=== PATIENT | female | born 1950 | race Caucasian/White ===

== ENCOUNTER → 2017-07-11 12:28 | Outpatient (CLI) | payer MEDICARE, SELFPAY ==
--- NOTE | 2017-07-11 12:39 | HPBI_ITS ---
MAMMOGRAPHY - BILATERAL SCREENING REASON FOR EXAM: Female, 67 years old. Routine annual screening examination. PERTINENT HISTORY: Non-contributory. TECHNIQUE: Digital bilateral breast cara (3D mammographic acquisition) in the CC and MLO projections. 2-D mediolateral oblique (MLO) and craniocaudad (CC) views of both breasts were obtained. CAD: Full Field Digital Mammography with Computer Added Detection was performed. COMPARISON: Comparison is made with prior study dated June 29, 2016 and June 27, 2015. FINDINGS: Breast Composition: The breasts are heterogeneously dense, which may obscure small masses. There are no dominant masses or suspicious calcifications. No other significant abnormalities are identified. There has been no significant change since the prior study. HPBI/SCREENING MAMM (CAD), BILAT IMPRESSION: Stable bilateral screening mammogram. Yearly follow-up mammogram recommended. (A) ASSESSMENT CATEGORY: BIRADS Category 1: Negative. A letter regarding these results will be sent to the patient by the facility within 30 days. Approximately 10% of breast cancers are not detected by mammography. A normal mammogram should not delay biopsy of a clinically suspicious abnormality. [id number] Electronically Signed: Darryn Mora MD at 8:13 EST Tel [phone], Service support ,
== END ==
PROVIDERS: Family Provider Family Medicine; PCP Family Medicine; Visit Provider Family Medicine
DX: Z12.31 Encounter for screening mammogram for malignant neoplasm of breast (principal)
CPT/HCPCS: 77063; 77067

== ENCOUNTER → 2017-08-02 10:52 | Outpatient (CLI) | payer MEDICARE, SELFPAY ==
[2017-08-02 11:50] LABS: Hematocrit 41.7 % (37-47); Hemoglobin 14.8 g/dl (12.0-15.0); Mean Corp Hgb Conc 35.5 g/gl (32-36); Mean Corpuscular Hgb 30.6 pg (27.0-32.0); Mean Corpuscular Volume 86.2 fL (81-99); Platelet Count 184 K/mm3 (150-450); RBC Distribution Width CV 13.8 % (11.6-14.6); RBC Distribution Width SD 43.3 fl (35.1-43.9); Red Blood Count 4.84 M/mm3 (4.2-5.4)
[2017-08-02 11:56] LABS: Scan Indicated on CBC? Y/N NO
[2017-08-02 12:30] LABS: ALB/GLOB Ratio 0.9 RATIO (0.9-2.4); AST(SGOT) 17 U/L (15-37); Alanine Aminotransfer ALT/SGPT 22 U/L (13-56); Albumin, Serum 3.7 g/dL (3.2-5.0); Alkaline Phosphatase 113 U/L (45-117); Anion Gap 10 (5-15); BUN 12 mg/dL (7-18); BUN/Creat Ratio 14.1 RATIO (10-20); Chloride 105 mmol/L (98-107); Cholesterol 307 mg/dL (200); Creatinine, Serum 0.85 mg/dL (0.55-1.02); EST Glomerular Filtration Rate 71 mL/min (>60); Est Glom Filt Rate - Afr Amer 86 mL/min (>60); Globulin 3.9 g/dL (2.2-4.2); Glucose 97 mg/dL (74-106); High Density Lipoprotein 46 mg/dL; Potassium 3.7 mmol/L (3.5-5.1); Protein, Total 7.6 g/dL (6.4-8.2); Sodium Level 139 mmol/L (136-145); Thyroid Stim Hormone (TSH) 0.73 uIU/mL (0.358-3.74); Triglycerides 348 mg/dL; Very Low Density Lipoprotein 70 mg/dL (5-40)
[2017-08-03 08:51] LABS: Vitamin D,25 Hydroxy 26.3 ng/mL (29.95-100.01)
== END ==
PROVIDERS: Family Provider Family Medicine; PCP Family Medicine; Visit Provider Family Medicine
DX: E61.1 Iron deficiency (principal); I47.1 Supraventricular tachycardia; E78.00 Pure hypercholesterolemia, unspecified; E55.9 Vitamin D deficiency, unspecified
CPT/HCPCS: 36415; 80053; 80061; 82306; 84443; 85027

== ENCOUNTER 2017-09-19 10:30 | Outpatient (RCR) | payer MEDICARE, SELFPAY ==
--- NOTE | 2017-08-19 09:28 | HP.PTEVAL_ITS ---
Patient's Visit Information DESI ANDERSON is a 67 year old F referred to Physical Therapy by Tony HUIZAR with a diagnosis of R ankle pain.. Date of Evaluation: 08/19/17 Physical Therapist: Gelacio Baldwin DPT, OC - Visit Plan Frequency: 3x /Week Duration: 4-6 Weeks Plan: 3x/week for 2-6 weeks. 1. US nonthermal R post tibial tendon and STM to R foot and ankle. 2. strengthen painfree R ankle. 3. stretch gastroc-soleus and post tibial tendon. 4. monitor arch support needs. 5. Balance check when ankle feeling better. - Subjective Subjective: Has rolled R ankle out a couple times. Son has gravel driveway and wears allegras. Had therapy recently for R quad as it was atrophied. It is better as she can get her foot in the car now. Lifting hurts outside of leg though. Ankle hurt on the bone which is better but hell is stiff and inside of ankle hurts. Soleus muscle (pointing) hurts. They have been hurting for a while. Turned it out in March and then walked on it for a week and needed pain pills. Daily pain since. Wears compression device. Feels like it is unstable and can push her off balance. No dizzyness. No numbness. Sleeping is OK. Not employed. 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 Not overly active. No exercises. Has plantar fasciitis and does not walk alot. Ankles feel weak. - Pain R medial ankle pain Pain Intensity (Out of 10): 0 Pain Intensity Range: 0, 4 - Objective Walks gingerly but no antalgia today, slow and I. Transfers I. Ankle aROM B 0 DF tightness in soleus and gastrfoc. INv/ev/PF full and without pain. Tenderness R post tibial tendon very tender max. Slightly swollen R foot. Pt has plastic orthotics at home but has not worn in a long time, willing to dig them out and try to use them. Strength is 4/5 throughout ankles but R inversion is painful medial ankle. Balance appears good. Pes planus R>L. - Goals Goal 1:: No tenderness R post tibial tendon. Goal Time Frame: 4-6 Weeks Goal 2:: patient state pain 1/10 at worst and 90% imporved. Goal Time Frame: 4-6 Weeks Goal 3:: I with approp ankle strength and use of arch support Goal Time Frame: 4-6 Weeks - Rehabilitation Potential Physical Therapy Diagnosis: R post tibial tendonitis. Rehabilitation Potential: Fair - Anticipated Interventions Patient/Client Instruction: Educate patient on: Condition, Plan of Care For the Purpose of:: To decrease pain, To increase ROM, To improve nutrient delivery to tissue, To improve gait and locomotor functions Therapeutic Exercise to Include: Strength training, Flexibilty training, Passive ROM, Active ROM For the Purpose of:: To decrease pain, To increase ROM, To improve nutrient delivery to tissue, To improve muscle performance and motor function, To improve gait and locomotor functions Manual Therapy Techniques to Include: Soft tissue mobilization For the Purpose of:: To improve nutrient delivery to tissue Cryotherapy (ice pack, ice massage): Yes Ultrasound (thermal/non thermal): Yes - nonthermal For the Purpose of:: To decrease pain, To decrease swelling/inflammation Thank you for the opportunity to evaluate your patient. For Medicare and Medicare HMO plans, please review the plan of care and approve it. It will need to be FAXED BACK to us at [phone] for Medicare purposes. Please let me know if there are questions or concerns regarding this plan of care. Physician Signature: Date:
--- NOTE | 2017-09-19 10:57 | HP.PTDCSUM ---
HP - PT D/C Summary It has been my pleasure to treat DESI ANDERSON under orders from Tony Lynn, for the diagnosis of R ankle pain. for a total of 8 visit(s). Discharge Date: 09/19/17 Please see the following information for a summary of their discharge status. - Subjective Subjective: Ankle is good until walked at [facility]. Hurt medially 3/[address] with dog, took about an hour. Otherwise not avoiding anything. Saw doctor and ankle doing well. That walk was yesterday and it is much better . Hurt 5/10 yesterday. [place] better upson sitting. - Pain R medial ankle pain Pain Intensity (Out of 10): 0 - Overall Improvement % Improvement: 75 - Objective Objective/Function: walks well without deviations, steps reciprocal with one rail. SLS 20 sec eo 4 sec ec. OVERALLS TILL DOING WELL AND WILLC ONTINUE VIA HEP - Goals Goal 1:: No tenderness R post tibial tendon. Goal Progress: Goal Met Goal 2:: patient state pain 1/10 at worst and 90% imporved. Goal Progress: Progressing Goal 3:: I with approp ankle strength and use of arch support Goal Progress: Goal Met - Plan Plan: D/C - D/C Information Discharge Comments: Doing well and will continue and let doctor know if pain returns. Emphasized proper arch support footwear and weaning abck to activities. If there are questions or concerns regarding this patient's physical therapy, please feel free to call me at [phone]. Thank you for the referral of this patient. Sincerely, Gelacio Baldwin, DPT, OC
== END 2017-09-19 19:00 | disposition home or self-care (01) ==
LOC: PT 10:30
PROVIDERS: Family Provider Family Medicine; PCP Family Medicine; Visit Provider Family Medicine
DX: M25.571 Pain in right ankle and joints of right foot (principal); R29.898 Other symptoms and signs involving the musculoskeletal system
CPT/HCPCS: 97035; 97110; 97161; 97530

== ENCOUNTER → 2017-12-22 10:46 | Outpatient (CLI) | payer MEDICARE, SELFPAY ==
--- NOTE | 2017-12-22 10:54 | RAD_ITS ---
STUDY: X-RAY - RIGHT SHOULDER REASON FOR EXAM: Female, 67 years old. Pain, decreased range of motion TECHNIQUE: 4 view(s) of the shoulder. COMPARISON: None. FINDINGS: Normal glenohumeral articulation. Normal acromioclavicular joint. Normal acromion. Normal humeral head and visualized proximal humerus. The soft tissue structures are unremarkable. Normal visualized pulmonary apex. RAD/Shoulder min 2 Views IMPRESSION: Normal x-ray examination of the shoulder. Electronically Signed: Vic Gaffney MD at 11:18 EDT , Service support ,
== END ==
PROVIDERS: Family Provider Family Medicine; PCP Family Medicine; Visit Provider Family Medicine
DX: M25.511 Pain in right shoulder (principal)
CPT/HCPCS: 73030

== ENCOUNTER → 2018-01-23 07:31 | Outpatient (CLI) | payer MEDICARE, SELFPAY ==
[2018-01-23 10:25] LABS: Hematocrit 39.2 % (37-47); Hemoglobin 13.6 g/dl (12.0-15.0); Mean Corp Hgb Conc 34.7 g/gl (32-36); Mean Corpuscular Hgb 30.2 pg (27.0-32.0); Mean Corpuscular Volume 87.1 fL (81-99); Mean Platelet Vol. 10.7 fl (6.2-12.0); Platelet Count 229 K/mm3 (150-450); RBC Distribution Width CV 13.5 % (11.6-14.6); RBC Distribution Width SD 41.7 fl (35.1-43.9); White Blood Count 7.5 K/mm3 (4.4-11.0)
[2018-01-23 10:30] LABS: Scan Indicated on CBC? Y/N NO
[2018-01-23 10:44] LABS: AST(SGOT) 18 U/L (15-37); Alanine Aminotransfer ALT/SGPT 24 U/L (13-56); Albumin, Serum 3.6 g/dL (3.2-5.0); Alkaline Phosphatase 121 U/L (45-117); Anion Gap 14 (5-15); BUN 13 mg/dL (7-18); BUN/Creat Ratio 14.7 RATIO (10-20); Chloride 105 mmol/L (98-107); Cholesterol 189 mg/dL (200); Creatinine, Serum 0.89 mg/dL (0.55-1.02); EST Glomerular Filtration Rate 67 mL/min (>60); Est Glom Filt Rate - Afr Amer 81 mL/min (>60); Globulin 3.7 g/dL (2.2-4.2); Glucose 111 mg/dL (74-106); High Density Lipoprotein 51 mg/dL; Iron 87 ug/dL (50-170); Potassium 3.7 mmol/L (3.5-5.1); Protein, Total 7.3 g/dL (6.4-8.2); Sodium Level 143 mmol/L (136-145); Triglycerides 320 mg/dL; Very Low Density Lipoprotein 64 mg/dL (5-40)
== END ==
PROVIDERS: Family Provider Family Medicine; PCP Family Medicine; Visit Provider Family Medicine
DX: E61.1 Iron deficiency (principal); E78.00 Pure hypercholesterolemia, unspecified; E55.9 Vitamin D deficiency, unspecified
CPT/HCPCS: 36415; 80053; 80061; 82306; 83540; 85027

== ENCOUNTER 2018-01-24 10:00 | Outpatient (RCR) | payer MEDICARE, SELFPAY ==
--- NOTE | 2018-01-09 11:30 | HP.PTEVAL ---
Patient's Visit Information DESI ANDERSON is a 67 year old F referred to Physical Therapy by Tony Lynn with a diagnosis of R shoulder pain. Date of Evaluation: 01/09/18 Physical Therapist: Raudel Wallace - Visit Plan Frequency: 1-2x /Week Duration: 4-6 Weeks Plan: Start with AROM over head and IR motions. US to reduce symptoms. Joint mobs to increase increase joint mechanics allowing for great motions. Progress postural strengthening and RTC stabilization as tolerated. - Subjective Subjective: Pt. is here today for her initial evaluation with diagnosis of R shoulder pain. Pt. reports having occassionals over the years on her R shoulder. Pt. reports no pain in R anteior shoulder. Increases pain: lifting arm over head, sleeping iwth arm over her head on her stomach, getting arm behind her back and lifting. Decreases pain: not doing the things that aggrevate it. Pt. has not trialed Ice/heat/meds. Pt. denies N/T and weakness in her R shoulder. It feels like my ar locked up on me. Pt. is hopeful to reduce symptoms symptoms and increase ROM allowing for increased toleracne with ADls and house work. - Pain R shoulder Pain Intensity (Out of 10): 3 Pain Intensity Range: 2, 6 - Objective POSTURE: Pt. had rounded shoulders, FH posture, bilateral scapular protraction. PALPATION: Pt. has increased tenderness at subacromial space, R shoulder only. No pain in UT or bicipital groove. NEUROLOGICAL: Normal, all intact. ROM: L shoulder- full no pain. R shoulder- flexion 167deg mild increase NW at end range, abd 175deg pain at end range, functional ER C4 mild increase NW, functional IR L5 increase NW. MMT: L shoulder- 5/5 throughout; R shoulder- flexion 4+/5 NE, abd 4/5 increase nW, ext 5/5 NE, ER 4+/5 increase NW, IR 4+/5 increase NW. - Special Tests R Shoulder External Rotation Lag Test - RC Tear: Negative R Shoulder Lift Off Test - Subscapular Tear: Negative R Shoulder Empty Can - SS: Positive R Shoulder Belly Press - SupScap: Negative R Shoulder Neer - Impingement: Positive R Shoulder Billingsley Chano - Impingement: Positive R Shoulder Biceps Load Test - Labrum: Positive R Shoulder Speeds Test - Labrum/Biceps: Negative - Goals Goal 1:: Pt. to be I with HEP. Goal Time Frame: 4-6 Weeks Goal 2:: Pt. to have increased R shoulder ROM to full without increase in symptoms. Goal Time Frame: 4-6 Weeks Goal 3:: Pt. to sleep throughout the night without increase in symptoms. Goal Time Frame: 4-6 Weeks Goal 4:: Pt. to have increased R shoulder strength by 1/2 grade of all effected musculature. Goal Time Frame: 4-6 Weeks - Rehabilitation Potential Physical Therapy Diagnosis: Pt. has signs and symptoms consistent with R shoulder pain. Pt. has what appears to be an impingment syndrome with subsequent hypombility with IR. Pt. has increased pain with reaching overhead and with UB dressing with reaching behind her back. Pt. would benefit from PT to increase ROM, decrease symptoms and progress R shoulder strength. Rehabilitation Potential: Excellent - Anticipated Interventions Patient/Client Instruction: Educate patient on: Condition, Plan of Care, Risk Factors, Benefits of Fitness Program For the Purpose of:: To improve safety, To improve health and function, To foster healthy habits, To improve decision making, To facilitate caregiver knowledge, To improve self management, To prevent re-injury, To improve ability to perform tasks related to life management, To improve tolerance to ADL's Therapeutic Exercise to Include: Strength training, Power training, Postural training, Flexibilty training, Passive ROM, Active ROM For the Purpose of:: To decrease pain, To decrease swelling/inflammation, To increase ROM, To improve nutrient delivery to tissue, To increase oxygenation perfusion, To improve ability of physical actions for home/community/work/leisure, To improve health of tissue, To decrease soft tissue restriction, To increase flexibility/ROM Manual Therapy Techniques to Include: Trigger point massage, Mobilization, Passive ROM, Functional dry needling, Soft tissue mobilization For the Purpose of:: To decrease pain, To increase ROM, To improve nutrient delivery to tissue, To increase oxygenation perfusion, To improve muscle performance and motor function, To improve ability to perform ADL's, To improve health of tissue, To decrease soft tissue restriction, To increase flexibility/ROM IF ES: Yes Cryotherapy (ice pack, ice massage): Yes Thermo therapy (hot pack): Yes Ultrasound (thermal/non thermal): Yes For the Purpose of:: To decrease pain, To decrease swelling/inflammation, To increase ROM, To improve nutrient delivery to tissue Thank you for the opportunity to evaluate your patient. For Medicare and Medicare HMO plans, please review the plan of care and approve it. It will need to be FAXED BACK to us at [phone] for Medicare purposes. Please let me know if there are questions or concerns regarding this plan of care. Physician Signature: Date:
--- NOTE | 2018-07-27 15:43 | HP.PT.NRP ---
HP - Discharge Summary (1) - Patient Information DESI ANDERSON was seen in my office for initial evaluation on 01/09/18. The following Plan of Care was established for this patient: Initial Frequency: 1-2x /Week Initial Duration: 4-6 Weeks - Anticipated Interventions Patient/Client Instruction: Educate patient on: Condition, Plan of Care, Risk Factors, Benefits of Fitness Program For the Purpose of:: To improve safety, To improve health and function, To foster healthy habits, To improve decision making, To facilitate caregiver knowledge, To improve self management, To prevent re-injury, To improve ability to perform tasks related to life management, To improve tolerance to ADL's Therapeutic Exercise to Include: Strength training, Power training, Postural training, Flexibilty training, Passive ROM, Active ROM For the Purpose of:: To decrease pain, To decrease swelling/inflammation, To increase ROM, To improve nutrient delivery to tissue, To increase oxygenation perfusion, To improve ability of physical actions for home/community/work/leisure, To improve health of tissue, To decrease soft tissue restriction, To increase flexibility/ROM Manual Therapy Techniques to Include: Trigger point massage, Mobilization, Passive ROM, Functional dry needling, Soft tissue mobilization For the Purpose of:: To decrease pain, To increase ROM, To improve nutrient delivery to tissue, To increase oxygenation perfusion, To improve muscle performance and motor function, To improve ability to perform ADL's, To improve health of tissue, To decrease soft tissue restriction, To increase flexibility/ROM IF ES: Yes Cryotherapy (ice pack, ice massage): Yes Thermo therapy (hot pack): Yes Ultrasound (thermal/non thermal): Yes For the Purpose of:: To decrease pain, To decrease swelling/inflammation, To increase ROM, To improve nutrient delivery to tissue This patient was last seen in our office 01/24/18. Pertinent comments regarding their Physical therapy will appear below: Pt. was seen for the initial evaluation then 1 follow up and has been seen in several months. Pt. will be Dc from PT at this point in time. At this point I will be discontinuing this patient from physical therapy. I would be happy to see this patient again in the future if found appropriate by the physician. Thank you! Raudel Wallace DPT
== END 2018-01-24 19:00 | disposition home or self-care (01) ==
LOC: PT 10:00
PROVIDERS: Family Provider Family Medicine; PCP Family Medicine; Visit Provider Family Medicine
DX: M25.511 Pain in right shoulder (principal)
CPT/HCPCS: 97035; 97110; 97161

== ENCOUNTER → 2018-04-13 16:00 | Outpatient (CLI) | payer MEDICARE, SELFPAY | PROVIDERS: Family Provider Family Medicine; PCP Family Medicine; Referring Provider Family Medicine; Visit Provider Family Medicine | DX: R10.9 Unspecified abdominal pain (principal) | CPT/HCPCS: 87086; 87088 ==

== ENCOUNTER → 2018-07-21 09:33 | Outpatient (CLI) | payer MEDICARE, SELFPAY ==
[2018-05-07 12:50] VITALS: BMI 33.5
[2018-07-21 12:14] LABS: Erythrocyte Sedimentation Rate 19 mm/hr (0-30)
[2018-07-21 12:17] LABS: Absolute Lymphocyte Count 1.55 X10^3/ul (0.83-4.51); Absolute Neutrophil Count 4.7 X10^3/uL (2.0-7.7); Basophil# 0.05 X10^3/uL; Basophil% 0.7 % (0-1); Eosinophil# 0.13 X10^3/uL; Eosinophils% 1.9 % (0-5); Hematocrit 40.5 % (37-47); Lymphocyte # 1.55 X10^3/ul (4.0); Lymphocyte % 22.2 % (19-41); Mean Corp Hgb Conc 34.6 g/gl (32-36); Mean Corpuscular Hgb 30.1 pg (27.0-32.0); Mean Corpuscular Volume 87.1 fL (81-99); Mean Platelet Vol. 10.4 fl (6.2-12.0); Monocyte# 0.53 X10^3/uL; Monocyte% 7.6 % (0-10); Neutrophil # 4.68 X10^3/uL (2.7-7.7); Neutrophil % 67.2 % (47-70); Platelet Count 222 K/mm3 (150-450); RBC Distribution Width CV 14.2 % (11.6-14.6); RBC Distribution Width SD 44.3 fl (35.1-43.9); Red Blood Count 4.65 M/mm3 (4.2-5.4)
[2018-07-21 12:18] LABS: POSITIVE COUNT NO; POSITIVE DIFFERENTIAL NO; POSITIVE MORPHOLOGY NO
[2018-07-21 12:33] LABS: ALB/GLOB Ratio 1.2 RATIO (0.9-2.4); AST(SGOT) 13 U/L (15-37); Alanine Aminotransfer ALT/SGPT 24 U/L (13-56); Albumin, Serum 3.8 g/dL (3.2-5.0); Alkaline Phosphatase 120 U/L (45-117); Amylase 48 U/L (25-115); Anion Gap 11 (5-15); BUN 12 mg/dL (7-18); BUN/Creat Ratio 13.8 RATIO (10-20); Calcium,Total 8.8 mg/dL (8.5-10.1); Chloride 106 mmol/L (98-107); Creatinine, Serum 0.87 mg/dL (0.55-1.02); EST Glomerular Filtration Rate 68 mL/min (>60); Est Glom Filt Rate - Afr Amer 83 mL/min (>60); Globulin 3.2 g/dL (2.2-4.2); Glucose 105 mg/dL (74-106); Lipase 133 U/L (73-393); Potassium 3.9 mmol/L (3.5-5.1); Sodium Level 141 mmol/L (136-145)
== END ==
PROVIDERS: Family Provider Family Medicine; PCP Family Medicine; Referring Provider Family Medicine; Visit Provider Family Medicine
DX: Q45.3 Other congenital malformations of pancreas and pancreatic duct (principal)
CPT/HCPCS: 36415; 80053; 82150; 83690; 85025; 85652

== ENCOUNTER → 2018-08-01 09:22 | Outpatient (CLI) | payer MEDICARE, SELFPAY ==
[2018-05-07 12:50] VITALS: BMI 33.5
--- NOTE | 2018-08-01 09:28 | MRI_ITS ---
STUDY: MRI ABDOMEN WITH AND WITHOUT CONTRAST REASON FOR EXAM: Female, 68 years old. Pancreatic axis, left lower quadrant pain. Compared to prior MRI of 2013. TECHNIQUE: Standardized fat and water weighted pulse sequences were obtained in all 3 orthogonal planes post contrast administration. 10 ml of Gadavist contrast material was administered intravenously for the contrast portion of the examination. COMPARISON: MRI abdomen 05/04/2013. FINDINGS: Osseous structures: No acute process. No significant degenerative features are apparent. There is mild thoracolumbar S-shaped scoliosis. Body wall soft tissues: No acute process. Inferior chest: Large sliding hiatal hernia containing much of the gastric fundus. Clear lung bases. Normal cardiac size without pericardial effusion. Nondilated aorta and central pulmonary arteries. Hepatobiliary: Normal gallbladder, biliary tree. Mild hepatomegaly, craniocaudal right liver 19.2 cm. There is mild generalized signal dropout in the liver parenchyma on opposed phase imaging consistent with hepatic steatosis. Pancreas: There is no ductal ectasia. There is no focal cystic lesion. As seen on prior imaging there is signal dropout in the pancreatic head and uncinate process on opposed phase imaging consistent with fatty infiltration of the pancreatic head. There are no suspicious lesions. Spleen: Normal spleen with small adjacent splenules. Adrenal glands: Normal. Urinary tract: Left kidney inferior pole 5.5 mm cyst nonenhancing. Simple cystic features but too small for definitive imaging characterization. Unchanged compared to prior imaging of 2013, favoring benignity. Right kidney inferior pole intracortical cyst without enhancement, 7.9 mm, stable, simple cystic features, but with size under 1 cm too small for definitive imaging characterization. Favoring benignity based on stability. Right renal inferior pole exophytic cyst measuring 3.5 cm, thin-walled, homogeneous T2 hyperintensity centrally, no enhancement, previously measuring 2.7 cm, benign Bosniak category 1 features. Moderate enlargement is not considered suspicious. There is no hydronephrosis. There is normal renal cortical thickness with symmetric nephrograms. Retroperitoneum: No mass or lymphadenopathy. Bowel: Evaluated portions of the large and small bowel exhibit no acute abnormality. MRI/MRI Abd WITH and W/O Contrast IMPRESSION: Subcentimeter cysts of the kidneys bilaterally are stable compared to prior imaging of 2012 and exhibit grossly simple cystic features. Size less than 1 cm may be too small for definitive characterization. Stability favors benignity. Dominant cyst of the right kidney has slightly increased in size compared to prior imaging but maintains simple cystic features, benign, Bosniak category 1. There is no pancreatic cyst. There was no pancreatic cyst on prior MRI abdomen. On prior imaging, there was evidence of fatty infiltration of the pancreatic head and uncinate process. This feature is stable and benign. No suspicious lesions of the pancreas. Mild hepatomegaly with evidence of mild hepatic steatosis. Prominent sliding hiatal hernia containing much of the gastric fundus, unchanged. Mild scoliosis. Electronically Signed: Sea Baron MD at 19:15 EST Tel , Service support ,
== END ==
PROVIDERS: Family Provider Family Medicine; PCP Family Medicine; Referring Provider Family Medicine; Visit Provider Family Medicine
DX: K86.9 Disease of pancreas, unspecified (principal)
CPT/HCPCS: 74183; A9585

== ENCOUNTER → 2018-08-31 10:16 | Outpatient (CLI) | payer MEDICARE, SELFPAY ==
[2018-05-07 12:50] VITALS: BMI 33.5
--- NOTE | 2018-08-31 10:19 | BI_ITS ---
MAMMOGRAPHY - BILATERAL SCREENING REASON FOR EXAM: Female, 68 years old. Routine annual screening examination. PERTINENT HISTORY: Non-contributory. Remote right stereotactic breast biopsy. TECHNIQUE: Digital bilateral breast cara (3D mammographic acquisition) in the CC and MLO projections. 2-D mediolateral oblique (MLO) and craniocaudad (CC) views of both breasts were obtained. CAD: Full Field Digital Mammography with Computer Added Detection was performed. COMPARISON: Comparison is made with prior study dated July 11, 2017 and June 29, 2016. FINDINGS: Breast Composition: The breasts are heterogeneously dense, which may obscure small masses. There are no dominant masses or suspicious calcifications. A tissue clip marker is seen in the mid medial aspect of the right breast. No other significant abnormalities are identified. There has been no significant change since the prior study. BI/SCREENING MAMM (CAD), BILAT IMPRESSION: Stable bilateral screening mammogram. Yearly follow-up mammogram recommended. (A) ASSESSMENT CATEGORY: BIRADS Category 1: Negative. A letter regarding these results will be sent to the patient by the facility within 30 days. Approximately 10% of breast cancers are not detected by mammography. A normal mammogram should not delay biopsy of a clinically suspicious abnormality. [id number] Electronically Signed: Darryn Mora, at 11:19 EDT , Service support ,
--- NOTE | 2018-08-31 10:36 | BD_ITS ---
STUDY: DUAL ENERGY X-RAY ABSORPTIOMETRY / DXA REASON FOR EXAM: Female, 68 years old. The patient is postmenopausal. Loss of height. TECHNIQUE: Bone Mineral Density (BMD) measurements of lumbar spine and bilateral hips were obtained. COMPARISON: Comparison is made with prior study dated June 29, 2016. FINDINGS: Lumbar Spine (L1-L4): g/cm2 (1.032) / T-score (-1.2) / Z-score (0.4) Findings are suggestive of osteopenia with a low fracture risk. Left Femur Total: g/cm2 (0.931) / T-score (-0.6) / Z-score (0.8) Left Femoral Neck: g/cm2 (0.768) / T-score (-1.9) / Z-score (-0.3) Right Femur Total: g/cm2 (0.904) / T-score (-0.8) / Z-score (0.6) Right Femoral Neck: g/cm2 (0.734) / T-score (-2.2) / Z-score (-0.5) The T-Scores on the most recent prior examination were: Lumbar Spine (L1-L4): There has been improvement of bone density since the previous examination. Left Femur Total: which represents a worsening of 1.5%. Right Femur Total: which represents an improvement of 2.7%. BD/Dexa Bone Density Study IMPRESSION: The patient is considered osteopenic as outlined below according to World Elias Organization (WHO) criteria with a moderate fracture risk. There has been improvement of bone density since the previous examination. Reference Information: The T-score is the number of standard deviations above or below the standard which is normal for young adults at their peak bone mineral density. The World Health Organization (WHO) interprets the T-scores as follows: Above -1 Normal bone density Between -1 and -2.5 Osteopenia Equal to / or below -2.5 Osteoporosis As a practical clinical guideline, osteopenia may be graded as follows: Mild -1 through -1.5 Moderate -1.6 through -2.0 Severe -2.1 through -2.4 The Z-score is the number of standard deviations above or below age-matched controls. A Z-score of less than -1.5 would be considered abnormal. References: 1. NIH Osteoporosis and Related Bone Diseases http://www.osteo.org 2. International Society for Clinical Densitometry http://www.iscd.org 3. National Osteoporosis Foundation http://www.nof.org Electronically Signed: Darryn Mora, at 11:29 EDT , Service support ,
== END ==
PROVIDERS: Family Provider Family Medicine; PCP Family Medicine; Referring Provider Obstetrics & Gynecology Gynecology; Visit Provider Family Medicine
DX: Z12.31 Encounter for screening mammogram for malignant neoplasm of breast (principal); Z78.0 Asymptomatic menopausal state; M85.80 Other specified disorders of bone density and structure, unspecified site
CPT/HCPCS: 77063; 77067; 77080

== ENCOUNTER → 2019-04-04 09:42 | Outpatient (CLI) | payer MEDICARE, SELFPAY ==
[2018-05-07 12:50] VITALS: BMI 33.5
[2019-04-04 12:49] LABS: AST(SGOT) 12 U/L (15-37); Alanine Aminotransfer ALT/SGPT 23 U/L (13-56); Albumin, Serum 3.5 g/dL (3.2-5.0); Alkaline Phosphatase 116 U/L (45-117); Anion Gap 6 (5-15); BUN 10 mg/dL (7-18); BUN/Creat Ratio 12.1 RATIO (10-20); Chloride 105 mmol/L (98-107); Cholesterol 282 mg/dL (200); Creatinine, Serum 0.82 mg/dL (0.55-1.02); EST Glomerular Filtration Rate 73 mL/min (>60); Est Glom Filt Rate - Afr Amer 88 mL/min (>60); Globulin 3.6 g/dL (2.2-4.2); Glucose 111 mg/dL (74-106); High Density Lipoprotein 44 mg/dL; Potassium 3.8 mmol/L (3.5-5.1); Protein, Total 7.1 g/dL (6.4-8.2); Sodium Level 138 mmol/L (136-145); Triglycerides 398 mg/dL; Very Low Density Lipoprotein 80 mg/dL (5-40)
== END ==
PROVIDERS: Family Provider Family Medicine; PCP Family Medicine; Referring Provider Family Medicine; Visit Provider Family Medicine
DX: E78.00 Pure hypercholesterolemia, unspecified (principal)
CPT/HCPCS: 36415; 80053; 80061

== ENCOUNTER → 2019-10-02 08:39 | Outpatient (CLI) | payer MEDICARE, SELFPAY ==
[2018-05-07 12:50] VITALS: BMI 33.5
--- NOTE | 2019-10-02 08:42 | BI_ITS ---
MAMMOGRAPHY - BILATERAL SCREENING REASON FOR EXAM: Female, 69 years old. Routine annual screening examination. PERTINENT HISTORY: Non-contributory. Remote right stereotactic breast biopsy. TECHNIQUE: Digital bilateral breast linwood (3D mammographic acquisition) in the CC and MLO projections. 2-D mediolateral oblique (MLO) and craniocaudad (CC) views of both breasts were obtained. CAD: Full Field Digital Mammography with Computer Added Detection was performed. COMPARISON: Comparison is made with prior study dated August 31, 2018 and July 11, 2017. FINDINGS: Breast Composition: The breasts are heterogeneously dense, which may obscure small masses. There are no dominant masses or suspicious calcifications. Stable benign-appearing bilateral axillary lymph nodes. No other significant abnormalities are identified. There has been no significant change since the prior study. BI/SCREEN MAMM (CAD) W/LINWOOD BILAT IMPRESSION: Stable bilateral screening mammogram. Yearly follow-up mammogram recommended. (A) ASSESSMENT CATEGORY: BIRADS Category 2: Benign. A letter regarding these results will be sent to the patient by the facility within 30 days. Approximately 10% of breast cancers are not detected by mammography. A normal mammogram should not delay biopsy of a clinically suspicious abnormality. [id number] Electronically Signed: Darryn Mora, at 9:46 EDT , Service support ,
== END ==
PROVIDERS: PCP Family Medicine; Referring Provider Family Medicine; Visit Provider Family Medicine
DX: Z12.31 Encounter for screening mammogram for malignant neoplasm of breast (principal)
CPT/HCPCS: 77063; 77067

== ENCOUNTER → 2019-12-18 09:06 | Outpatient (CLI) | payer MEDICARE, SELFPAY ==
[2018-05-07 12:50] VITALS: BMI 33.5
[2019-12-18 09:55] LABS: Absolute Lymphocyte Count 1.92 X10^3/uL (0.83-4.51); Absolute Neutrophil Count 4.8 X10^3/uL (2.0-7.7); Basophil# 0.05 X10^3/uL; Basophil% 0.7 % (0-1); Eosinophil# 0.18 X10^3/uL; Eosinophils% 2.4 % (0-5); Hematocrit 36.8 % (37-47); Hemoglobin 12.2 g/dL (12.0-15.0); Lymphocyte # 1.92 X10^3/ul (4.0); Lymphocyte % 25.8 % (19-41); Mean Corp Hgb Conc 33.2 g/dL (32-36); Mean Corpuscular Hgb 29.4 pg (27.0-32.0); Mean Corpuscular Volume 88.7 fL (81-99); Mean Platelet Vol. 10.3 fl (6.2-12.0); Monocyte# 0.52 X10^3/uL; NRBC Flagged by Analyzer 0 % (0-5); Neutrophil # 4.75 X10^3/uL (2.7-7.7); Neutrophil % 63.7 % (47-70); Platelet Count 244 K/mm3 (150-450); RBC Distribution Width CV 13.6 % (11.6-14.6); RBC Distribution Width SD 43.8 fl (35.1-43.9); Red Blood Count 4.15 M/mm3 (4.2-5.4); White Blood Count 7.5 K/mm3 (4.4-11.0)
[2019-12-18 10:30] LABS: ALB/GLOB Ratio 1.2 RATIO (0.9-2.4); AST(SGOT) 11 U/L (15-37); Alanine Aminotransfer ALT/SGPT 18 U/L (13-56); Albumin, Serum 3.7 g/dL (3.2-5.0); Alkaline Phosphatase 120 U/L (45-117); Anion Gap 5 (5-15); BUN 16 mg/dL (7-18); Calcium,Total 8.9 mg/dL (8.5-10.1); Chloride 108 mmol/L (98-107); Creatinine, Serum 0.84 mg/dL (0.55-1.02); EST Glomerular Filtration Rate 71 mL/min (>60); Est Glom Filt Rate - Afr Amer 86 mL/min (>60); Globulin 3.1 g/dL (2.2-4.2); Glucose 110 mg/dL (74-106); Potassium 4.1 mmol/L (3.5-5.1); Protein, Total 6.8 g/dL (6.4-8.2); Sodium Level 139 mmol/L (136-145)
== END ==
PROVIDERS: PCP Family Medicine; Referring Provider Family Medicine; Visit Provider Family Medicine
DX: R10.32 Left lower quadrant pain (principal)
CPT/HCPCS: 36415; 80053; 85025; 87086; 87088

== ENCOUNTER → 2019-12-21 10:50 | Outpatient (CLI) | payer MEDICARE, SELFPAY ==
[2018-05-07 12:50] VITALS: BMI 33.5
[2019-12-21 13:26] LABS: Microalbumin,Random Urine 36.3 mg/L (NO RANGE EST.)
== END ==
PROVIDERS: PCP Family Medicine; Referring Provider Family Medicine; Visit Provider Family Medicine
DX: R10.32 Left lower quadrant pain (principal)
CPT/HCPCS: 82043; 82570; 87086; 87088

== ENCOUNTER → 2019-12-24 15:10 | Outpatient (CLI) | payer MEDICARE, SELFPAY ==
[2019-12-24 14:58] VITALS: BMI 32.5
[2019-12-24 15:16] LABS: Bacteria 0 SEEN /hpf (None Seen); Mucous, Urine 0 SEEN /hpf (<or=2+); Red Blood Cells-Urine 0 SEEN /hpf (0-5); Squamous Epithelial Cells - UA 0 SEEN /hpf (5-10); White Blood Cells 0 SEEN /hpf (0-5)
[2019-12-24 18:03] LABS: Color, Urine Yellow (Yellow); Glucose, Dipstick Normal (Normal); Ketone-Dipstick Negative (Negative); Leukocyte Esterase-Dipstick Negative /ul (Negative); Nitrite-Dipstick Negative (Negative); Occult Blood-Urine Negative /ul (Negative); Protein-Dipstick Negative (Negative); Urine Bilirubin Dipstick Negative (Negative); Urine Clarity Clear (Clear); Urine Urobilinogen Normal (Normal); Urine pH 6.5 (5.0 - 8.0)
== END ==
PROVIDERS: PCP Family Medicine; Referring Provider Family Medicine; Visit Provider Family Medicine
DX: R10.32 Left lower quadrant pain (principal)
CPT/HCPCS: 81001; 87086; 87088

== ENCOUNTER 2020-01-01 07:29 | Day surgery (SDC) | payer MEDICARE, SELFPAY ==
[2019-12-24 14:58] VITALS: BMI 32.5
[2020-01-01] VITALS (7 sets, daily range): BP systolic 108–142; BP diastolic 64–71; PULSE 57–64; RESP 15–16; TEMP 36.5–36.7; O2SAT 98–100; BMI 32.0
--- NOTE | 2020-01-01 | COLBX_PTH ---
PATIENT: DESI ANDERSON LOC: EN U#:[id number] AGE/SX: 69/F ROOM: RE01/01/[address]: Dr. Fernandez Asif MD : [id number] BED: DIS: 01/01/2020 SPEC #: [id number] RECD: 01/01/20 13:04 STATUS: KEVIN VENUS #: [id number] ARNOL: 01/01/20 00:[address]: Fernandez Asif DEPT: SURGICAL PATHOLOGY RECD BY: Olman Carpio ENTERED: 01/01/20 13:05 SP TYPE: COLON BX MELISSA DR: Dr. Tony Lynn MD Tissues: COLON BIOPSY Procedures: Surgery Specimen Level IV HEADER OPERATION: Colonoscopy (MAC) PRE-OP DIAGNOSIS: Colonic polyps, abdomen pain TISSUE SUBMITTED: Random colonic biopsy MICROSCOPIC DIAGNOSIS Colon, random biopsy: Fragments of colonic mucosa, no pathologic diagnosis. SJ:nena 01/02/20 MICROSCOPIC DESCRIPTION Slides are reviewed. GROSS DESCRIPTION Received in fixative is one container labeled with the patient's name and designated random colonic biopsy. The specimen consists of multiple irregular fragments of light marsh soft tissue that in aggregate measure 1.5 x 0.5 x 0.1 cm. The specimen is totally submitted in one cassette. / SJ:rg 01/01/20 TC:4 CPT: 89942
[2020-01-01] MEDS: Lactated Ringers 1,000 ML 100 ML IV (08:23)
--- NOTE | 2020-01-01 10:16 | HP.PCM_ITS ---
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 Is patient in pain?: No Allergies No Known Allergies Allergy (Unverified 12/24/19 14:59) Medications amlodipine 5 mg tablet 5 mg PO DAILY tab 12/24/19 [History Confirmed 12/24/19] atenolol 50 mg tablet 50 mg PO DAILY tab 12/24/19 [History Confirmed 12/24/19] atorvastatin 40 mg tablet 40 mg PO DAILY tab 12/24/19 [History Confirmed 12/24/19] calcium carb-vit D3-minerals 600 mg calcium-400 unit tablet 1 tab PO BID 12/24/19 [History Confirmed 12/24/19] citalopram 10 mg tablet 10 mg PO DAILY tab 12/24/19 [History Confirmed 12/24/19] fexofenadine 180 mg tablet 180 mg PO DAILY 12/24/19 [History Confirmed 12/24/19] fluticasone propionate 50 mcg/actuation nasal spray,suspension 2 spray INTRANASAL DAILY 12/24/19 [History Confirmed 12/24/19] lisinopril 10 mg tablet 10 mg PO DAILY tab 12/24/19 [History Confirmed 12/24/19] multivitamin 1 tab PO DAILY 12/24/19 [History Confirmed 12/24/19] omeprazole 40 mg capsule,delayed release 40 mg PO DAILY cap 12/24/19 [History Confirmed 12/24/19] FOR[facility], LAT[facility] Medical History (Updated 12/24/19 @ 14:[address] Fernandez Asif MD) Personal history of colonic polyps (Acute) Abdominal pain (Acute) Abdominal pain (Acute) Acid reflux (Acute) Hemorrhoids (Acute) Hypertension (Chronic) Surgical History (Updated 12/24/19 @ 14:53 by Destinee Jefferson) Hx of right breast biopsy (Acute) Hx of colonoscopy (Acute) History of esophagogastroduodenoscopy (EGD) (Acute) History of bunionectomy of both great toes (Acute) Hx of oral surgery (Acute) Family History (Updated 12/24/19 @ 14:55 by Destinee M Ronny) Sister Diabetes Mother CVA (cerebral vascular accident) High cholesterol Brother High cholesterol Social History (Updated 12/24/19 @ 16:[address] Fernandez Asif MD) Smoking Status: Never smoker alcohol intake: never substance use type: does not use caffeine: Yes what type of physical activity do you participate in: none frequency: does not exercise HPI HPI HPI: DESI ANDERSON, is a 69 F who presents to the office today for surgical consultation regarding a personal history of colon polyps and newer onset of l eft lower quadrant abdominal pain. Patient also has a longstanding history of intermittent gastroesophageal reflux disease. She is referred by her primary care is in Dr. Tony Lynn and a written copy of my surgical consult and recommendations will be returned to him. She saw him in the office on December 18, 2019. She was complaining of intermittent left lower quadrant pain. No fever or chills or sweats or bright red blood per rectum or melena or mucus. She had a colonoscopy done by Dr. Casper Walker 2016 which was notable for 3 adenomatous polyps. She denies family history of colon polyps or colon cancer. She has not had any weight loss. She denies any history of DVT. She intermittently has heartburn. This is been ongoing for approximately 20 years. She infrequently needs omeprazole therapy and she states perhaps once per month. HPI HPI HPI: DESI ANDERSON, is a 69 F who presents to the office today for ROS General General: No weight change, appetite, fatigue, colon cancer, breast cancer or weakness HEENT HEENT: No difficulty swallowing, eye injury, eye surgery, swollen glands or hoarseness Endo Endocrine: No thyroid disease, diabetes mellitus, thyroid cancer, Hair loss, heat intolerance or cold intolerance Skin Skin: No rash or changing moles Musc Musculoskeletal: No back problems, arthritis, rheumatoid arthritis, gout or joint pain Cardio Cardiovascular: Yes high blood pressure; no murmur, pacemaker, heart disease, atrial fibrillation, heart attack, heart stent, palpitations, shortness of breat with exertion or chest pain Psych Psychiatric: No depression, anxiety or hearing voices Resp Respiratory: No shortness of breath, No sleep apnea, No cough, No COPD, No asthma, No emphysema, No wheezing Gastro Gastrointestinal: Yes abdominal pain, No nausea or vomiting, No diarrhea, No constipation, No blood in stool, Yes acid reflux, No hemorrhoids, No ulcers, No gallbladder problem, No black,tarry stools Lon Hematologic: No blood thinners, No blood disorders, No bleeding, No anemia, No blood clots Neuro Neurologic: No weakness Exam Const General: cooperative, healthy appearing, comfortable, no acute distress Nutritional Appearance: obese Orientation: alert, awake [facility] Head: normal to inspection Eyes General: appearance normal, both eyes and all related structures Resp Effort & Inspection: normal respiratory effort Auscultation: clear to auscultation bilaterally Cardio Rate: regular rate Rhythm: regular rhythm Heart Sounds: no murmurs GI Palpation: soft, no hepatosplenomegaly Auscultation: normal bowel sounds Other: No focal tenderness, no rebound, no guarding, no particular finding left lower quadrant Musc Cervical Spine: normal cervical lordosis Neuro Cognition: normal cognition Extrem General: no calf tenderness Psych Affect: normal affect Assessment & Plan Problems 1. Personal history of colonic polyps Z86.010 2. Left lower quadrant abdominal pain R10.32 Plan I recommended the patient a colonoscopy with possible biopsy or polypectomy as indicated. I discussed the technique, benefit, risk and alternatives. She has had an opportunity to ask and have questions answered. She previously has had a remote upper endoscopy which she states was unremarkable. Her heartburn symptoms seem very intermittent and well controlled with medications. Her clinical exam of the abdomen today is rather unremarkable. We discussed potential etiology of diverticulitis or colitis but clinical exam does not correlate currently. Careful inspection with the colonoscope will be pursued an attempt to further assist with diagnosis of left lower quadrant abdominal pain. She has had an opportunity to ask and have questions answered. We will schedule procedure at her discretion. She is aware of Covid-19 pandemic. She is aware that the [facility] is reporting a low local incidence. I appreciate the opportunity of assisting with her surgical care Cc: Dr. Tony Asif M.D., F.A.C.S. I now have records from [facility] dated May 17, 2016. Colonoscopy to the cecum with several snare polypectomies. 3 sessile polyps removed from the colon via hot snare. One was in the hepatic flexure one was in the transverse colon and one was at the splenic flexure. Pathology suggested tubular adenoma at the hepatic flexure. Apparently the others were not submitted. Coding Level of Care Code 91688 Diagnoses Personal history of colonic polyps Z86.010 Left lower quadrant abdominal pain R10.32 ??Abdominal location: left lower quadrant I have re-examined the patient. There are no clinical changes since date of exam. Procedure Criteria Procedure Type: Elective COVID Risk Discussion: The surgeon/proceduralist and patient have discussed in detail the risk of exposure to and/or potential harm posed by the COVID-19 virus with having a surgery/procedure at this time versus the risk of delaying the surgery/procedure. It is not possible to know either the risk of delaying the surgery or procedure or chance of getting an infection with perfect accuracy, but a joint decision was made between the patient and the surgeon/proceduralist to proceed at this time with the scheduled surgery/procedure as indicated on the consent form.
--- NOTE | 2020-01-01 10:46 | OP.COLON_ITS ---
Patient Name: Sanaz Howell Procedure Date: 01/01/2020 10:16 AM Date of : 1950 Age: 69 Procedure: Colonoscopy Indications: High risk colon cancer surveillance: Personal history of colonic polyps Providers: Fernandez Asif MD Referring MD: Velasquez Lynn Medicines: See the Anesthesia note for documentation of the administered medications Patient Profile: Last Colonoscopy: April 2016. Complications: No immediate complications. Procedure: Pre-Anesthesia Assessment: - Prior to the procedure, a History and Physical was performed, and patient medications and allergies were reviewed. The patient's tolerance of previous anesthesia was also reviewed. The risks and benefits of the procedure and the sedation options and risks were discussed with the patient. All questions were answered, and informed consent was obtained. Prior Anticoagulants: The patient has taken no previous anticoagulant or antiplatelet agents. ASA Grade Assessment: II - A patient with mild systemic disease. After reviewing the risks and benefits, the patient was deemed in satisfactory condition to undergo the procedure. After I obtained informed consent, the scope was passed under direct vision. Throughout the procedure, the patient's blood pressure, pulse, and oxygen saturations were monitored continuously. The Colonoscope was introduced through the anus and advanced to the cecum, identified by appendiceal orifice and ileocecal valve. The colonoscopy was performed without difficulty. The patient tolerated the procedure well. The quality of the bowel preparation was adequate to identify polyps. The ileocecal valve and the appendiceal orifice were photographed. Scope In: 10:26:21 AM Scope Withdrawal Time 0 hours 6 minutes 28 seconds Scope Out: 10:38:35 AM Total Procedure Duration Time 0 hours 12 minutes 14 seconds Findings: The digital rectal exam findings include non-thrombosed external hemorrhoids, non-thrombosed internal hemorrhoids and internal hemorrhoids that prolapse with straining, but require manual replacement into the anal canal (Grade III). Scattered diverticula were found in the sigmoid colon. Biopsies for histology were taken with a cold forceps from the entire colon for evaluation of microscopic colitis. Impression: - Non-thrombosed external hemorrhoids, non-thrombosed internal hemorrhoids and internal hemorrhoids that prolapse with straining, but require manual replacement into the anal canal (Grade III) found on digital rectal exam. - Diverticulosis in the sigmoid colon. Biopsied. Recommendation: - Discharge patient to home. - Resume previous diet. - Continue present medications. - Repeat colonoscopy in 5 years for surveillance. - Telephone my office for pathology results in 1 week. Procedure Code(s): --- Professional --- 42795, Colonoscopy, flexible; with biopsy, single or multiple Diagnosis Code(s): --- Professional --- Z86.010, Personal history of colonic polyps K64.2, Third degree hemorrhoids K64.4, Residual hemorrhoidal skin tags K57.30, Diverticulosis of large intestine without perforation or abscess without bleeding CPT copyright 2017 [employer]. All rights reserved. The codes documented in this report are preliminary and upon cognos architect review may be revised to meet current compliance requirements. Fernandez Asif MD 01/01/2020 10:45:56 AM This report has been signed electronically. Number of Addenda: 0 Note Initiated On: 01/01/2020 10:16 AM
--- NOTE | 2020-01-01 10:46 | OP.CCLET_ITS ---
01/01/2020 Velasquez Lynn [address] [place] [address] Re : Colonoscopy procedure for Sanaz Howell Dear Dr. Lynn This procedure was performed on Wednesday, January 01, 2020. My impressions and recommendations are as follows: Impressions : - Non-thrombosed external hemorrhoids, non-thrombosed internal hemorrhoids and internal hemorrhoids that prolapse with straining, but require manual replacement into the anal canal (Grade III) found on digital rectal exam. - Diverticulosis in the sigmoid colon. Biopsied. Recommendations : - Discharge patient to home. - Resume previous diet. - Continue present medications. - Repeat colonoscopy in 5 years for surveillance. - Telephone my office for pathology results in 1 week. My findings are described in the full procedure note, which is enclosed. If I can be of further assistance, please feel free to contact me at Doctor phone number(s): Work: . Sincerely, Fernandez Asif MD 01/01/2020 10:45:56 AM This report has been signed electronically.
== END 2020-01-01 11:21 | disposition home or self-care (01) ==
LOC: EN 07:38 → AC 07:41
PROVIDERS: PCP Family Medicine; Referring Provider Family Medicine; Visit Provider Surgery
PROC: 0DJD8ZZ Inspection of Lower Intestinal Tract, Via Natural or Artificial Opening Endoscopic (ICD-10-PCS; CPT 45378; principal; 2020-01-01 09:40)
DX: Z12.11 Encounter for screening for malignant neoplasm of colon (principal); K21.9 Gastro-esophageal reflux disease without esophagitis; K64.2 Third degree hemorrhoids; K64.4 Residual hemorrhoidal skin tags; K57.30 Diverticulosis of large intestine without perforation or abscess without bleeding; R10.32 Left lower quadrant pain; I10 Essential (primary) hypertension; R00.0 Tachycardia, unspecified; E78.00 Pure hypercholesterolemia, unspecified; F41.9 Anxiety disorder, unspecified; E66.9 Obesity, unspecified; Z68.31 Body mass index [BMI] 31.0-31.9, adult; Z87.19 Personal history of other diseases of the digestive system; Z79.899 Other long term (current) drug therapy
CPT/HCPCS: 45380; 87635; 88305; 94799; J7120; U0003

== ENCOUNTER → 2020-07-22 10:36 | Outpatient (CLI) | payer MEDICARE, SELFPAY ==
[2020-01-01 08:12] VITALS: BMI 32.0
[2020-07-22 12:51] LABS: Hematocrit 35.1 % (37-47); Hemoglobin 11.2 g/dL (12.0-15.0); Mean Corp Hgb Conc 31.9 g/dL (32-36); Mean Corpuscular Hgb 27.2 pg (27.0-32.0); Mean Corpuscular Volume 85.2 fL (81-99); Mean Platelet Vol. 10.4 fl (6.2-12.0); Platelet Count 323 K/mm3 (150-450); Red Blood Count 4.12 M/mm3 (4.2-5.4); White Blood Count 7.2 K/mm3 (4.4-11.0)
[2020-07-22 12:56] LABS: Vitamin D,25 Hydroxy 47.5 ng/mL
[2020-07-22 13:08] LABS: AST(SGOT) 12 U/L (15-37); Alanine Aminotransfer ALT/SGPT 19 U/L (13-56); Albumin, Serum 3.5 g/dL (3.2-5.0); Alkaline Phosphatase 136 U/L (45-117); Anion Gap 7 (5-15); BUN 12 mg/dL (7-18); BUN/Creat Ratio 12.6 RATIO (10-20); Calcium,Total 9.3 mg/dL (8.5-10.1); Chloride 107 mmol/L (98-107); Cholesterol 179 mg/dL (200); Creatinine, Serum 0.96 mg/dL (0.55-1.02); EST Glomerular Filtration Rate 61 mL/min (>60); Est Glom Filt Rate - Afr Amer 74 mL/min (>60); Globulin 3.6 g/dL (2.2-4.2); Glucose 114 mg/dL (74-106); High Density Lipoprotein 57 mg/dL; Iron 30 ug/dL (50-170); Potassium 3.9 mmol/L (3.5-5.1); Protein, Total 7.1 g/dL (6.4-8.2); Sodium Level 139 mmol/L (136-145); Thyroid Stim Hormone (TSH) 1.17 uIU/mL (0.358-3.74); Triglycerides 236 mg/dL; Very Low Density Lipoprotein 47 mg/dL (5-40)
== END ==
PROVIDERS: PCP Family Medicine; Referring Provider Family Medicine; Visit Provider Family Medicine
DX: E61.1 Iron deficiency (principal); F41.1 Generalized anxiety disorder; E55.9 Vitamin D deficiency, unspecified; K21.9 Gastro-esophageal reflux disease without esophagitis; I10 Essential (primary) hypertension
CPT/HCPCS: 36415; 80053; 80061; 82306; 83540; 84443; 85027

== ENCOUNTER 2020-08-05 06:25 | Outpatient (RCR) | payer MEDICARE, SELFPAY ==
[2020-01-01 08:12] VITALS: BMI 32.0
[2020-08-05] MEDS: COVID-19 VACC, MRNA(PFIZER)/PF 30 MCG/0.3 ML SYRINGE IM (10:20)
[2020-08-26] MEDS: COVID-19 VACC, MRNA(PFIZER)/PF 30 MCG/0.3 ML SYRINGE IM (10:06)
== END 2020-11-04 23:59 ==
LOC: IMMUN 06:25
PROVIDERS: PCP Family Medicine; Referring Provider Family Medicine; Visit Provider Family Medicine
DX: Z23 Encounter for immunization (principal)
CPT/HCPCS: 0001A; 0002A; 91300

== ENCOUNTER → 2020-10-13 13:42 | Outpatient (CLI) | payer MEDICARE, SELFPAY ==
[2020-01-01 08:12] VITALS: BMI 32.0
--- NOTE | 2020-10-13 13:44 | BI_ITS ---
MAMMOGRAPHY - BILATERAL SCREENING 3-D TOMOSYNTHESIS REASON FOR EXAM: Female, 70 years old. Routine screening PERTINENT HISTORY: No significant family history, previous biopsy. TECHNIQUE: 2-D mammograms and 3-D Tomosynthesis of the breast (s) were performed. CAD was performed. COMPARISON: 10/02/2019 FINDINGS: The breast composition is heterogeneously dense that can obscure small breast masses. Scattered benign calcifications are seen. No dense spiculated masses or suspicious microcalcifications are identified. No architectural distortion is identified. There is no skin thickening or retraction. There has been no significant change since the prior study. BI/SCRN MAMM (CAD)W/[place]WOOD BILAT IMPRESSION: No mammographic signs of malignancy. Routine yearly mammograms recommended. ASSESSMENT CATEGORY: BIRADS Category 2: Benign. A letter regarding these results will be sent to the patient by the facility within 30 days. FOLLOW UP RECOMMENDATION: Yearly follow up mammogram recommended. (A) Approximately 10% of breast cancers are not detected by mammography. A normal mammogram should not delay biopsy of a clinically suspicious abnormality. Electronically Signed: Vic Gaffney MD at 14:51 EDT , Service support ,
== END ==
PROVIDERS: PCP Family Medicine; Referring Provider Family Medicine; Visit Provider Family Medicine
DX: Z12.31 Encounter for screening mammogram for malignant neoplasm of breast (principal)
CPT/HCPCS: 77063; 77067

== ENCOUNTER → 2020-11-19 10:53 | Outpatient (CLI) | payer MEDICARE, SELFPAY ==
[2020-01-01 08:12] VITALS: BMI 32.0
--- NOTE | 2020-11-19 10:56 | BD_ITS ---
STUDY: DUAL ENERGY X-RAY ABSORPTIOMETRY / DXA REASON FOR EXAM: Female, 70 years old. Z780. Patient is postmenopausal. Loss of height. TECHNIQUE: Bone Mineral Density (BMD) measurements of lumbar spine and bilateral hips were obtained. COMPARISON: Comparison is made with prior study dated 08/31/2018. FINDINGS: Lumbar Spine (L1-L4): g/cm2 (1.014) / T-score (-1.4) / Z-score (0.3) Findings are suggestive of osteopenia with a low fracture risk. Left Femur Total: g/cm2 (0.935) / T-score (-0.6) / Z-score (1.0) Left Femoral Neck: g/cm2 (0.773) / T-score (-1.9) / Z-score (-0.2) Right Femur Total: g/cm2 (0.888) / T-score (-0.9) / Z-score (0.6) Right Femoral Neck: g/cm2 (0.723) / T-score (-2.3) / Z-score (-0.5) The T-Scores on the most recent prior examination were: Lumbar Spine (L1-L4): There has been worsening of bone density since the previous examination. Left Femur Total: which represents an improvement of 0.4%. Right Femur Total: which represents a worsening of 1.8%. BD/Dexa Bone Density Study IMPRESSION: The patient is considered osteopenic as outlined below according to World Elias Organization (WHO) criteria with a high fracture risk. There has been worsening of bone density since the previous examination. Reference Information: The T-score is the number of standard deviations above or below the standard which is normal for young adults at their peak bone mineral density. The World Health Organization (WHO) interprets the T-scores as follows: Above -1 Normal bone density Between -1 and -2.5 Osteopenia Equal to / or below -2.5 Osteoporosis As a practical clinical guideline, osteopenia may be graded as follows: Mild -1 through -1.5 Moderate -1.6 through -2.0 Severe -2.1 through -2.4 The Z-score is the number of standard deviations above or below age-matched controls. A Z-score of less than -1.5 would be considered abnormal. References: 1. NIH Osteoporosis and Related Bone Diseases www osteo.org 2. International Society for Clinical Densitometry www iscd.org 3. National Osteoporosis Foundation www nof.org Electronically Signed: Darryn Mora MD at 15:23 EDT , Service support ,
== END ==
PROVIDERS: PCP Family Medicine; Referring Provider Family Medicine; Visit Provider Family Medicine
DX: Z78.0 Asymptomatic menopausal state (principal)
CPT/HCPCS: 77080

== ENCOUNTER → 2021-01-23 | Outpatient (CLI) | payer MEDICARE, SELFPAY | END | disposition home or self-care (01) | PROVIDERS: PCP Family Medicine; Referring Provider Family Medicine; Visit Provider Family Medicine | DX: Z20.822 Contact with and (suspected) exposure to COVID-19 (principal) | CPT/HCPCS: 87635; U0005; U0003 ==

== ENCOUNTER → 2021-05-07 | Outpatient (CLI) | payer MEDICARE, SELFPAY | END | disposition home or self-care (01) | PROVIDERS: PCP Family Medicine; Referring Provider Family Medicine; Visit Provider Family Medicine | DX: U07.1 COVID-19 (principal) | CPT/HCPCS: 87635; U0005; U0003 ==

== ENCOUNTER 2021-05-08 16:44 | Outpatient (CLI) | payer MEDICARE, SELFPAY ==
[2021-05-08 16:52] VITALS: BP 156/72; PULSE 77; RESP 16; TEMP 37.1; O2SAT 98; BMI 33.5
[2021-05-08] MEDS: 0.9% Saline Lock 10 ML Syringe IV (16:53)
[2021-05-08 18:19] VITALS: BP 148/72; PULSE 61; RESP 16; TEMP 36.7; O2SAT 100
[2021-05-08 19:18] VITALS: BP 155/70; PULSE 62; RESP 16; TEMP 36.6; O2SAT 98
== END 2021-05-08 19:22 | disposition home or self-care (01) ==
LOC: MS3OUT 16:44 → MS3 16:45
PROVIDERS: PCP Family Medicine; Referring Provider Internal Medicine Pulmonary Disease; Visit Provider Internal Medicine Pulmonary Disease
DX: U07.1 COVID-19 (principal)
CPT/HCPCS: J7050; M0245; Q0245; A4216

== ENCOUNTER 2021-07-16 09:51 | Outpatient (CLI) | payer MEDICARE, SELFPAY ==
[2021-07-16 12:12] LABS: Absolute Neutrophil Count 5.2 X10^3/uL (2.0-7.7); Basophil# 0.06 X10^3/uL; Basophil% 0.8 % (0-1); Eosinophil# 0.19 X10^3/uL; Eosinophils% 2.5 % (0-5); Hematocrit 37.9 % (37-47); Hemoglobin 13.1 g/dL (12.0-15.0); Lymphocyte % 19.9 % (19-41); Mean Corp Hgb Conc 34.6 g/dL (32-36); Mean Corpuscular Volume 89.6 fL (81-99); Mean Platelet Vol. 10.9 fl (6.2-12.0); Monocyte# 0.56 X10^3/uL; Monocyte% 7.4 % (0-10); NRBC Flagged by Analyzer 0 % (0-5); Platelet Count 265 K/mm3 (150-450); RBC Distribution Width CV 13.4 % (11.6-14.6); RBC Distribution Width SD 43.9 fl (35.1-43.9); Red Blood Count 4.23 M/mm3 (4.2-5.4); White Blood Count 7.5 K/mm3 (4.4-11.0)
[2021-07-16 12:26] LABS: ALB/GLOB Ratio 1.1 RATIO (0.9-2.4); AST(SGOT) 12 U/L (15-37); Alanine Aminotransfer ALT/SGPT 23 U/L (13-56); Albumin, Serum 3.6 g/dL (3.2-5.0); Alkaline Phosphatase 126 U/L (45-117); Anion Gap 6 (5-15); BUN 18 mg/dL (7-18); BUN/Creat Ratio 22.2 RATIO (10-20); Calcium,Total 9.3 mg/dL (8.5-10.1); Chloride 105 mmol/L (98-107); Cholesterol 185 mg/dL (200); Creatinine, Serum 0.81 mg/dL (0.55-1.02); EST Glomerular Filtration Rate 74 mL/min (>60); Est Glom Filt Rate - Afr Amer 89 mL/min (>60); Globulin 3.2 g/dL (2.2-4.2); Glucose 118 mg/dL (74-106); High Density Lipoprotein 46 mg/dL; Potassium 4.1 mmol/L (3.5-5.1); Protein, Total 6.8 g/dL (6.4-8.2); Sodium Level 138 mmol/L (136-145); Triglycerides 317 mg/dL; Very Low Density Lipoprotein 63 mg/dL (5-40)
== END 2021-07-16 23:59 | disposition home or self-care (01) ==
LOC: MFPLAB 09:55
PROVIDERS: PCP Family Medicine; Referring Provider Family Medicine; Visit Provider Family Medicine
DX: I10 Essential (primary) hypertension (principal); K21.9 Gastro-esophageal reflux disease without esophagitis
CPT/HCPCS: 36415; 80053; 80061; 85025

== ENCOUNTER 2021-09-11 16:03 | Outpatient (CLI) | payer MEDICARE, SELFPAY ==
[2021-09-11 17:46] LABS: Absolute Lymphocyte Count 1.42 X10^3/uL (0.83-4.51); Absolute Neutrophil Count 4.1 X10^3/uL (2.0-7.7); Basophil# 0.03 X10^3/uL; Basophil% 0.5 % (0-1); Eosinophil# 0.14 X10^3/uL; Eosinophils% 2.3 % (0-5); Hematocrit 29.4 % (37-47); Hemoglobin 9.6 g/dL (12.0-15.0); Lymphocyte # 1.42 X10^3/ul (0.83-4.51); Lymphocyte % 22.9 % (19-41); Mean Corp Hgb Conc 32.7 g/dL (32-36); Mean Corpuscular Hgb 28.9 pg (27.0-32.0); Mean Corpuscular Volume 88.6 fL (81-99); Mean Platelet Vol. 10.3 fl (6.2-12.0); Monocyte% 8.1 % (0-10); NRBC Flagged by Analyzer 0 % (0-5); Neutrophil # 4.09 X10^3/uL (2.7-7.7); Neutrophil % 65.9 % (47-70); Platelet Count 300 K/mm3 (150-450); RBC Distribution Width CV 15.5 % (11.6-14.6); RBC Distribution Width SD 49.1 fl (35.1-43.9); Red Blood Count 3.32 M/mm3 (4.2-5.4); White Blood Count 6.2 K/mm3 (4.4-11.0)
[2021-09-11 17:56] LABS: Vitamin B12 880 pg/mL (211-911); Vitamin D,25 Hydroxy 67.1 ng/mL
[2021-09-11 18:13] LABS: ALB/GLOB Ratio 0.9 RATIO (0.9-2.4); AST(SGOT) 11 U/L (15-37); Alanine Aminotransfer ALT/SGPT 21 U/L (13-56); Albumin, Serum 3.3 g/dL (3.2-5.0); Alkaline Phosphatase 114 U/L (45-117); Anion Gap 5 (5-15); BUN 14 mg/dL (7-18); Calcium,Total 8.4 mg/dL (8.5-10.1); Chloride 108 mmol/L (98-107); EST Glomerular Filtration Rate 58 mL/min (>60); Est Glom Filt Rate - Afr Amer 70 mL/min (>60); Ferritin 17 ng/mL (8-252); Globulin 3.5 g/dL (2.2-4.2); Glucose 114 mg/dL (74-106); Iron 27 ug/dL (50-170); Potassium 4.3 mmol/L (3.5-5.1); Protein, Total 6.8 g/dL (6.4-8.2); Sodium Level 138 mmol/L (136-145); Thyroid Stim Hormone (TSH) 1.27 uIU/mL (0.358-3.74)
[2021-09-11 18:25] LABS: Erythrocyte Sedimentation Rate 29 mm/hr (0-30)
== END 2021-09-11 23:59 | disposition home or self-care (01) ==
LOC: MFPLAB 16:06
PROVIDERS: PCP Family Medicine; Referring Provider Family Medicine; Visit Provider Family Medicine
DX: D64.9 Anemia, unspecified (principal); R53.83 Other fatigue
CPT/HCPCS: 36415; 80053; 82306; 82607; 82728; 83540; 84443; 85025; 85652

== ENCOUNTER → 2021-12-18 | Outpatient (CLI) | payer MEDICARE, SELFPAY ==
[2021-12-18 12:33] LABS: Absolute Neutrophil Count 5.2 X10^3/uL (2.0-7.7); Basophil# 0.07 X10^3/uL; Basophil% 0.9 % (0-1); Eosinophils% 2.6 % (0-5); Hematocrit 34.3 % (37-47); Hemoglobin 11.8 g/dL (12.0-15.0); Lymphocyte % 22.4 % (19-41); Mean Corp Hgb Conc 34.4 g/dL (32-36); Mean Corpuscular Hgb 31.7 pg (27.0-32.0); Mean Corpuscular Volume 92.2 fL (81-99); Mean Platelet Vol. 10.3 fl (6.2-12.0); Monocyte# 0.43 X10^3/uL; Monocyte% 5.7 % (0-10); NRBC Flagged by Analyzer 0 % (0-5); Neutrophil # 5.15 X10^3/uL (2.7-7.7); Neutrophil % 67.9 % (47-70); Platelet Count 250 K/mm3 (150-450); RBC Distribution Width CV 15.6 % (11.6-14.6); RBC Distribution Width SD 51.6 fl (35.1-43.9); RET-HE 33.7 pg (30-35); Red Blood Count 3.72 M/mm3 (4.2-5.4); Reticulocyte Count 6.75 % (0.5-1.5); White Blood Count 7.6 K/mm3 (4.4-11.0)
[2021-12-18 12:36] LABS: Ferritin 38 ng/mL (8-252); Iron 62 ug/dL (50-170)
== END | disposition home or self-care (01) ==
LOC: MFPLAB 10:27
PROVIDERS: PCP Family Medicine; Referring Provider Family Medicine; Visit Provider Family Medicine
DX: D64.9 Anemia, unspecified (principal)
CPT/HCPCS: 36415; 82728; 83540; 85025; 85045

== ENCOUNTER → 2022-03-15 | Outpatient (CLI) | payer MEDICARE, SELFPAY ==
[2022-03-15 14:05] LABS: Mucous, Urine 0 SEEN /hpf (<or=2+)
[2022-03-15 15:18] LABS: Color, Urine Yellow (Yellow); Glucose, Dipstick Normal (Normal); Ketone-Dipstick Negative (Negative); Leukocyte Esterase-Dipstick 25 /ul (Negative); Nitrite-Dipstick Negative (Negative); Occult Blood-Urine 25 /ul (Negative); Protein-Dipstick 15 mg/dl (Negative); Urine Bilirubin Dipstick Negative (Negative); Urine Clarity Sl. Cloudy (Clear); Urine Urobilinogen Normal (Normal)
[2022-03-15 15:52] LABS: Bacteria 2+ /hpf (None Seen); Red Blood Cells-Urine 0-5 SEEN /hpf (0-5); Squamous Epithelial Cells - UA 10-25 SEEN /hpf (5-10); White Blood Cells 0-5 SEEN /hpf (0-5)
== END | disposition home or self-care (01) ==
LOC: LABSPEC 14:03
PROVIDERS: PCP Family Medicine; Referring Provider Family Medicine; Visit Provider Family Medicine
DX: R30.0 Dysuria (principal)
CPT/HCPCS: 81001; 87086; 87088

== ENCOUNTER → 2022-07-13 | Outpatient (CLI) | payer MEDICARE, SELFPAY ==
[2022-07-13 17:57] LABS: Hemoglobin 13.5 g/dL (12.0-15.0); Mean Corp Hgb Conc 33.8 g/dL (32-36); Mean Corpuscular Volume 91.7 fL (81-99); Mean Platelet Vol. 10.5 fl (6.2-12.0); Platelet Count 249 K/mm3 (150-450); RBC Distribution Width CV 13.2 % (11.6-14.6); RBC Distribution Width SD 44.1 fl (35.1-43.9); Red Blood Count 4.36 M/mm3 (4.2-5.4); White Blood Count 7.4 K/mm3 (4.4-11.0)
== END | disposition home or self-care (01) ==
LOC: MFPLAB 14:15
PROVIDERS: PCP Family Medicine; Referring Provider Family Medicine; Visit Provider Family Medicine
DX: D64.9 Anemia, unspecified (principal)
CPT/HCPCS: 36415; 85027

== ENCOUNTER 2022-08-02 13:17 | Emergency (ER) | payer MEDICARE, SELFPAY ==
[2022-08-02] VITALS (10 sets, daily range): BP systolic 123–170; BP diastolic 78–156; PULSE 69–78; RESP 14–18; TEMP 36.6; O2SAT 96–100; BMI 34.0; BMI 34.9
--- NOTE | 2022-08-02 13:41 | CT_ITS ---
STUDY: CT BRAIN WITHOUT CONTRAST REASON FOR EXAM: Female, 72 years old. Neuro deficit, acute, stroke suspected RADIATION DOSAGE (If Supplied By Facility): CTDIvol = ( 44.99 ) mGy, DLP = ( 779.24 ) mGycm TECHNIQUE: Transaxial CT imaging of the brain was performed without administration of intravenous contrast material. Individualized dose optimization techniques were used for this CT. COMPARISON: No relevant priors. FINDINGS: Normal soft tissue structures. There is hyperostosis frontalis internus. There is mild cerebral atrophy with widening of the extra-axial spaces and ventricular dilatation. There are areas of decreased attenuation within the white matter tracts of the supratentorial brain, consistent with microvascular disease changes. Normal basal ganglia and thalami. Normal brainstem. Normal cerebellum. There is evidence of gyral hemorrhage overlying the left posterior parietal lobe. No surrounding edema or mass effect is seen. Normal visualized paranasal sinuses. CT/STROKE Brain/Head without Cont IMPRESSION: Focal gyral hemorrhage overlying the posterior gyri of the left parietal lobe. N.B. : The above Results were Read Back by Darryn Mora MD to Bill Melo and understanding confirmed on 08/02/2022 14:24:42 (ET). Electronically Signed: Darryn Mora MD at 14:25 EST ,
--- NOTE | 2022-08-02 13:41 | EKG12_ITS ---
Test Reason : Blood Pressure : / mmHG Vent. Rate : 064 BPM Atrial Rate : 064 BPM P-R Int : 160 ms QRS Dur : 086 ms QT Int : 414 ms P-R-T Axes : 007 -02 -08 degrees QTc Int : 427 ms Normal sinus rhythm Nonspecific T wave abnormality Abnormal ECG Confirmed by CABRERA LENTZ, MELISSA ([id number]), visual effects editor NNEKA MADRID ([id number]) on 08/04/2022 10:00:25 AM Referred By: THIEN Confirmed By:MELISSA REES MD
--- NOTE | 2022-08-02 13:47 | ED.RN ---
spoke with Dr. Melo, not calling stroke alert at this time. NIH 0
--- NOTE | 2022-08-02 13:50 | RAD_ITS ---
STUDY: X-RAY CHEST REASON FOR EXAM: Female, 72 years old. Neuro deficit, acute, stroke suspected TECHNIQUE: Single AP portable view of the chest. COMPARISON: None. FINDINGS: EKG electrodes are seen. Elevation of the right hemidiaphragm. Lungs are clear. There is no demonstrated pleural abnormality. Normal size heart. Normal mediastinum and lisbet. Normal visualized pulmonary arteries. Normal visualized aortic arch and descending thoracic aorta. Normal visualized thoracic spine. Normal visualized ribs, clavicles, and shoulders. Large hiatal hernia. RAD/Chest 1 View IMPRESSION: Large hiatal hernia. The lungs are clear. Electronically Signed: Darryn Mora MD at 14:15 EST ,
[2022-08-02 13:56] LABS: Absolute Lymphocyte Count 2.34 X10^3/uL (0.83-4.51); Absolute Neutrophil Count 5.4 X10^3/uL (2.0-7.7); Basophil# 0.07 X10^3/uL; Basophil% 0.8 % (0-1); Eosinophil# 0.18 X10^3/uL; Eosinophils% 2.1 % (0-5); Hematocrit 42.7 % (37-47); Hemoglobin 14.9 g/dL (12.0-15.0); Lymphocyte # 2.34 X10^3/ul (0.83-4.51); Lymphocyte % 27.1 % (19-41); Mean Corp Hgb Conc 34.9 g/dL (32-36); Mean Corpuscular Hgb 30.8 pg (27.0-32.0); Mean Corpuscular Volume 88.4 fL (81-99); Mean Platelet Vol. 10.2 fl (6.2-12.0); Monocyte# 0.62 X10^3/uL; Monocyte% 7.2 % (0-10); NRBC Flagged by Analyzer 0 % (0-5); Neutrophil # 5.39 X10^3/uL (2.7-7.7); Neutrophil % 62.3 % (47-70); Platelet Count 221 K/mm3 (150-450); RBC Distribution Width CV 12.8 % (11.6-14.6); RBC Distribution Width SD 41.4 fl (35.1-43.9); Red Blood Count 4.83 M/mm3 (4.2-5.4); White Blood Count 8.6 K/mm3 (4.4-11.0)
--- NOTE | 2022-08-02 14:04 | NURSING ---
BLUE TOP HEMOLIZED PER [facility]
[2022-08-02 14:05] LABS: Bedside Glucose 104 mg/dL (74-106)
[2022-08-02 14:15] LABS: Anion Gap 8 (5-15); BUN 12 mg/dL (7-18); BUN/Creat Ratio 13.9 RATIO (10-20); Calcium,Total 9.3 mg/dL (8.5-10.1); Chloride 106 mmol/L (98-107); Creatinine, Serum 0.86 mg/dL (0.55-1.02); EST Glomerular Filtration Rate 69 mL/min (>60); Est Glom Filt Rate - Afr Amer 83 mL/min (>60); Estimated Creatinine Clearance 41.85 ml/min; Glucose 115 mg/dL (74-106); Potassium 3.7 mmol/L (3.5-5.1); Sodium Level 139 mmol/L (136-145); Troponin-I HS 4 pg/mL (3.0-54.0)
[2022-08-02] MEDS: Labetalol (Prefilled) 20 MG/4 ML IV (14:20)
[2022-08-02 14:30] LABS: International Normalized Ratio 1.1; Prothrombin Time (Protime)PT. 13.6 SECONDS (11.7-14.9)
[2022-08-02 14:31] LABS: Partial Thromboplast Time 27.5 Seconds (24.1-36.2)
--- NOTE | 2022-08-02 14:51 | EDS_ITS ---
HPI History of Present Illness Chief Complaint: Neuro S/Sx Narrative Narrative: 72-year-old female, past medical history of hypertension, recently had her medications changed to losartan, presents with right facial paresthesia, and loss of coordination of her right arm. She states that just after 1 PM today, she dropped a few ice cubes. She went to pick 1 up, and had problems flipping it into the sink. Then, she went to swipe on her phone, but missed the phone completely. She also had right sided paresthesias. She denies taking any blood thinners. No recent trauma or falls. She does state that her chiropractor does use a Thera gun on the right side of her head and neck. This was last performed on of last week, 5 days ago. Her symptoms are improving, and she does not feel the paresthesias anymore and feels a little more coordinated with her right hand/arm. [facility] Medical History Abdominal pain Abdominal pain Acid reflux Hemorrhoids Hypertension Personal history of colonic polyps Home Medications amlodipine 5 mg tablet 5 mg PO DAILY 12/24/19 [History Last Taken Unknown] atenolol 50 mg tablet 50 mg PO DAILY 12/24/19 [History Last Taken Unknown] atorvastatin 40 mg tablet 40 mg PO DAILY 12/24/19 [History Last Taken Unknown] calcium carb-vit D3-minerals 600 mg calcium-400 unit tablet 1 tab PO BID 12/24/19 [History Last Taken Unknown] fexofenadine 180 mg tablet 180 mg PO DAILY PRN allergies' 12/24/19 [History Last Taken Unknown] fluticasone propionate 50 mcg/actuation nasal spray,suspension 2 spray intranasal DAILY PRN Allergies 12/24/19 [History Last Taken Unknown] omeprazole 40 mg capsule,delayed release 40 mg PO DAILY PRN GERD 12/24/19 [History Last Taken Unknown] losartan 25 mg tablet 25 mg PO DAILY 07/14/22 [History Last Taken Unknown] Allergy/AdvReac Type Severity Reaction Status Date / Time lisinopril AdvReac Mild Other Verified 08/02/22 13:22 Family History Sister Diabetes Mother CVA (cerebral vascular accident) High cholesterol Brother High cholesterol Surgical History History of bunionectomy of both great toes History of esophagogastroduodenoscopy (EGD) Hx of colonoscopy Hx of oral surgery Hx of right breast biopsy Social History Smoking Status: Never smoker alcohol intake: never substance use type: does not use caffeine: Yes what type of physical activity do you participate in: none frequency: does not exercise ROS ROS ED ROS Narrative Constitutional: No fever, no chills. HEENT: No sore throat. No neck pain. No loss of vision. No rhinorrhea. Cardiovascular: No chest pain. No palpitations. No pedal edema. Respiratory: No cough, no shortness of breath. Abdominal: No abdominal pain. No nausea. No vomiting. Genitourinary: No dysuria. No hematuria. Musculoskeletal: No myalgias. No arthralgias. Neurologic: No headaches. No dizziness. No lightheadedness. Loss of coordination of right arm. Right facial paresthesia/right cheek. No speech difficulty. Skin: No rash. No change in color. Psychiatric: No depression. No anxiety. EXAM Physical Exam Narrative Exam Narrative: NIH stroke scale is 0. Afebrile. Vital signs noted. HEENT: Normocephalic. Atraumatic. PERRL, EOMI. Neck soft and supple. No point tenderness or step off. Cardiovascular: Regular rate and rhythm. No murmurs, rubs, or gallops appreciated. Respiratory: No tachypnea. Lungs clear to auscultation bilaterally. Gastrointestinal: Abdomen soft, nontender, with normoactive bowel sounds. No rebound or guarding. Neurological: Awake. Alert. Nonfocal, nonlateralizing. NIH stroke scale is 0. Normal [id number]. Skin: No rash. Normal color. No pallor. Musculoskeletal: No pedal edema. Full range of motion extremities. Const Vital Signs: 08/02/22 13:20 08/02/22 13:34 08/02/22 13:41 Temperature 97.9 F Temperature Source Temporal Pulse Rate 71 70 70 Respiratory Rate 14 16 18 Blood Pressure 123/89 H 169/156 H 161/80 H Blood Pressure Mean 100 160 107 Pulse Ox 100 96 98 Oxygen Delivery Method Room Air Room Air Room Air 03/06/23 14:11 08/02/22 14:25 08/02/22 14:37 Temperature 98 F Temperature Source Temporal Pulse Rate 69 78 Respiratory Rate 16 18 Blood Pressure 167/97 H 153/78 H Blood Pressure Mean 120 103 Pulse Ox 98 98 Oxygen Delivery Method Room Air Room Air Room Air MDM MDM MDM Narrative Medical decision making narrative: As her NIH stroke scale is 0, stroke team was not activated per se, but stroke orders were entered. Upon arrival, blood pressure was 123/89. There are a few times when it was raised above 160 systolic, but then would come back down below that. CT of the brain was obtained, and in discussion with the radiologist, there is a small amount of hemorrhage noted in the left gyrus/posterior gyrus in the left parietal lobe. I reviewed her laboratory work, she has a normal white count of 8.6, hemoglobin normal at 14.9, platelet count normal at 221. Coagulation studies are negative. [id number] glucose is 104. High- sensitivity troponin is 4. In review of her BMP, it is grossly unremarkable/noncontributory. Upon discussion with the radiologist, I discussed the results with the patient, and she would like to be transferred to the [facility]. I did call the [facility] hemorrhagic stroke phone line. She has been accepted by Dr. Araujo with neurosurgery to the emergency department where she was also excepted by Dr. Tony Neil. I do feel that given her labile blood pressure, and intracranial hemorrhage, that she should be flown by helicopter to the emergency department. It was discussed that her blood pressure parameter was to be below 160 according to the [facility] transfer line. Disposition is transferred. Critical care time 31 minutes. Patient is in guarded condition. Lab Data Attestation: I reviewed the patient's lab results. Labs: Laboratory Results - last 24 hr 08/02/22 08/02/22 08/02/22 13:31 13:49 13:49 WBC 8.6 RBC 4.83 Hgb 14.9 Hct 42.7 MCV 88.4 MCH 30.8 MCHC 34.9 RDW Std Deviation 41.4 RDW Coeff of Rowan 12.8 Plt Count 221 MPV 10.2 Immature Gran % (Auto) 0.500 Neut % (Auto) 62.3 Lymph % (Auto) 27.1 [place] % (Auto) 7.2 Eos % (Auto) 2.1 Baso % (Auto) 0.8 Absolute Neuts (auto) 5.4 Absolute Lymphs (auto) 2.34 Nucleated RBC % 0 PT Cancelled INR Cancelled APTT Cancelled Sodium Potassium Chloride Carbon Dioxide Anion Gap BUN Creatinine Estim Creat Clear Calc Est GFR (MDRD) Af Amer Est GFR (MDRD) Non-Af BUN/Creatinine Ratio Glucose Calcium Troponin I High Sens POC Glucose 104 08/02/22 08/02/22 13:49 14:10 WBC RBC Hgb Hct MCV MCH MCHC RDW Std Deviation RDW Coeff of Rowan Plt Count MPV Immature Gran % (Auto) Neut % (Auto) Lymph % (Auto) [place] % (Auto) Eos % (Auto) Baso % (Auto) Absolute Neuts (auto) Absolute Lymphs (auto) Nucleated RBC % PT 13.6 INR 1.1 APTT 27.5 Sodium 139 Potassium 3.7 Chloride 106 Carbon Dioxide 25.0 Anion Gap 8 BUN 12 Creatinine 0.86 Estim Creat Clear Calc 41.85 Est GFR (MDRD) Af Amer 83 Est GFR (MDRD) Non-Af 69 BUN/Creatinine Ratio 13.9 Glucose 115 H Calcium 9.3 Troponin I High Sens 4 POC Glucose Radiography Diagnostic Testing: Clinical Impression(s) from Imaging Studies Brain CT 08/02/22 13:41 IMPRESSION: Focal gyral hemorrhage overlying the posterior gyri of the left parietal lobe. N.B. : The above Results were Read Back by Darryn Mora MD to Bill Melo and understanding confirmed on 08/02/2022 14:24:42 (ET). Electronically Signed: Darryn Mora MD at 14:25 EST , ADDENDUM: 08/02/22 1432 IMPRESSION: Focal gyral hemorrhage overlying the posterior gyri of the left parietal lobe. N.B. : The above Results were Read Back by Darryn Mora MD to Bill Melo and understanding confirmed on 08/02/2022 14:24:42 (ET). Electronically Signed: Darryn Mora MD at 14:25 EST , Chest X-Ray 08/02/22 13:50 IMPRESSION: Large hiatal hernia. The lungs are clear. Electronically Signed: Darryn Mora MD at 14:15 EST , Critical Care Time Critical Care Time: Yes Critical care time (excluding procedures): 30-74 minutes (31), Including time spent:, Discussing w/Patient &/or Family/Flavor Room Worker, Discussing w/Consultants, Arranging Admission or Transfer and Performing Direct Patient Care at Bedside Discharge Plan Triage Chief Complaint: Neuro S/Sx ED Provider: Bill Melo Dx/Rx/DC Orders Clinical Impression: Intracranial hemorrhage, Stroke, hemorrhagic, Facial paresthesia, Loss of coordination Prescriptions: No Action atorvastatin 40 mg tablet 40 mg PO DAILY atenolol 50 mg tablet 50 mg PO DAILY omeprazole 40 mg capsule,delayed release(DR/EC) 40 mg PO DAILY PRN (Reason: GERD) amlodipine 5 mg tablet 5 mg PO DAILY fluticasone propionate 50 mcg/actuation spray,suspension 2 spray INTRANASAL DAILY PRN (Reason: Allergies) Rx Instructions: administer into each nostril calcium carbonate-vit D3-min 600 mg calcium- 400 unit tablet 1 tab PO BID fexofenadine 180 mg tablet 180 mg PO DAILY PRN (Reason: allergies') losartan 25 mg tablet 25 mg PO DAILY Primary Care Provider: Velasquez Lynn Referrals: Velasquez Lynn MD [Primary Care Provider] - Disposition Disposition: Acute Care Hospital Discharge Location: [facility]
--- NOTE | 2022-08-02 14:54 | NURSING ---
[facility] ETA IS 15 MIN
--- NOTE | 2022-08-02 15:09 | ED.RN ---
spoke with Taina at transfer center for report. no other report needed to [facility] unless condition change.
--- NOTE | 2022-08-02 15:20 | ED.RN ---
spoke with [facility]. offering to give the 2nd dose of labetolol but stated that are going to start their own cardene drip.
--- NOTE | 2022-08-02 15:27 | ED.RN ---
pt had elevated BP at 1440 when MD spoke to pt about transfer- next BP was under goal for hemorrhagic stroke.
--- NOTE | 2022-08-02 15:34 | NURSING ---
This nurse called Leydi at [facility] transfer center and notified them that pt is on their way leaving now
== END 2022-08-02 15:35 | disposition short-term general hospital (02) ==
PROVIDERS: Emergency Provider Emergency Medicine; PCP Family Medicine; Visit Provider Emergency Medicine
DX: I62.9 Nontraumatic intracranial hemorrhage, unspecified (principal); I63.9 Cerebral infarction, unspecified; I10 Essential (primary) hypertension; Z79.899 Other long term (current) drug therapy
CPT/HCPCS: 70450; 71045; 80048; 82962; 84484; 85025; 85610; 85730; 93005; 96374; 99285; A4216

== ENCOUNTER 2022-08-12 14:24 | Inpatient (IN) | payer MEDICARE, SELFPAY ==
[2022-08-12 14:28] VITALS: BP 133/75; PULSE 94; RESP 16; TEMP 36.5; O2SAT 96
--- NOTE | 2022-08-12 14:31 | EX.PCM.HP.RE ---
HPI - General General Date of Admission: 08/12/22 Date of Service: 08/12/22 Chief Complaint: Post stroke debility HPI Narrative SANAZ ANDERSON, is a 72 YO F with a past medical history of hypertension, GERD, moderate to severe osteopenia, hyperlipidemia and colon polyps who presented to the emergency department at [facility] on 08/02/2022 with complaints of right facial numbness, R side paresthesias and loss of coordination of her right hand. After arriving in the emergency department her symptoms began to katharine. The NIH score in the ED was 0. Stat noncontrast CT brain showed a focal gyral hemorrhage overlying the posterior gyri of the left parietal lobe. She was not taking aspirin or an anticoagulant at the time of the bleed. Chest x-ray showed a large hiatal hernia but the lungs were clear. The ER physician discussed the case with [facility] neurosurgery and the patient was transferred to [facility] emergency department by helicopter. NIH upon arrival at [facility] was 0. Repeat CT brain showed a small left subarachnoid hemorrhage within the parietal and temporal sulci. There was no significant mass effect and no midline shift. CTA of the head and neck showed no evidence of proximal vascular occlusion, aneurysm or vascular malformation. A diagnostic cerebral angiogram was normal with no vascular etiology to explain spontaneous subarachnoid hemorrhage. GEMMA done at [facility] showed a normal left ventricular size and function with an estimated ejection fraction of 60 to 65%. Right ventricle was normal in size and function. There was left atrial enlargement present. There was no thrombus visualized in the left atrium, left atrial appendage or right atrium. There was no significant valvular heart disease. There was no evidence of an atrial level shunt on the bubble contrast study. 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 There were acute left parietal infarcts secondary to dissecting/clotted aneurysm. While at [facility] she was diagnosed with aphasia. After being seen by PT/OT/ST a recommendation was made for acute inpt rehab and Sanaz was transferred to [facility] inpt acute rehab on 08/12/22 for 3 hours of therapy daily to restore function at or near her level prior to the stroke. Total cholesterol was 175 and triglycerides were mildly increased to 212. LDL was 86 and the HDL is 47. Hemoglobin A1c was 5.3. She reports that she is having trouble reading and trouble with mothers. Difficulty managing her cell phone. [facility] Medical History (Updated 08/13/22 @ 14:[address] Aisha Horta DO) Abdominal pain Abdominal pain Acid reflux Allergic rhinitis Hemorrhoids Hypertension Osteopenia after menopause Personal history of colonic polyps Home Medications amlodipine 5 mg tablet 10 mg PO QHS BP 12/24/19 [History Last Taken Unknown] atenolol 50 mg tablet 50 mg PO DAILY 12/24/19 [History Last Taken Unknown] atorvastatin 40 mg tablet 40 mg PO DAILY Cholestrol 12/24/19 [History Last Taken Unknown] calcium carb-vit D3-minerals 600 mg calcium-400 unit tablet 1 tab PO BID 12/24/19 [History Last Taken Unknown] fexofenadine 180 mg tablet 180 mg PO DAILY PRN allergies' 12/24/19 [History Last Taken Unknown] fluticasone propionate 50 mcg/actuation nasal spray,suspension 2 spray intranasal DAILY PRN Allergies 12/24/19 [History Last Taken Unknown] omeprazole 40 mg capsule,delayed release 40 mg PO DAILY PRN GERD 12/24/19 [History Last Taken Unknown] losartan 25 mg tablet 100 mg PO DAILY BP 07/14/22 [History Last Taken Unknown] aspirin 81 mg chewable tablet 81 mg PO DAILY Heart health 08/12/22 [History Last Taken Unknown] levetiracetam 1,000 mg tablet 1,000 mg PO BID Preventive seizure risk 08/12/22 [History Last Taken Unknown] Allergy/AdvReac Type Severity Reaction Status Date / Time lisinopril AdvReac Mild Other Verified 08/02/22 13:22 Family History Sister Diabetes Mother CVA (cerebral vascular accident) High cholesterol Brother High cholesterol Surgical History (Updated 08/13/22 @ 14:[address] Aisha Horta DO) History of bunionectomy of both great toes History of esophagogastroduodenoscopy (EGD) Hx of colonoscopy Hx of oral surgery Hx of right breast biopsy Social History (Updated 08/13/22 @ 14:[address] Aisha Horta DO) household members: family and other details: She lives with her 98-year-old mother in a private one-story home with [address]: house pets and animals: Yes (1 dog and 1 cat) Smoking Status: Never smoker alcohol intake: never substance use type: does not use caffeine: Yes what type of physical activity do you participate in: none frequency: does not exercise ROS Constitutional Constitutional: Reports weakness; Denies anorexia, chills, fatigue, fever(s) or night sweats Eyes Eyes: Denies blurry vision, change in vision, discharge from eye(s), double vision, irritation or itchy eyes ENT HEENT: Denies abnormal hearing, dysphagia, headache(s), loss taste/smell, nasal congestion or sore throat Cardiovascular Cardiovascular: Denies chest pain, edema, orthopnea, palpitations or paroxysmal nocturnal dyspnea Respiratory/Chest Respiratory/Chest: Denies cough, shortness of breath at rest or shortness of breath with exertion Gastrointestinal Gastrointestinal: Denies abdominal pain, constipation, diarrhea, dyspepsia, hematochezia, melena, nausea or vomiting Genitourinary Genitourinary: Denies dysuria, urinary hesitancy, urinary incontinence or urinary urgency Musculoskeletal Musculoskeletal: Denies extremity pain, joint pain or neck pain Integumentary Integumentary: Reports dry skin; Denies jaundice, rash or wounds Neurologic Neurologic: Denies abnormal speech, confusion or dizziness Indicators for Scoring Admitted with or Primary Diagnosis of CVA/Stroke: Yes Hx of CVA/Stroke: Yes Modified Júnior Score MRS Score at time of Evaluation: 3-Moderate disability NIHSS NIHSS 1b. LOC Questions: Answers BOTH questions correctly. 1c. LOC Commands: Performs both tasks correctly. 2. Best Gaze: Normal 3. Visual: No visual loss 4. Facial Palsy: Normal symmetrical movements 5a. Left Arm: No drift; arm holds 90 (or 45) degrees for full 10 seconds 5b. Right Arm: No drift; arm holds 90 (or 45) degrees for full 10 seconds 6a. Left Leg: No drift; leg holds 30-degree position for full 5 seconds 6b. Right Leg: No drift; leg holds 30-degree position for full 5 seconds 7. Limb Ataxia: Absent 8. Sensory: Normal; no sensory loss 9. Best Language: [id number] aphasia; 10. Dysarthria: Normal 11. Extinction and Inattention: No abnormality Total: 1 Stroke Questions Stroke Team Activated: No Physical Exam Const alert, oriented x3, no apparent distress and well nourished General Appearance: cooperative and well developed Orientation / Consciousness: Negative for confused HEENT normocephalic and head/scalp atraumatic Mouth: dry mucous membranes Eyes PERRL and EOMs intact bilaterally Neck No nuchal rigidity, supple and No no carotid bruits General: trachea midline Lymph Lymphatic: no lymphadenopathy noted Resp normal respiratory effort, normal air movement and clear to auscultation bilaterally Effort and Inspection: Negative for tachypneic, respiratory distress or labored Cardio regular rate, regular rhythm, S1 normal heart sound, S2 normal heart sound, no murmurs, no rub and no gallops Cardio Narrative: No ectopy GI normal to inspection, nondistended, normoactive bowel sounds, soft to palpation and non-tender GI Narrative: No suprapubic tenderness, no masses, no hepatosplenomegaly and no guarding with palpation. Extremity no calf tenderness General Extremity: Negative for clubbing, cyanosis or edema Skin No no wounds, No no jaundice and No no mottling General Skin Exam: Negative for no breakdown Rashes: No no rashes Neuro CN's II-XII intact bilaterally, no focal motor deficits and no sensory deficits noted Neuro Narrative: Her only deficit at this time is mild aphasia with trouble word finding. Coordination / Balance: [id number] test normal Psych thought process normal, cooperative, affect normal, denies homicidal ideation and denies suicidal ideation Appearance: appropriate Results Lab / Micro Data Result Diagrams: 08/13/22 05:38 08/13/22 05:38 Assessment & Plan Assessment/Plan (1) Debility: (2) Hemorrhagic cerebrovascular accident (CVA): PLAN: MRI showed a aneurysm but, she had 2 cerebral angiograms and they were both negative for aneurysm and AVM's. (3) Aphasia as late effect of cerebrovascular accident: (4) Osteopenia after menopause: (5) Left atrial enlargement: PLAN: Previous hospital is sending a 30 day event monitor in the mail. (6) Hypertension: (7) Acid reflux: (8) Dyslipidemia: (9) Allergic rhinitis: PLAN: Plan PLAN PT for gait stability OT for ADL's ST for evaluation Analgesics as needed Bowel protocol Fall precautions Assess for Anxiety/Depression GI prophylaxis with pantoprazole DVT prophylaxis with SCDs and teds Follow up with PCP and neurology following DC from IP Rehab. We will also need to follow-up with cardiology following the completion of the 30-day event monitor. AM lab including CMP, CBC, Mag and Phos was ordered She has no hx of VTE and she is ambulatory. For now will use TEDS and SCD's for DVT prophylaxis. Charges/Coding Visit Charges Inpatient E&M: 28765 Init Hosp L3
[2022-08-12 20:00] VITALS: BP 126/76; PULSE 94; RESP 15; TEMP 36.8; O2SAT 95
[2022-08-12 20:10] VITALS: O2SAT 98
[2022-08-12 20:30] VITALS: O2SAT 95
[2022-08-12] MEDS: Atorvastatin Calcium 40 MG Tablet PO (20:43)
[2022-08-12] MEDS: levETIRAcetam 1,000 MG Tablet 1000 MG PO (20:43)
[2022-08-12] MEDS: Senna/Docusate Sodium 1 Tablet 2 TABLET PO (20:43)
[2022-08-12] MEDS: amLODIPine 10 MG Tablet PO (20:43)
[2022-08-12] MEDS: Acetaminophen 500 MG Tablet 1000 MG PO (23:39)
[2022-08-13 05:53] VITALS: BMI 34.0
[2022-08-13 06:01] LABS: Absolute Lymphocyte Count 2.48 X10^3/uL (0.83-4.51); Absolute Neutrophil Count 4.9 X10^3/uL (2.0-7.7); Basophil# 0.09 X10^3/uL; Basophil% 1.1 % (0-1); Eosinophil# 0.24 X10^3/uL; Eosinophils% 2.9 % (0-5); Hematocrit 41.9 % (37-47); Hemoglobin 14.7 g/dL (12.0-15.0); Lymphocyte # 2.48 X10^3/ul (0.83-4.51); Lymphocyte % 30.2 % (19-41); Mean Corp Hgb Conc 35.1 g/dL (32-36); Mean Corpuscular Hgb 31.3 pg (27.0-32.0); Mean Corpuscular Volume 89.3 fL (81-99); Mean Platelet Vol. 9.5 fl (6.2-12.0); Monocyte# 0.51 X10^3/uL; Monocyte% 6.2 % (0-10); NRBC Flagged by Analyzer 0 % (0-5); Neutrophil # 4.87 X10^3/uL (2.7-7.7); Neutrophil % 59.4 % (47-70); Platelet Count 295 K/mm3 (150-450); RBC Distribution Width CV 12.7 % (11.6-14.6); RBC Distribution Width SD 41.4 fl (35.1-43.9); Red Blood Count 4.69 M/mm3 (4.2-5.4); White Blood Count 8.2 K/mm3 (4.4-11.0)
[2022-08-13 06:37] LABS: AST(SGOT) 57 U/L (15-37); Alanine Aminotransfer ALT/SGPT 77 U/L (13-56); Albumin, Serum 3.7 g/dL (3.2-5.0); Alkaline Phosphatase 114 U/L (45-117); Anion Gap 8 (5-15); BUN 12 mg/dL (7-18); BUN/Creat Ratio 12.7 RATIO (10-20); Calcium,Total 9.7 mg/dL (8.5-10.1); Chloride 104 mmol/L (98-107); Creatinine, Serum 0.95 mg/dL (0.55-1.02); EST Glomerular Filtration Rate 61 mL/min (>60); Est Glom Filt Rate - Afr Amer 74 mL/min (>60); Estimated Creatinine Clearance 37.88 ml/min; Globulin 3.7 g/dL (2.2-4.2); Glucose 131 mg/dL (74-106); Phosphorus 2.7 mg/dL (2.5-4.9); Potassium 3.3 mmol/L (3.5-5.1); Protein, Total 7.4 g/dL (6.4-8.2); Sodium Level 140 mmol/L (136-145)
[2022-08-13 07:07] VITALS: BP 135/85; PULSE 96; RESP 16; TEMP 36.6; O2SAT 99
[2022-08-13 07:19] VITALS: O2SAT 95
[2022-08-13] MEDS: Aspirin 81 MG TAB.CHEW PO (08:08)
[2022-08-13] MEDS: levETIRAcetam 1,000 MG Tablet 1000 MG PO ×2 (08:08→21:31)
[2022-08-13] MEDS: Losartan Potassium 100 MG Tablet PO (08:08)
[2022-08-13] MEDS: Senna/Docusate Sodium 1 Tablet 2 TABLET PO ×2 (08:08→21:31)
[2022-08-13] MEDS: Acetaminophen 500 MG Tablet 1000 MG PO ×2 (08:13→21:31)
[2022-08-13 11:07] VITALS: BMI 34.0
--- NOTE | 2022-08-13 13:49 | CASEMGMT ---
Social Work patient agreed to have dtr provide copy of advanced directives.
--- NOTE | 2022-08-13 14:18 | REHABEVAL_ITS ---
Admission Information Primary Diagnosis:: Post stroke debility Status Changes from Prescreening?: No changes Identified Actual Problem List:: Cognitve Impr/Memory Loss, Alteration in Sleep, Mobility Impaired, Self Care Deficit and Alteration-Leisure Activ. Potential Problem List:: DVT, Bleeding, Infection, UTI, Aspiration, Falls, Skin Integrity and Depression Risk of Complications DVT: AMISH Hose and Sequential Compression Device Bleeding: Monitor Lab Values, Nursing to Teach Precautions for anti-coagulation therapy., Wound, if applicable, to be assessed every shift. and Stroke patients assessed for lethargy or change in status. Infection: Clinical Staff to Monitor for S/S of infection: and S/S of infection include fever, redness, warmth, etc. Urinary Tract Infection: Monitor for frequency, burning, discomfort, or incontinence. and Nursing will obtain urine sample for urinalysis and C&S when ordered. Aspiration: Clinical staff will monitor for coughing, drooling, congestion., Speech will evaluate swallowing and dsyphasia. and Nursing will monitor patient swallowing during meals. Falls: Patient will be evaluated for Fall Precautions and Patient will be placed on Fall Precautions as indicated per protocol. Skin Breakdown: Nursing will assess skin daily using assessment tool. and Nursing will place on Skin Breakdown Precautions as indicated. Pain: Clinical staff will assess patient's pain level per protocol., Medications will be given, if needed, and the pain level reassessed. and Other methods: Massage, distraction, decrease stimulus, etc. used PRN. Plan of Care Patient requires physician specializing in physical medicine and rehab oversight to provide close medical supervision of rehab issues including: Pain Management, Sleep Problems, Bowel and Bladder, Medical and co-morbidity Management, DVT prophylaxis, Rehabilitation Leadership and Coordination of treatment team Patient needs Physical Therapy: For a minimum of 1 hour and At least 5 out of 7 days Patient needs Physical Therapy to improve:: Mobility, Strengthening, Transfers, Stretching, ROM, Endurance, Stairs, Gait and Balance Patient needs Occupational Therapy: For a minimum of 1 hour and At least 5 out of 7 days Patient needs Occupational Therapy to improve ADL's incl.: Eating, Grooming, Bathing, Dressing, Toileting, Toilet transfers, Community Reintegration, Higher functioning activities, Household tasks, Adaptive Equipment, Splinting and Other activities as determined Patient requires speech therapy: For a minimum of 1 hour and At least 5 out of 7 days Patient requires speech therapy for: Swallowing, Cognition, Language Skills and Compensatory Strategies Patient requires 24/ Rehabilitation Nursing for: Pain Issues, Identifying and preventing risk factors, Monitoring and reporting current medical conditions, Assisting with ambulation, transfer, and all ADL's, Teaching patients about disease process and medications, Family teaching, Providing safe environment, Bowel and Bladder Issues, Skin integrity and Medication Management Patient needs Electrical Wirer/ Case Management for: Discharge Planning, Arranging Home Equipment or Services and Family Interventions Patient needs Dietary and Nutrition Services for: Adequate Nutrition, Nutritional Supplements and Nutritional Education Goals Patient will ambulate: - (700 feet on various surfaces) Patient will complete upper body dressing at: MOD I level of assist. Patient will complete lower body dressing at: MOD I level of assist. Patient will complete toileting at: MOD I level of assist. Patient will perform bathing at: MOD I level of assist. Patient will complete grooming at: MOD I level of assist. Patient will complete home management skills at: MOD I level of assist. Patient will achieve: 12 stairs (With 2 handrails at standby assist) Discharge Planning Estimated Length of stay (days): 14 Anticipated D/C Destination: Home with Outpt Therapy Was Preadmission Assessment Accurate?: Yes
--- NOTE | 2022-08-13 14:51 | PCM.PROGNOTE ---
Subjective Subjective Afebrile VSS Maintaining appropriate oxygen saturation on RA Oral intake is good Discussed with nursing -reported some right groin pain to nursing last night from the site of the angiogram. It was relieved with Tylenol. Reviewed the PT/OT/ST notes Medication list reviewed. All lab from this AM was personally reviewed. CBC is normal. Sodium is normal at 140 but the potassium is low at 3.3. The BUN is 12 and the creatinine is 0.95 which is within her baseline. The estimated creatinine clearance is 37.88. Calcium, phosphorus and magnesium are all within normal limits. Bilirubin and alkaline phosphatase are normal however the AST is mildly increased to 57 and the ALT is mildly increased at 77. Both of these have been normal in the past. While I was in her room talking with her she felt her heart racing and she had a regular tachycardic rhythm. By the time that EKG arrived she was back in NSR. She has a hx of SVT and has been in Atenolol for years but, this was discontinued at the previous hospital. She denies CP, SOB, lightheadedness, calf pain, dysuria and N/V/abd pain. Objective Data Objective Data Vital Signs: Vital Signs Temp Pulse Resp BP Pulse Ox O2 Del Method 97.8 F 96 16 135/85 H 95 Room Air 08/13/22 07:07 08/13/22 07:07 08/13/22 07:07 08/13/22 07:07 08/13/22 07:19 08/13/22 07:19 Oxygen Delivery Method Room Air Weight: 173 lb 4.533 oz Body Mass Index (BMI) 34.0 Intake & Output: Intake and Output for Last 24 Hours 08/11/22 08/12/22 08/13/22 23:59 23:59 23:59 Intake Total 540 / 540 900 / 900 Balance 540 / 540 900 / 900 Lab / Micro Data Result Diagrams: 08/13/22 05:38 08/13/22 05:38 Labs: Laboratory Results - last 24 hr 08/13/22 05:38: WBC 8.2, RBC 4.69, Hgb 14.7, Hct 41.9, MCV 89.3, MCH 31.3, MCHC 35.1, RDW Std Deviation 41.4, RDW Coeff of [place]an 12.7, Plt Count 295, MPV 9.5, Immature Gran % (Auto) 0.200, Neut % (Auto) 59.4, Lymph % (Auto) 30.2, [place] % (Auto) 6.2, Eos % (Auto) 2.9, Baso % (Auto) 1.1 H, Absolute Neuts (auto) 4.9, Absolute Lymphs (auto) 2.48, Nucleated RBC % 0 08/13/22 05:38: Sodium 140, Potassium 3.3 L, Chloride 104, Carbon Dioxide 28.0, Anion Gap 8, BUN 12, Creatinine 0.95, Estim Creat Clear Calc 37.88, Est GFR (MDRD) Af Amer 74, Est GFR (MDRD) Non-Af 61, BUN/Creatinine Ratio 12.7, Glucose 131 H, Calcium 9.7, Phosphorus 2.7, Magnesium 2.0, Total Bilirubin 0.60, AST 57 H, ALT 77 H, Alkaline Phosphatase 114, Total Protein 7.4, Albumin 3.7, Globulin 3.7, Albumin/Globulin Ratio 1.0 Physical Exam Const alert and oriented x3 Constitutional Narrative: looks fatigued today Resp normal air movement and clear to auscultation bilaterally Cardio regular rhythm Cardio Narrative: tachycardic GI normal to inspection, nondistended, normoactive bowel sounds, soft to palpation and non-tender GI Narrative: No guarding with palpation. 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 Continue therapy 2. Start atenolol 25 mg p.o. every 12 hours - She has a hx of tachycardia and has been on Atenolol for many years and it was discontinued at previous hospital 3. Supplement potassium and keep the K around 4. Mag is normal 4. Recheck a potassium on Tuesday. 5. 30 day event monitor at [place] 6. EKG showed NSR with non-specific T wave flattening, possibly due to hypokalemia Charges/Coding Visit Charges Inpatient E&M: 78900 Subs Hosp L2
--- NOTE | 2022-08-13 15:35 | EKG12_ITS ---
Test Reason : TACHY Blood Pressure : / mmHG Vent. Rate : 090 BPM Atrial Rate : 090 BPM P-R Int : 158 ms QRS Dur : 090 ms QT Int : 388 ms P-R-T Axes : 021 -18 -12 degrees QTc Int : 474 ms Normal sinus rhythm Nonspecific T wave abnormality Abnormal ECG Confirmed by DOROTHY LENTZ, LINDA ([id number]), web editor NNEKA MADRID ([id number]) on 08/17/2022 8:48:18 AM Referred By: SUMMER Confirmed By:LINDA DE LA CRUZ MD
[2022-08-13] MEDS: Potassium Chloride Oral Tablet 20 MEQ PO (16:10)
[2022-08-13] MEDS: Atenolol 25 MG Tablet PO ×2 (17:12→21:31)
[2022-08-13 19:34] VITALS: BP 129/73; PULSE 95; RESP 16; TEMP 36.9; O2SAT 98
[2022-08-13 19:45] VITALS: O2SAT 98
[2022-08-13] MEDS: Atorvastatin Calcium 40 MG Tablet PO (21:31)
[2022-08-13] MEDS: amLODIPine 10 MG Tablet PO (21:31)
[2022-08-14] VITALS: BMI 34.0
[2022-08-14] MEDS: Losartan Potassium 100 MG Tablet PO (08:11)
[2022-08-14] MEDS: Senna/Docusate Sodium 1 Tablet 2 TABLET PO ×2 (08:11→20:36)
[2022-08-14] MEDS: Aspirin 81 MG TAB.CHEW PO (08:11)
[2022-08-14] MEDS: levETIRAcetam 1,000 MG Tablet 1000 MG PO ×2 (08:11→20:36)
[2022-08-14 08:12] VITALS: BP 124/70; PULSE 72; RESP 18; TEMP 36.7; O2SAT 97
[2022-08-14] MEDS: Atenolol 25 MG Tablet PO ×2 (09:02→20:36)
[2022-08-14 10:49] VITALS: O2SAT 98
[2022-08-14 11:09] VITALS: BMI 34.0
[2022-08-14] MEDS: Atorvastatin Calcium 40 MG Tablet PO (20:36)
[2022-08-14] MEDS: amLODIPine 10 MG Tablet PO (20:36)
[2022-08-14] MEDS: Acetaminophen 500 MG Tablet 1000 MG PO (20:42)
[2022-08-14] MEDS: 0.9% Saline Lock 10 ML Syringe IV (21:16)
[2022-08-14 21:27] VITALS: BP 148/85; PULSE 72; RESP 14; TEMP 36.6; O2SAT 98
[2022-08-15 00:26] VITALS: BMI 34.0
[2022-08-15 08:00] VITALS: BP 124/61; PULSE 75; RESP 16; TEMP 36.5; O2SAT 97
[2022-08-15] MEDS: levETIRAcetam 1,000 MG Tablet 1000 MG PO ×2 (09:17→21:02)
[2022-08-15] MEDS: Senna/Docusate Sodium 1 Tablet 2 TABLET PO ×2 (09:18→21:02)
[2022-08-15] MEDS: Aspirin 81 MG TAB.CHEW PO (09:18)
[2022-08-15] MEDS: Atenolol 25 MG Tablet PO ×2 (09:18→21:02)
[2022-08-15] MEDS: Losartan Potassium 100 MG Tablet PO (09:19)
--- NOTE | 2022-08-15 10:00 | NURSING ---
Patient has done well for nursing and is very motivated to get better. No complaints of any issues with her heart. Encouraged to drink more water and patient compliant.
[2022-08-15] MEDS: 0.9% Saline Lock 10 ML Syringe IV ×2 (13:52→21:02)
[2022-08-15] MEDS: Pantoprazole Sodium 40 MG Tablet PO (14:21)
[2022-08-15 16:19] VITALS: BMI 34.0
[2022-08-15 19:19] VITALS: BP 135/72; PULSE 64; RESP 14; TEMP 36.7; O2SAT 98
[2022-08-15] MEDS: Atorvastatin Calcium 40 MG Tablet PO (21:02)
[2022-08-15] MEDS: amLODIPine 10 MG Tablet PO (21:02)
[2022-08-15] MEDS: Acetaminophen 500 MG Tablet 1000 MG PO (21:06)
[2022-08-15 21:31] VITALS: BMI 34.0
[2022-08-16 05:48] LABS: Potassium 3.6 mmol/L (3.5-5.1)
[2022-08-16 07:29] VITALS: BP 127/70; PULSE 68; RESP 16; TEMP 36.4; O2SAT 97
[2022-08-16] MEDS: levETIRAcetam 1,000 MG Tablet 1000 MG PO ×2 (07:50→21:05)
[2022-08-16] MEDS: Aspirin 81 MG TAB.CHEW PO (07:50)
[2022-08-16] MEDS: Losartan Potassium 100 MG Tablet PO (07:50)
[2022-08-16] MEDS: Senna/Docusate Sodium 1 Tablet 2 TABLET PO (07:50)
[2022-08-16] MEDS: Pantoprazole Sodium 40 MG Tablet PO (07:50)
[2022-08-16] MEDS: Atenolol 25 MG Tablet PO ×2 (08:57→21:06)
--- NOTE | 2022-08-16 12:09 | PN_ITS ---
Subjective Subjective Sanaz was seen on team rounds today. Her son Jj participated by phone and her daughter Violetta was present in the room. Afebrile VSS-blood sugars are well controlled. There is no tachycardia documented on the nursing notes. Maintaining appropriate oxygen saturation on RA Oral intake is good Discussed with nursing - no problems that need addressed Reviewed the PT/OT/ST notes Medication list reviewed. Potassium today is 3.6, up from 3.3 on 08/13/2022. I would like it to be closer to 4 in light of the tachycardia the end of last week. Magnesium was 2 at presentation. Sanaz denies any palpitations or racing heart since last week. She denies lightheadedness, SOB, CP, nausea/vomiting/abdominal pain, dysuria and calf pain. Her son and dtr are concerned about the monitor prescribed by [facility] not being put on......they have not even received the monitor in the mail yet. They are confused by what was said at [facility] because everyone seemed to contradict each other. They were told that she would need to come back to [facility] for a repeat cerebral angiogram in 2 weeks.......but, she has already had 2 cerebral angiograms and neither showed any evidence of aneurysm or AVM. Sanaz had been having tingling/numbness in the arm for 1 month preceding the stroke. She was not on aspirin or an anticoagulant at the time of the stroke. She does have a history of tachycardia and has been on Atenolol for years. This was discontinued at [facility] and I do not know why? She had a GEMMA at [facility] and this showed no clots in the left atrium, left atrial appendage or the right atrium. There was enlargement of the left atrium. The end of last week she had palpitations and her heart was racing. I was in her room at the time the palpitations started and she had a rapid regular tachycardia. Unfortunately this resolved prior to obtaining an EKG. She was restarted on atenolol and has not had any racing heart or palpitations since that time. Also at the time her potassium was low at 3.3 and she has been supplemented. The potassium today is normal. She has never had AF in the past. Family is concerned that she will not have a 30 day event monitor until she leaves rehab and they would like her to see cardiology. Sanaz would also like to follow up with [facility] in the future rather than going back to [facility]. In fact she has seen Dr. Suarez in the past.....he is the one who placed her on Atenolol way back in the 90's. Objective Data Objective Data Vital Signs: Vital Signs Temp Pulse Resp BP Pulse Ox O2 Del Method 97.5 F L 68 16 127/70 H 97 Room Air 08/16/22 07:29 08/16/22 07:29 08/16/22 07:29 08/16/22 07:29 08/16/22 07:29 08/16/22 07:29 Oxygen Delivery Method Room Air Weight: 173 lb 4.533 oz Body Mass Index (BMI) 34.0 Intake & Output: Intake and Output for Last 24 Hours 08/14/22 08/15/22 08/16/22 23:59 23:59 23:59 Intake Total 1200 / 1200 1900 / 1900 910 / 910 Output Total 1900 / 1900 1500 / 1500 300 / 300 Balance -700 / -700 400 / 400 610 / 610 Lab / Micro Data Result Diagrams: 08/13/22 05:38 08/16/22 05:07 Labs: Laboratory Results - last 24 hr 08/16/22 05:07: Potassium 3.6 Physical Exam Const alert, oriented x3 and no apparent distress Constitutional Narrative: She is calm and pleasant. General Appearance: cooperative Resp normal respiratory effort, normal air movement and clear to auscultation bilaterally Cardio regular rate, regular rhythm, no murmurs, no rub and no gallops Cardio Narrative: No ectopy today. sometimes hard to hear the heart sounds due to very loud bowel sounds. She has a very large sliding hiatal hernia containing much of the gastric fundus on an MRI done in July 2018. GI normal to inspection, nondistended, normoactive bowel sounds, soft to palpation and non-tender GI Narrative: no pain in the chest or the epigastric area. Loud BS's in the lower chest. Extremity no calf tenderness General Extremity: Negative for edema Skin General Skin Exam: no breakdown Rashes: no rashes Assessment & Plan Assessment/Plan (1) Debility: (2) Hemorrhagic cerebrovascular accident (CVA): PLAN: No etiology for the initial SAH ever identified. 2 angiograms showed no aneurysm or AVM. 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 Continue therapy 2. Add 10 mEq of potassium daily to her current drug regimen and recheck the potassium in 4 to [address] Suarez from cardiology 4. Continue atenolol 5. Will need to follow-up with neurology postdischarge from rehab. 6. I agree with the need for a 30-day event monitor however it cannot be applied until she is discharged from acute rehab. If Dr. Suarez feels it is needed at this time will discuss with the nurse patient services manager whether or not we can make an exception. Charges/Coding Visit Charges Inpatient E&M: 48499 Subs Hosp L2
--- NOTE | 2022-08-16 13:10 | CASEMGMT ---
Social Work IDT met with patient, dtr then son via conference call for Team meeting. Discussed patient's progress in PT/OT/ST/SN. Educated to [facility] insurance NRD 08/16 and continued stay is not guaranteed with each review. Pt's goal is to return home alone. However, IDT recommending pt is not alone initially, and has oversight with meds and finances r/t cognitive impairment. Physically pt is progressing well and therapy working on higher level tasks. Recommending continued stay to improve function to return to [facility]. Will ReTeam weekly. SW to continue to follow for DC planning. Maribel Puga, DRIED FRUIT WASHER JEWEL CUPPING MACHINE OPERATOR
[2022-08-16] MEDS: Potassium Chloride Oral Tablet 10 MEQ PO (13:38)
[2022-08-16 15:55] VITALS: BMI 34.0
--- NOTE | 2022-08-16 18:42 | PCM.CONS.C ---
Assessment & Plan Assessment/Plan (1) Tachycardia: PLAN: She likely has a history of supraventricular tachycardia following discontinuation of the atenolol. My recommendation is to resume it as it has been done. She appears to be quite stable at this time. Her ejection fraction is noted to be normal and I would not recommend that we make any changes. There is no reason for anticoagulation at this particular time. (2) Hypertension: PLAN: Her blood pressure appears to be under excellent control at this time and I would not recommend that we make any changes. We will sign off for now and please consult as necessary. HPI Consult Data Date of Consult: 08/16/22 HPI Narrative HPI Narrative: DESI ANDERSON, is a 72 F who presents with a past medical history of hypertension, GERD, moderate to severe osteopenia, hyperlipidemia and a history of palpitations and colon polyps who presented to the emergency department at [facility] on 08/02/2022 with complaints of right facial numbness, R side paresthesias and loss of coordination of her right hand.? After arriving in the emergency department her symptoms began to katharine. The NIH score in the ED was 0.? Stat noncontrast CT brain showed a focal gyral hemorrhage overlying the posterior gyri of the left parietal lobe.? She was not taking aspirin or an anticoagulant at the time of the bleed.? ? The ER physician discussed the case with [facility] neurosurgery and the patient was transferred to [facility] emergency department by helicopter. NIH upon arrival at [facility] was 0.? Repeat CT brain showed a small left subarachnoid hemorrhage within the parietal and temporal sulci.? There was no significant mass effect and no midline shift.? CTA of the head and neck showed no evidence of proximal vascular occlusion, aneurysm or vascular malformation.? A diagnostic cerebral angiogram was normal with no vascular etiology to explain spontaneous subarachnoid hemorrhage.? GEMMA done at [facility] showed a normal left ventricular size and function with an estimated ejection fraction of 60 to 65%.? Right ventricle was normal in size and function.? There was left atrial enlargement present.? There was no thrombus visualized in the left atrium, left atrial appendage or right atrium.? There was no significant valvular heart disease.? There was no evidence of an atrial level shunt on the bubble contrast study.? 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 There were acute left parietal infarcts secondary to dissecting/clotted aneurysm. While at [facility] she was diagnosed with aphasia.? She did have some palpitations while she was on admission and it was thought that maybe she was in a supraventricular tachyarrhythmia but this abated spontaneously. She apparently had not been given her atenolol that she had been taking for her previous history of tachycardia and high blood pressure for a while. This has been resumed and she is doing quite well at this time. [facility] Medical History Abdominal pain Abdominal pain Allergic rhinitis Hemorrhoids Hiatal hernia with GERD Hypertension Osteopenia after menopause Personal history of colonic polyps Home Medications amlodipine 5 mg tablet 10 mg PO QHS BP 12/24/19 [History Last Taken Unknown] atenolol 50 mg tablet 50 mg PO DAILY 12/24/19 [History Last Taken Unknown] atorvastatin 40 mg tablet 40 mg PO DAILY Cholestrol 12/24/19 [History Last Taken Unknown] calcium carb-vit D3-minerals 600 mg calcium-400 unit tablet 1 tab PO BID 12/24/19 [History Last Taken Unknown] fexofenadine 180 mg tablet 180 mg PO DAILY PRN allergies' 12/24/19 [History Last Taken Unknown] fluticasone propionate 50 mcg/actuation nasal spray,suspension 2 spray intranasal DAILY PRN Allergies 12/24/19 [History Last Taken Unknown] omeprazole 40 mg capsule,delayed release 40 mg PO DAILY PRN GERD 12/24/19 [History Last Taken Unknown] losartan 25 mg tablet 100 mg PO DAILY BP 07/14/22 [History Last Taken Unknown] aspirin 81 mg chewable tablet 81 mg PO DAILY Heart health 08/12/22 [History Last Taken Unknown] levetiracetam 1,000 mg tablet 1,000 mg PO BID Preventive seizure risk 08/12/22 [History Last Taken Unknown] Allergy/AdvReac Type Severity Reaction Status Date / Time lisinopril AdvReac Mild Other Verified 08/02/22 13:22 Family History Sister Diabetes Mother CVA (cerebral vascular accident) High cholesterol Brother High cholesterol Surgical History History of bunionectomy of both great toes History of esophagogastroduodenoscopy (EGD) Hx of colonoscopy Hx of oral surgery Hx of right breast biopsy Social History household members: family and other details: She lives with her 98-year-old mother in a private one-story home with [address]: house pets and animals: Yes (1 dog and 1 cat) Smoking Status: Never smoker alcohol intake: never substance use type: does not use caffeine: Yes what type of physical activity do you participate in: none frequency: does not exercise ROS Constitutional Constitutional: Reports weakness; Denies anorexia, chills, fatigue, fever(s) or night sweats Eyes Eyes: Denies blurry vision, change in vision, discharge from eye(s), double vision, irritation or itchy eyes ENT HEENT: Denies abnormal hearing, dysphagia, headache(s), loss taste/smell, nasal congestion or sore throat Cardiovascular Cardiovascular: Denies chest pain, edema, orthopnea, palpitations or paroxysmal nocturnal dyspnea Respiratory/Chest Respiratory/Chest: Denies cough, shortness of breath at rest or shortness of breath with exertion Gastrointestinal Gastrointestinal: Denies abdominal pain, constipation, diarrhea, dyspepsia, hematochezia, melena, nausea or vomiting Genitourinary Genitourinary: Denies dysuria, urinary hesitancy, urinary incontinence or urinary urgency Musculoskeletal Musculoskeletal: Denies extremity pain, joint pain or neck pain Integumentary Integumentary: Reports dry skin; Denies jaundice, rash or wounds Neurologic Neurologic: Denies abnormal speech, confusion or dizziness Physical Exam Const alert, oriented x3 and no apparent distress General Appearance: cooperative HEENT hearing grossly normal bilaterally Head and Scalp: atraumatic Eyes EOMs intact bilaterally Neck General: normal visual inspection Chest inspection of chest normal and palpation of chest normal Resp normal respiratory effort Auscultation: clear to auscultation bilaterally Cardio regular rate, regular rhythm, S1 normal heart sound and S2 normal heart sound Jugular Venous Distention: JVD GI normal to inspection, nondistended, normoactive bowel sounds Extremity normal capillary refill and no pedal edema Peripheral Pulses: Yes pulses 2+ throughout and femoral pulses present Skin no rashes or lesions noted Neuro oriented x3 and CN's II-XII intact bilaterally Psych Appearance: grossly normal and appropriate Risk Stratification Risk Stratification Applicable: No Objective Data Vital Signs: Vital Signs Temp Pulse Resp BP Pulse Ox O2 Del Method 97.5 F L 68 16 127/70 H 97 Room Air 08/16/22 07:29 08/16/22 07:29 08/16/22 07:29 08/16/22 07:29 08/16/22 07:29 08/16/22 07:29 Oxygen Delivery Method Room Air Weight: 173 lb 4.533 oz Body Mass Index (BMI) 34.0 Intake & Output: Intake and Output for Last 24 Hours 08/14/22 08/15/22 08/16/22 23:59 23:59 23:59 Intake Total 1200 / 1200 1900 / 1900 2270 / 2270 Output Total 1900 / 1900 1500 / 1500 1100 / 1100 Balance -700 / -700 400 / 400 1170 / 1170 Lab / Micro Data Result Diagrams: 08/13/22 05:38 08/16/22 05:07 Labs: Laboratory Results - last 24 hr 08/16/22 05:07: Potassium 3.6 Cardiology Labs/Tests 08/16/22 05:07: Potassium 3.6 Rhythm: EKG: ECHO: Stress Test: Cardiac Cath: PCI: CT Surgery: Holter monitor: EPS: PPM: CXR: Chest CT Scan:
[2022-08-16 19:22] VITALS: BP 126/63; PULSE 64; RESP 18; TEMP 36.3; O2SAT 96
[2022-08-16] MEDS: Atorvastatin Calcium 40 MG Tablet PO (21:05)
[2022-08-16] MEDS: amLODIPine 10 MG Tablet PO (21:06)
--- NOTE | 2022-08-17 03:21 | NURSING ---
Reviewed and agreer with Alayna DALEY, documentation and assessment charting.
[2022-08-17] MEDS: Potassium Chloride Oral Tablet 10 MEQ PO (08:05)
[2022-08-17] MEDS: Aspirin 81 MG TAB.CHEW PO (08:05)
[2022-08-17] MEDS: levETIRAcetam 1,000 MG Tablet 1000 MG PO ×2 (08:05→21:35)
[2022-08-17] MEDS: Losartan Potassium 100 MG Tablet PO (08:05)
[2022-08-17] MEDS: Atenolol 25 MG Tablet PO ×2 (08:05→21:35)
[2022-08-17] MEDS: Pantoprazole Sodium 40 MG Tablet PO (08:05)
[2022-08-17] MEDS: Senna/Docusate Sodium 1 Tablet 2 TABLET PO ×2 (08:05→21:34)
[2022-08-17 09:09] VITALS: BP 125/61; PULSE 61; RESP 16; TEMP 36.7; O2SAT 97
[2022-08-17 09:12] VITALS: BMI 34.0
--- NOTE | 2022-08-17 09:40 | PCM.PROGNOTE ---
Subjective Subjective Afebrile VSS Maintaining appropriate oxygen saturation on RA Oral intake is good Discussed with nursing - no problems that need addressed Reviewed the PT/OT/ST notes Medication list reviewed. She was seen in consultation by Dr. Suarez from the [facility] last evening and found to be stable. She remains in normal sinus rhythm. He sees no indication for anticoagulation at this time. We will continue atenolol. Okay to defer 30-day event monitor until she is released from rehab. She would like to follow-up with Dr. Suarez post discharge. I called her dtr and explained what cardiology has to say and that Sanaz would like to follow up in [place] with neurology and cardiology rather than go back to [facility]. Leanne told me that she would have to discuss this with Jj prior to any appts being made. Sanaz tells me that she is sleeping well at night and her appetite is good. She denies lightheadedness, cephalgia, shortness of breath, chest pain, palpitations, nausea/vomiting, dysuria and calf pain. She has had no seizure activity since admitting to acute rehab and will receive her last dose of Keppra tonight. Objective Data Objective Data Vital Signs: Vital Signs Temp Pulse Resp BP Pulse Ox O2 Del Method 98.1 F 61 16 125/61 H 97 Room Air 08/17/22 09:09 08/17/22 09:09 08/17/22 09:09 08/17/22 09:09 08/17/22 09:09 08/17/22 09:09 Oxygen Delivery Method Room Air Weight: 173 lb 4.533 oz Body Mass Index (BMI) 34.0 Intake & Output: Intake and Output for Last 24 Hours 08/15/22 08/16/22 08/17/22 23:59 23:59 23:59 Intake Total 1900 / 1900 2270 / 2270 240 / 240 Output Total 1500 / 1500 1100 / 1100 Balance 400 / 400 1170 / 1170 240 / 240 Lab / Micro Data Result Diagrams: 08/13/22 05:38 08/16/22 05:07 Physical Exam Const alert, oriented x3 and no apparent distress General Appearance: cooperative Resp clear to auscultation bilaterally Cardio regular rate, regular rhythm and no gallops GI normal to inspection, nondistended, normoactive bowel sounds, soft to palpation and non-tender Extremity no calf tenderness General Extremity: Negative for edema Skin General Skin Exam: no breakdown Rashes: no rashes Psych cooperative and affect normal Appearance: appropriate Activity / Motor Behavior: Negative for restless Assessment & Plan Assessment/Plan (1) Debility: (2) 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 Continue therapy 2. Defer 30-day event monitor until after she is discharged from acute rehab 3. She will follow-up with Dr. Adin Suarez post discharge if her son and dtr are in agreement. In the event she will follow up with Dr. Suarez would prescribe the 30 day event monitor from [facility] [place] and then she will follow up with Dr. Suarez to discuss the results. 4. Will need to follow-up with neurology post discharge and she would like to do this in [place]. We will have nursing schedule an appointment with either Dr. Esquivel or Dr. Felipe if her children agree. 5. Blood pressure is well controlled on the current drug regimen. 6. Recheck potassium and magnesium prior to discharge. The goal for the potassium is to keep it around 4 and for the magnesium to keep it around 2. Charges/Coding Visit Charges Inpatient E&M: 28360 Subs Hosp L2
--- NOTE | 2022-08-17 16:18 | CHAPLAIN ---
Type of Pastoral Visit _x__ Initial Visit ___ Follow-up Visit ___ On-call Visit ___ General Patient Visit ___ Spiritual Assessment ___ Family Conference ___ Bereavement ___ Rapid Response ___ Code Blue ___ Other (describe below) Pastoral Care Referral From _x__ Patient ___ Family ___ Nurse ___ Physician ___ State Patrol Officer ___ Cotton Stomper ___ Other (describe below) Sacrament/Intervention _x__ Active listening ___ Anointing ___ Latter Day ___ Bereavement ___ Communion _x__ Marilu exploration ___ _x__ Life review _x__ Prayer ___ Reconciliation ___ Sacrament of Sick _x__ Supportive presence ___ Wedding ___ Other (describe below) Pastoral Comments patient is eager to talk and have a visit; pt is expressive about support she is receiving and her family that is assisting; pt has good support system and positive about her future and recovery; pt welcomes support and prayers
[2022-08-17 19:33] VITALS: BP 128/65; PULSE 63; RESP 16; TEMP 36.5; O2SAT 97
[2022-08-17] MEDS: Atorvastatin Calcium 40 MG Tablet PO (21:35)
[2022-08-17] MEDS: amLODIPine 10 MG Tablet PO (21:35)
[2022-08-18 07:29] VITALS: BP 121/70; PULSE 70; RESP 15; TEMP 35.8; O2SAT 99
[2022-08-18] MEDS: Atenolol 25 MG Tablet PO ×2 (09:09→21:46)
[2022-08-18] MEDS: Losartan Potassium 100 MG Tablet PO (09:09)
[2022-08-18] MEDS: Pantoprazole Sodium 40 MG Tablet PO (09:09)
[2022-08-18] MEDS: Potassium Chloride Oral Tablet 10 MEQ PO (09:10)
[2022-08-18] MEDS: Aspirin 81 MG TAB.CHEW PO (09:10)
[2022-08-18] MEDS: Senna/Docusate Sodium 1 Tablet 2 TABLET PO ×2 (09:10→21:46)
[2022-08-18 13:39] VITALS: BMI 34.0
[2022-08-18 19:15] VITALS: BP 122/60; PULSE 80; RESP 17; TEMP 36.4; O2SAT 97
[2022-08-18 19:45] VITALS: O2SAT 97
[2022-08-18] MEDS: amLODIPine 10 MG Tablet PO (21:45)
[2022-08-18] MEDS: Atorvastatin Calcium 40 MG Tablet PO (21:46)
[2022-08-19 07:25] VITALS: BP 118/70; PULSE 67; RESP 16; TEMP 36.1; O2SAT 96
[2022-08-19] MEDS: Aspirin 81 MG TAB.CHEW PO (07:35)
[2022-08-19] MEDS: Potassium Chloride Oral Tablet 10 MEQ PO (07:36)
[2022-08-19] MEDS: Pantoprazole Sodium 40 MG Tablet PO (08:06)
[2022-08-19] MEDS: Senna/Docusate Sodium 1 Tablet 2 TABLET PO ×2 (08:06→21:03)
[2022-08-19] MEDS: Losartan Potassium 100 MG Tablet PO (08:07)
--- NOTE | 2022-08-19 12:06 | PN_ITS ---
Subjective Subjective Afebrile VSS-blood pressure is well controlled and within goal. Maintaining appropriate oxygen saturation on RA Oral intake of fluids is less than I would like it to be. Yesterday she had 1080 in. Discussed with nursing - no problems that need addressed Reviewed the PT/OT/ST notes Medication list reviewed. Atenolol was held this a.m. due to her systolic being less than 120. Sanaz tells me that she did not sleep well last night because she was anxious about some interactions she has had with her dtr. Her dtr is an anxious person as well and she wants to do what is best for her mother but, it sometimes causes tension. Sanaz denies palpitations, lightheadedness, shortness of breath, nausea/vomiting/abdominal pain, dysuria, calf pain, palpitations and vertigo. Her only complaint is the frustration she has about the decline in her cognition since the stroke. Objective Data Objective Data Vital Signs: Vital Signs Temp Pulse Resp BP Pulse Ox O2 Del Method 96.9 F L 67 16 118/70 96 Room Air 08/19/22 07:25 08/19/22 07:25 08/19/22 07:25 08/19/22 07:25 08/19/22 07:25 08/19/22 07:25 Oxygen Delivery Method Room Air Weight: 173 lb 4.533 oz Body Mass Index (BMI) 34.0 Intake & Output: Intake and Output for Last 24 Hours 08/17/22 08/18/22 08/19/22 23:59 23:59 23:59 Intake Total 970 / 970 1080 / 1200 360 / 360 Output Total 600 / 600 350 / 350 Balance 370 / 370 730 / 850 360 / 360 Lab / Micro Data Result Diagrams: 08/13/22 05:38 08/16/22 05:07 Physical Exam Const alert, oriented x3 and no apparent distress General Appearance: cooperative Resp clear to auscultation bilaterally Cardio regular rate and regular rhythm GI normal to inspection, nondistended, normoactive bowel sounds, soft to palpation and non-tender Extremity Negative for no calf tenderness General Extremity: Negative for edema Assessment & Plan Assessment/Plan (1) Debility: (2) 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 Continue therapy 2. Add trazodone 50 mg at bedtime as needed for insomnia Charges/Coding Visit Charges Inpatient E&M: 64431 [facility] Hosp L1
[2022-08-19 13:38] VITALS: BMI 34.0
[2022-08-19 19:44] VITALS: BP 119/69; PULSE 73; RESP 14; TEMP 36.9; O2SAT 98
[2022-08-19 20:50] VITALS: BP 119/69; PULSE 73; RESP 14; TEMP 36.9; O2SAT 98; BMI 34.0
[2022-08-19] MEDS: amLODIPine 10 MG Tablet PO (21:04)
[2022-08-19] MEDS: Atorvastatin Calcium 40 MG Tablet PO (21:04)
[2022-08-19] MEDS: traZODone 50 MG Tablet PO (21:04)
--- NOTE | 2022-08-20 02:00 | NURSING ---
Reviewed and agree with Diana DALEY, documentation and assessment charting.
[2022-08-20 07:31] VITALS: BP 121/70; PULSE 78; RESP 16; TEMP 36.6; O2SAT 97
[2022-08-20] MEDS: Potassium Chloride Oral Tablet 10 MEQ PO (08:25)
[2022-08-20] MEDS: Aspirin 81 MG TAB.CHEW PO (08:25)
[2022-08-20] MEDS: Losartan Potassium 100 MG Tablet PO (08:25)
[2022-08-20] MEDS: Pantoprazole Sodium 40 MG Tablet PO (08:26)
[2022-08-20 08:38] VITALS: BP 105/61; PULSE 82
[2022-08-20] MEDS: Atenolol 25 MG Tablet PO ×2 (09:57→20:20)
[2022-08-20 17:00] VITALS: BMI 34.0
[2022-08-20 20:15] VITALS: BP 130/64; PULSE 72; RESP 18; TEMP 37; O2SAT 97; BMI 34.0
[2022-08-20] MEDS: Senna/Docusate Sodium 1 Tablet 2 TABLET PO (20:20)
[2022-08-20] MEDS: traZODone 50 MG Tablet PO (20:21)
[2022-08-20] MEDS: Atorvastatin Calcium 40 MG Tablet PO (20:21)
[2022-08-20] MEDS: amLODIPine 2.5 MG Tablet 7.5 MG PO (21:41)
[2022-08-21 07:56] VITALS: BP 109/55; PULSE 70; RESP 16; TEMP 36; O2SAT 97
[2022-08-21] MEDS: Losartan Potassium 100 MG Tablet PO (08:06)
[2022-08-21] MEDS: Senna/Docusate Sodium 1 Tablet 2 TABLET PO ×2 (08:06→19:50)
[2022-08-21] MEDS: Aspirin 81 MG TAB.CHEW PO (08:06)
[2022-08-21] MEDS: Potassium Chloride Oral Tablet 10 MEQ PO (08:06)
[2022-08-21] MEDS: Pantoprazole Sodium 40 MG Tablet PO (08:06)
[2022-08-21 13:24] VITALS: BMI 34.0
[2022-08-21 19:30] VITALS: BP 118/60; PULSE 66; RESP 18; TEMP 36.6; O2SAT 94; BMI 34.0
[2022-08-21] MEDS: Atorvastatin Calcium 40 MG Tablet PO (19:51)
[2022-08-21] MEDS: Atenolol 25 MG Tablet PO (19:51)
[2022-08-21] MEDS: traZODone 50 MG Tablet PO (19:51)
[2022-08-21] MEDS: amLODIPine 2.5 MG Tablet 7.5 MG PO (19:51)
[2022-08-22 07:31] VITALS: TEMP 36.2
[2022-08-22] MEDS: Potassium Chloride Oral Tablet 10 MEQ PO (08:07)
[2022-08-22] MEDS: Aspirin 81 MG TAB.CHEW PO (08:07)
[2022-08-22] MEDS: Losartan Potassium 100 MG Tablet PO (08:07)
[2022-08-22] MEDS: Pantoprazole Sodium 40 MG Tablet PO (08:07)
[2022-08-22] MEDS: Senna/Docusate Sodium 1 Tablet 2 TABLET PO ×2 (08:07→20:16)
--- NOTE | 2022-08-22 09:34 | PCM.PN.BLA ---
Progress Note AF BP is well controlled and the Atenolol has not been held since the Atenolol dose was changed to 25 mg at HS only. BMP and MAG ordered for the AM. Continue therapy No changes to the drug regimen today.
[2022-08-22 09:55] VITALS: BMI 34.0
[2022-08-22 10:00] VITALS: BP 105/59; PULSE 66; RESP 18; O2SAT 99
[2022-08-22 20:10] VITALS: BP 111/52; PULSE 76; RESP 18; TEMP 37.1; O2SAT 96; BMI 34.0
[2022-08-22] MEDS: Atorvastatin Calcium 40 MG Tablet PO (20:17)
[2022-08-22] MEDS: traZODone 50 MG Tablet PO (20:17)
[2022-08-22] MEDS: amLODIPine 2.5 MG Tablet 7.5 MG PO (20:17)
[2022-08-22] MEDS: Atenolol 25 MG Tablet PO (20:18)
[2022-08-23 06:47] LABS: Anion Gap 7 (5-15); BUN 18 mg/dL (7-18); BUN/Creat Ratio 21.1 RATIO (10-20); Calcium,Total 9.3 mg/dL (8.5-10.1); Chloride 108 mmol/L (98-107); Creatinine, Serum 0.85 mg/dL (0.55-1.02); EST Glomerular Filtration Rate 69 mL/min (>60); Est Glom Filt Rate - Afr Amer 84 mL/min (>60); Estimated Creatinine Clearance 42.34 ml/min; Glucose 114 mg/dL (74-106); Magnesium 1.5 mg/dL (1.6-2.6); Potassium 3.9 mmol/L (3.5-5.1); Sodium Level 140 mmol/L (136-145)
[2022-08-23 07:13] VITALS: BP 111/72; PULSE 77; RESP 16; TEMP 36.6; O2SAT 94
[2022-08-23] MEDS: Pantoprazole Sodium 40 MG Tablet PO (10:11)
[2022-08-23] MEDS: Losartan Potassium 100 MG Tablet PO (10:11)
[2022-08-23] MEDS: Potassium Chloride Oral Tablet 10 MEQ PO (10:11)
[2022-08-23] MEDS: Aspirin 81 MG TAB.CHEW PO (10:11)
[2022-08-23] MEDS: Senna/Docusate Sodium 1 Tablet 2 TABLET PO ×2 (10:12→22:08)
--- NOTE | 2022-08-23 12:08 | PN_ITS ---
Subjective Subjective Sanaz was seen on team rounds today. Her daughter Leanne was present in the room and her son Jj participated by phone. All questions were answered. Afebrile VSS-blood pressure is well controlled and the heart rate is within normal limits. Maintaining appropriate oxygen saturation on RA Oral intake is good Discussed with nursing - no problems that need addressed Reviewed the PT/OT/ST notes - She has plateaued with PT/OT and they are not recommending any additional PT/OT as an OP. She is progressing with ST but, still needs assistance with managing finances and medications. She will need additional OP ST post DC. She lives with her mother so there will be someone else in the house. Medication list reviewed. BMP drawn this morning was personally reviewed. Sodium is 140 and the potassium is 3.9. BUN is 18 with a stable creatinine at 0.85. Fasting glucose is 114. Calcium is within normal limits. Magnesium is low at 1.5 today. Sanaz denies lightheadedness, vertigo, CP, SOB at rest, SOB with exertion, cough, nausea, vomiting, abd pain, diarrhea, constipation, dysuria, calf pain and ankle swelling. She is sleeping well on the Trazodone. Wants to go home. Therapists all feel she will be ready to DC at the end of the week and I am in agreement with this. Objective Data Objective Data Vital Signs: Vital Signs Temp Pulse Resp BP Pulse Ox O2 Del Method 97.8 F 77 16 111/72 94 Room Air 08/23/22 07:13 08/23/22 07:13 08/23/22 07:13 08/23/22 07:13 08/23/22 07:13 08/23/22 07:13 Oxygen Delivery Method Room Air Weight: 173 lb 4.533 oz Body Mass Index (BMI) 34.0 Intake & Output: Intake and Output for Last 24 Hours 08/21/22 08/22/22 08/23/22 23:59 23:59 23:59 Intake Total 1355 / 1355 835 / 835 120 / 120 Balance 1355 / 1355 835 / 835 120 / 120 Lab / Micro Data Result Diagrams: 08/13/22 05:38 08/23/22 05:32 Labs: Laboratory Results - last 24 hr 08/23/22 05:32: Sodium 140, Potassium 3.9, Chloride 108 H, Carbon Dioxide 25.0, Anion Gap 7, BUN 18, Creatinine 0.85, Estim Creat Clear Calc 42.34, Est GFR (MDRD) Af Amer 84, Est GFR (MDRD) Non-Af 69, BUN/Creatinine Ratio 21.1 H, Glucose 114 H, Calcium 9.3, Magnesium 1.5 L Physical Exam Const alert, oriented x3 and no apparent distress Constitutional Narrative: Speech is more fluid than it was at admission and she is not having trouble with word finding today. General Appearance: cooperative Orientation / Consciousness: Negative for confused HEENT moist oral mucous membranes Eyes PERRL and EOMs intact bilaterally Neck No nuchal rigidity, supple and No no carotid bruits General: trachea midline Lymph Lymphatic: no lymphadenopathy noted Resp clear to auscultation bilaterally Effort and Inspection: Negative for tachypneic, respiratory distress or labored Cardio regular rate, regular rhythm and no gallops Cardio Narrative: No ectopy today. sometimes hard to hear the heart sounds due to very loud bowel sounds. She has a very large sliding hiatal hernia containing much of the gastric fundus on an MRI done in July 2018. GI normal to inspection, nondistended, normoactive bowel sounds, soft to palpation and non-tender GI Narrative: No guarding with palpation Extremity no calf tenderness General Extremity: Negative for edema Skin No no wounds, No no jaundice and No no mottling General Skin Exam: no breakdown Rashes: no rashes Neuro CN's II-XII intact bilaterally, no focal motor deficits and no sensory deficits noted Neuro Narrative: Her only deficit at this time is mild aphasia with trouble word finding. 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 Continue therapy 2. Supplement magnesium and recheck towards the end of the week 3. 30-day event monitor at discharge 4. Jj asked if she could discontinue potassium and magnesium supplementation at discharge however I explained that she has left atrial e nlargement and this is a risk factor for atrial fibrillation. Would prefer to keep the magnesium around 2 and the potassium around 4 to help prevent atrial fibrillation. 5. Leanne wants to discuss potential DC date. We proposed Tuesday and Sanaz was in agreement but, Leanne has something to do that day and would like to see Sanaz stay until she is officially cut by insurance. In my opinion she is ready for DC and wants to go home Tuesday and this wiould allow us time to have everything in place prior to DC. 6. Recheck Mag and Potassium on Tuesday. Charges/Coding Visit Charges Inpatient E&M: 06216 Subs Hosp L2
--- NOTE | 2022-08-23 12:55 | CASEMGMT ---
Social Work IDT met with patient, dtr then son via conference call for Team meeting. Discussed patient's progress in PT/OT/ST/SN. Educated to [employer] insurance with NRD 08/27 and continued stay is not guaranteed with each review. Pt is progressing well, and IDT recommending setting DC date. Pt and family agreeable to DC 08/28. Pt will have supervision at home with higher level cognitive tasks and safety. IDT recommending outpatient ST. Pt/family agreeable to [facility]. No DME needs. Dtr to transport. Faxed referral to [facility] for ST. Plan: DC home with mother and supervision from dtr/son 08/28, [facility] CAITLIN Anderson
[2022-08-23] MEDS: Magnesium Chloride 64 MG Delay Rel.Tablet PO ×2 (14:51→22:07)
[2022-08-23 17:00] VITALS: BMI 34.0
[2022-08-23] MEDS: ALPRAZolam 0.25 MG Tablet PO (17:02)
[2022-08-23 19:36] VITALS: BP 131/77; PULSE 74; RESP 16; TEMP 36.6; O2SAT 97
[2022-08-23] MEDS: amLODIPine 2.5 MG Tablet 7.5 MG PO (22:07)
[2022-08-23] MEDS: Atorvastatin Calcium 40 MG Tablet PO (22:07)
[2022-08-23] MEDS: traZODone 50 MG Tablet PO (22:07)
[2022-08-23] MEDS: Atenolol 25 MG Tablet PO (22:10)
--- NOTE | 2022-08-24 03:54 | NURSING ---
Reviewed and agree with Alayna DALEY, documentation and assessment charting.
[2022-08-24 08:31] VITALS: BP 156/69; PULSE 69; RESP 15; TEMP 36.6; O2SAT 99
[2022-08-24] MEDS: Pantoprazole Sodium 40 MG Tablet PO (08:51)
[2022-08-24] MEDS: Potassium Chloride Oral Tablet 10 MEQ PO (08:51)
[2022-08-24] MEDS: Magnesium Chloride 64 MG Delay Rel.Tablet PO ×2 (08:51→20:16)
[2022-08-24] MEDS: Aspirin 81 MG TAB.CHEW PO (08:51)
[2022-08-24] MEDS: Senna/Docusate Sodium 1 Tablet 2 TABLET PO ×2 (08:52→20:17)
[2022-08-24] MEDS: Losartan Potassium 100 MG Tablet PO (08:53)
[2022-08-24 15:06] VITALS: BMI 34.0
[2022-08-24 19:50] VITALS: BP 119/80; PULSE 71; RESP 17; TEMP 36.8; O2SAT 96; BMI 34.0
[2022-08-24] MEDS: Atenolol 25 MG Tablet PO (20:16)
[2022-08-24] MEDS: traZODone 50 MG Tablet PO (20:17)
[2022-08-24] MEDS: amLODIPine 2.5 MG Tablet 7.5 MG PO (20:17)
[2022-08-24] MEDS: Atorvastatin Calcium 40 MG Tablet PO (20:17)
[2022-08-24] MEDS: Mag Hydrox/Al Hydrox/Simeth 30 ML UDC 15 ML PO (23:50)
[2022-08-25 06:00] VITALS: BMI 35.5
[2022-08-25] MEDS: Potassium Chloride Oral Tablet 10 MEQ PO (08:34)
[2022-08-25] MEDS: Magnesium Chloride 64 MG Delay Rel.Tablet PO ×2 (08:34→20:41)
[2022-08-25] MEDS: Losartan Potassium 100 MG Tablet PO (08:34)
[2022-08-25] MEDS: Pantoprazole Sodium 40 MG Tablet PO (08:35)
[2022-08-25] MEDS: Senna/Docusate Sodium 1 Tablet 2 TABLET PO (08:35)
[2022-08-25] MEDS: Aspirin 81 MG TAB.CHEW PO (08:35)
[2022-08-25 09:09] VITALS: BP 120/82; PULSE 80; RESP 16; TEMP 36.7; O2SAT 98
[2022-08-25 13:21] VITALS: BMI 35.5
--- NOTE | 2022-08-25 15:44 | CHAPLAIN ---
Type of Pastoral Visit ___ Initial Visit ___ Follow-up Visit ___ On-call Visit ___ General Patient Visit ___ Spiritual Assessment ___ Family Conference ___ Bereavement ___ Rapid Response ___ Code Blue ___ Other (describe below) Pastoral Care Referral From ___ Patient ___ Family ___ Nurse ___ Physician ___ Onboarding Specialist ___ Automobile Tester ___ Other (describe below) Sacrament/Intervention ___ Active listening ___ Anointing ___ Restorationist ___ Bereavement ___ Communion ___ Marilu exploration ___ ___ Life review ___ Prayer ___ Reconciliation ___ Sacrament of Sick ___ Supportive presence ___ Wedding ___ Other (describe below) Pastoral Comments patient is resting; follow up to offer support; pt gives updates and asks for prayer
[2022-08-25 20:30] VITALS: BP 138/72; PULSE 60; RESP 17; TEMP 36.3; O2SAT 97; BMI 35.5
[2022-08-25] MEDS: traZODone 50 MG Tablet PO (20:40)
[2022-08-25] MEDS: Atorvastatin Calcium 40 MG Tablet PO (20:40)
[2022-08-25] MEDS: Atenolol 25 MG Tablet PO (20:40)
[2022-08-25] MEDS: amLODIPine 2.5 MG Tablet 7.5 MG PO (20:41)
--- NOTE | 2022-08-25 22:46 | PCM.PROGNOTE ---
Subjective Subjective Afebrile VSS-blood pressure is controlled and the heart rate is within normal limits with no further episodes of SVT. Maintaining appropriate oxygen saturation on RA Oral intake is good Discussed with nursing - no problems that need addressed. She is sleeping well and has a good appetite. She is cooperative and pleasant. Reviewed the PT/OT/ST notes Medication list reviewed. Sanaz denies lightheadedness, vertigo, CP, SOB at rest, SOB with exertion, cough, nausea, vomiting, abd pain, diarrhea, constipation, dysuria, calf pain and ankle swelling. She is still at odds with Leanne, her dtr, at times. Sanaz has decided to follow up in [place] rather than go to [facility] for follow up care. Appts have been made with Dr. Suarez and Dr. Lan. Will order a 30 day event monitor at the time of DC. She has had no further episodes of racing heart since she was restarted on Atenolol. Objective Data Objective Data Vital Signs: Vital Signs Temp Pulse Resp BP Pulse Ox O2 Del Method 97.4 F L 60 17 138/72 H 97 Room Air 08/25/22 20:30 08/25/22 20:30 08/25/22 20:30 08/25/22 20:30 08/25/22 20:30 08/25/22 20:30 Oxygen Delivery Method Room Air Weight: 180 lb 15.992 oz Body Mass Index (BMI) 35.5 Intake & Output: Intake and Output for Last 24 Hours 08/23/22 08/24/22 08/25/22 23:59 23:59 23:59 Intake Total 1270 / 1270 1360 / 1360 1120 / 1120 Output Total 950 / 950 700 / 700 Balance 320 / 320 660 / 660 1120 / 1120 Lab / Micro Data Result Diagrams: 08/13/22 05:38 08/23/22 05:32 Physical Exam Const alert, oriented x3 and no apparent distress General Appearance: cooperative Resp clear to auscultation bilaterally Cardio regular rate, regular rhythm and no gallops GI normal to inspection, nondistended, normoactive bowel sounds, soft to palpation and non-tender Extremity no calf tenderness General Extremity: Negative for edema Skin General Skin Exam: no breakdown Rashes: no rashes Neuro Neuro Narrative: Speech is fluid. No facial droop. No focal weakness. 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 Continue therapy 2. Plan discharge home for Tuesday. 3. BMP, H&H and magnesium ordered for the a.m. Charges/Coding Visit Charges Inpatient E&M: 69003 Subs Hosp L2
--- NOTE | 2022-08-26 02:27 | NURSING ---
REVIEWED AND AGREE WITH Diana DALEY, DOCUMENTATION AND ASSESSMENT CHARTING.
[2022-08-26] MEDS: Losartan Potassium 100 MG Tablet PO (07:51)
[2022-08-26] MEDS: Potassium Chloride Oral Tablet 10 MEQ PO (07:51)
[2022-08-26] MEDS: Magnesium Chloride 64 MG Delay Rel.Tablet PO (07:51)
[2022-08-26] MEDS: Pantoprazole Sodium 40 MG Tablet PO (07:51)
[2022-08-26] MEDS: Aspirin 81 MG TAB.CHEW PO (07:51)
[2022-08-26 07:57] VITALS: BP 118/61; PULSE 70; RESP 16; TEMP 36.5; O2SAT 96
[2022-08-26 10:50] VITALS: BMI 35.5
[2022-08-26 19:13] VITALS: BP 127/67; PULSE 76; RESP 16; TEMP 37; O2SAT 97
[2022-08-26 20:30] VITALS: BMI 35.5
[2022-08-26] MEDS: traZODone 50 MG Tablet PO (21:06)
[2022-08-26] MEDS: Atorvastatin Calcium 40 MG Tablet PO (21:06)
[2022-08-26] MEDS: amLODIPine 2.5 MG Tablet 7.5 MG PO (21:07)
[2022-08-26] MEDS: Atenolol 25 MG Tablet PO (21:07)
[2022-08-27 05:55] LABS: Hematocrit 34.6 % (37-47)
[2022-08-27 06:34] LABS: Anion Gap 5 (5-15); BUN 16 mg/dL (7-18); BUN/Creat Ratio 18.4 RATIO (10-20); Calcium,Total 9.1 mg/dL (8.5-10.1); Chloride 110 mmol/L (98-107); Creatinine, Serum 0.87 mg/dL (0.55-1.02); EST Glomerular Filtration Rate 68 mL/min (>60); Est Glom Filt Rate - Afr Amer 82 mL/min (>60); Estimated Creatinine Clearance 41.37 ml/min; Glucose 115 mg/dL (74-106); Potassium 3.8 mmol/L (3.5-5.1); Sodium Level 140 mmol/L (136-145)
[2022-08-27 07:37] VITALS: BP 127/70; PULSE 70; RESP 16; TEMP 36.8; O2SAT 95
[2022-08-27] MEDS: Losartan Potassium 100 MG Tablet PO (09:20)
[2022-08-27] MEDS: Pantoprazole Sodium 40 MG Tablet PO (09:20)
[2022-08-27] MEDS: Potassium Chloride Oral Tablet 10 MEQ PO (09:20)
[2022-08-27] MEDS: Aspirin 81 MG TAB.CHEW PO (09:20)
[2022-08-27] MEDS: Senna/Docusate Sodium 1 Tablet 2 TABLET PO ×2 (09:21→20:23)
[2022-08-27] MEDS: Magnesium Chloride 64 MG Delay Rel.Tablet PO (09:21)
--- NOTE | 2022-08-27 09:36 | DCINST_ITS ---
Discharge Instructions Diet Discharge Diet: - (Low fat, Low salt. Try and lose some weight......I know, easier said than done. I think if you exercise regularly and cut back a bit on calories you will lose weight. Exercise has been shown to preserve brain function in addition to being good for you heart, your BP and your physical well being. ) Activity Discharge Activity: May Not Drive, May Shower and - (use walker or cane for longer distances and unlevel services if needed.) Weight Bearing Status: Full weight bearing Lifting Restrictions: No more than 10 lbs for the next 1 month. Keep extremity elevated above heart level: Legs Additional Activity Instructions:: No bending over for the next month. Bending over and lifting increase the pressure in the skull and with the recent bleed we do not want to do this. No driving until you attend the driving program in [place] to make sure that you AND the other drivers on the road are safe. Dressing / Incision Call your doctor if you observe: Fever of 101 or Higher, Inability to urinate, Shortness of breath, Dizziness, Fainting spells, Swelling in the ankles, Chest pain, Increased palpitations (irregular heartbeat), Calf discomfort, Uncontrolled pain and - (STROKE symptoms: facial droop, slurred speech, inability to get words out, weakness on 1 side of the body and not the other, numbness on 1 side of the body and not the other, inability to maintain your balance sitting or standing, vertigo. ) Follow Up Care Please Follow Up With: Velasquez Lynn MD When: 08/31/[address] Suarez on 10/06/[address] Lan (neurology). 12/13/22 at 10 AM. Test Results: Test results from this visit will be discussed in further detail at your follow- up appointment, if applicable. Pending Tests Upon Discharge: none Discharge Plan Admission Admit Date/Time: 08/12/22 14:24 Primary Reason for Your Visit: Post stroke debility Attending Provider: Aisha Horta Primary Care Provider: Velasquez Lynn Consulting Providers: Adin Suarez Instructions Patient Instructions: Hemorrhagic Stroke ..., What Is a TIA?, 5 Steps for Eating Healthier, Angiography Risks Complications, Discharge Instructions for Stroke, Stroke Stop Another Health Tips, AFib Additional Instructions / Restrictions: 1. You had a hemorrhagic stroke. This means that you had bleeding from a blood vessel in your head. You had an MRI that showed an aneurysm. You then had an angiogram to confirm an aneurysm. This is when the doctor inserts a catheter in your groin and injects dye so the arteries in your head and neck can be visualized. The angiogram did NOT show an aneurysm. You had a second angiogram and it too showed no aneurysm. Angiograms are not risk free. I have given you some literature to read that lists the potential risks/complications of an angiogram. Sometimes we can not find the source of the bleeding and sometimes we can. At this time we do not know what caused the bleeding. We need to focus on how to prevent another stroke. 2. To prevent another stroke there are certain goals we must keep in mind. Your BP should be less than 130/80. The bad cholesterol also known as LDL should be 70 or less. If you are diabetic the HGBA1C must be 7 or less. You are not diabetic. your HGBA1C is 5.4. Try and lose some weight to prevent diabetes going forward. 3. You BP is well controlled. 4. You are taking a medication called atorvastatin to control cholesterol. You were on Atorvastatin 40 mg when you had the stroke and the dose has not changed. Your LDL was 86......this is not at goal. Dr. Lynn should recheck the cholesterol in a few weeks to make sure the LDL is less than or equal to 70.......you are being discharged on a low fat diet. If the LDL is still > 70 when checked in the next few weeks discuss this with Dr. Lynn and ask if the medication should be increased to get the LDL at 70 or less. The HDL (good cholesterol) was 47 and the goal for women is to have the HDL be 45 or greater. HDL protects the heart. Exercise increases HDL so do the exercises given to you by the therapists at least 6 days a week. 5. You are not on a diuretic. Diuretics cause the kidney to excrete potassium and often the potassium in the blood will be low. Your potassium is low. It is low despite your taking Cozaar (Losartan) for the BP and Cozaar generally helps the kidney to retain potassium. You must have excess excretion of potassium in the urine. Currently I have you on 10 MEQ fo potassium daily but, the potassium is 3.8 today and although this is within normal limits I would like to see the potassium be 4 or greater. The reason for this is the left upper chamber of your heart (called the left atrium) is dilated. The dilation can stretch the electrical conducting fibers in the heart and can cause atrial fibrillation. To help prevent atrial fibrillation we like to see the Potassium be at least 4 and the magnesium be around 2. You are on a magnesium supplement and at the time of discharge the magnesium level is 2. I am going to increase the potassium to 20 MEQ's a day. 6. Sometimes it is hard to detect whether a patient has had Atrial fibrillation (AF) or not. It can come and go. You are going to get a 30 day event monitor sent to you in the mail and after it comes off you will have an APPT with Dr. Suarez to discuss the results. 7. It has been a pleasure having you on rehab and getting to know you. Your speech and thought processing is much better and I suspect will continue to improve with more speech therapy as an outpatient. IF you or your family have any questions after you leave rehab please do not hesitate to call me. I will be seding a copy of your discharge summary to Dr. Lynn, Dr. Suarez and Dr. Lan. OFFICE: [phone] CELL: [phone] PS: I gave you a lab requisition to have a potassium and magnesium checked in 1 week. You can call me for the results or you can call Dr. Lynn. Discharge Orders/Prescriptions Prescriptions: New atenolol 25 mg Tablet 25 mg PO QHS Qty: 30 0RF amlodipine 2.5 mg Tablet 7.5 mg PO QHS Qty: 90 0RF Rx Instructions: Take 3 tabs daily at bedtime. losartan 100 mg Tablet 100 mg PO DAILY Qty: 30 0RF magnesium chloride 64 mg magnesium tablet 64 mg PO DAILY Qty: 30 0RF potassium chloride 20 mEq tablet extended release 20 meq PO BREAKFAST Qty: 30 0RF trazodone 50 mg Tablet 50 mg PO QHS Qty: 30 0RF Rx Instructions: for insomnia Continued omeprazole 40 mg capsule,delayed release(DR/EC) 40 mg PO DAILY PRN (Reason: GERD) fluticasone propionate 50 mcg/actuation spray,suspension 2 spray INTRANASAL DAILY PRN (Reason: Allergies) Rx Instructions: administer into each nostril calcium carbonate-vit D3-min 600 mg calcium- 400 unit tablet 1 tab PO BID fexofenadine 180 mg tablet 180 mg PO DAILY PRN (Reason: allergies') aspirin 81 mg Tablet,Chewable 81 mg PO DAILY Qty: 30 0RF Rx Instructions: Take this medication with food. Changed atorvastatin 40 mg tablet 40 mg PO QHS Qty: 30 0RF Rx Instructions: take this medication at bedtime Discontinued atenolol 50 mg tablet 50 mg PO DAILY amlodipine 5 mg tablet 10 mg PO QHS losartan 25 mg tablet 100 mg PO DAILY levetiracetam 1,000 mg Tablet 1,000 mg PO BID Other Ambulatory Orders: Basic Metabolic Profile (BMP) (Routine) Timeframe: 1 Week Facility: [facility] - Location: Laboratory Ordered By: Dr. Aisha Horta Magnesium (Routine) Timeframe: 1 Week Facility: [facility] - Location: Laboratory Ordered By: Dr. Aisha Horta Referrals / Follow Up: Adin Suarez MD [Med Staff - Active Staff] - 10/06/22 1:00 pm Velasquez Lynn MD [Primary Care Provider] - 08/31/22 3:00 pm Jackson Lan MD [Non-Staff -Ordering Privileges] - 12/13/22 10:00 am Disposition Disposition (needs filled in before D/C Order can be placed): Home, Self Care
[2022-08-27 10:12] VITALS: BMI 35.5
[2022-08-27 10:17] LABS: Hemoglobin A1c 5.4 % (3.8-5.6)
--- NOTE | 2022-08-27 12:41 | DS.PCM_ITS ---
Providers Date of Admission: 08/12/22 Date of Discharge: 08/28/22 Primary Care Physician: MD Dr. Adin Mccurdy Reason For Visit: CVA Diagnosis Discharge Diagnosis (1) Debility: Status: Acute Code(s): R53.81 - Other malaise (2) Hemorrhagic cerebrovascular accident (CVA): Status: Acute Code(s): I61.9 - Nontraumatic intracerebral hemorrhage, unspecified Plan: Subarachnoid hemorrhage (3) Aphasia as late effect of cerebrovascular accident: Status: Acute Code(s): I69.320 - Aphasia following cerebral infarction (4) Left atrial enlargement: Status: Chronic Code(s): I51.7 - Cardiomegaly (5) Insomnia: Status: Resolved Code(s): G47.00 - Insomnia, unspecified Plan: Did not want Trazodone to go home with. She thinks she will sleep fine at home. (6) Anxiety: Status: Acute Code(s): F41.9 - Anxiety disorder, unspecified (7) Hypokalemia: Status: Resolved Code(s): E87.6 - Hypokalemia (8) Hypomagnesemia: Status: Resolved Code(s): E83.42 - Hypomagnesemia (9) Tachycardia: Status: Resolved Code(s): R00.0 - Tachycardia, unspecified Plan: Had SVT while on rehab.....no recurrence after the Atenolol was restarted. (10) Dyslipidemia: Status: Inactive Code(s): E78.5 - Hyperlipidemia, unspecified Plan: Continue atorvastatin 40 mg p.o. nightly. Recheck a lipid panel in approxima tely 1 month and if the LDL is still greater than 70 would consider increasing the dose. (11) Hypertension: Status: Inactive Code(s): I10 - Essential (primary) hypertension Plan: Within goal at discharge. We will continue atenolol, amlodipine and Cozaar. (12) Osteopenia after menopause: Status: Inactive Code(s): M85.80 - Other specified disorders of bone density and structure, unspecified site; Z78.0 - Asymptomatic menopausal state Plan: It will be 2 years in October since her last bone mineral density. (13) Allergic rhinitis: Status: Inactive Code(s): J30.9 - Allergic rhinitis, unspecified Plan: Would prefer she use a nasal steroid and/or Atrovent nasal spray rather than for an oral antihistamine for treatment of allergic rhinitis since she has cognitive dysfunction and antihistamines in the eldrerly can cause Drowsiness/confusion a nd are associated with increased falls. (14) Hiatal hernia with GERD: Status: Inactive Code(s): K44.9 - Diaphragmatic hernia without obstruction or gangrene; K21.9 - Gastro- esophageal reflux disease without esophagitis Plan 1. Discharge home on 08/28/2022 with outpatient speech therapy at [facility]. 2. Prescriptions were faxed to [facility] on [address]. 3. Follow-up appointments were made with Dr. Kirkpatrick, Dr. Suarez in Dr. Lan. 4. A lab slip was given to obtain a BMP and a magnesium level in 1 week. Patient was instructed to call me or Dr. Kirkpatrick for the results. 5. No driving until she attends the driving course in [place] to determine if she is safe to drive. Medications at Discharge Home Medications calcium carb-vit D3-minerals 600 mg calcium-400 unit tablet 1 tab PO BID fexofenadine 180 mg tablet 180 mg PO DAILY PRN allergies' 12/24/19 fluticasone propionate 50 mcg/actuation nasal spray,suspension 2 spray intranasal DAILY PRN Allergies 12/24/19 omeprazole 40 mg capsule,delayed release 40 mg PO DAILY PRN GERD 12/24/19 amlodipine 2.5 mg tablet 7.5 mg PO QHS #90 tabs 08/27/22 aspirin 81 mg chewable tablet 81 mg PO DAILY Heart health #30 tabs 08/27/22 atenolol 25 mg tablet 25 mg PO QHS #30 tabs 08/27/22 atorvastatin 40 mg tablet 40 mg PO QHS Cholestrol #30 tabs 08/27/22 losartan 100 mg tablet 100 mg PO DAILY #30 tabs 08/27/22 magnesium chloride 64 mg (magnesium chloride) tablet 64 mg PO DAILY #30 tabs 08/27/22 potassium chloride 20 mEq tablet,extended release 20 meq PO BREAKFAST #30 tabs 08/27/22 trazodone 50 mg tablet 50 mg PO QHS #30 tabs 08/27/22 Hospital Course Operations None Procedures None and 2-D Echocardiogram (She had a GEMMA at [facility] and it showed normal left ventricular size and function with an estimated ejection fraction of 60 to 65%, normal right ventricle in size and function, left atrial enlargement and no thrombus visualized in the left atrium left atrial appendage or right atrium.) Summary of Care Provided Minutes Spent on Discharge: 45 Hospital Course: Filemon ANDERSON, is a 72 YO F with a past medical history of hypertension, GERD, moderate to severe osteopenia, hyperlipidemia and colon polyps who presented to the emergency department at [facility] on 08/02/2022 with complaints of right facial numbness, R side paresthesias and loss of coordination of her right hand.? After arriving in the emergency department her symptoms began to katharine. The NIH score in the ED was 0.? Stat noncontrast CT brain showed a focal gyral hemorrhage overlying the posterior gyri of the left parietal lobe.? She was not taking aspirin or an anticoagulant at the time of the bleed.? Chest x-ray showed a large hiatal hernia but the lungs were clear.? The ER physician discussed the case with [facility] neurosurgery and the patient was transferred to [facility] emergency department by helicopter. ?? ? NIH upon arrival at [facility] was 0.? Repeat CT brain showed a small left subarachnoid hemorrhage within the parietal and temporal sulci.? There was no significant mass effect and no midline shift.? CTA of the head and neck showed no evidence of proximal vascular occlusion, aneurysm or vascular malformation.? A diagnostic cerebral angiogram was normal with no vascular etiology to explain spontaneous subarachnoid hemorrhage.? GEMMA done at [facility] showed a normal left ventricular size and function with an estimated ejection fraction of 60 to 65%.? Right ventricle was normal in size and function.? There was left atrial enlargement present.? There was no thrombus visualized in the left atrium, left atrial appendage or right atrium.? There was no significant valvular heart disease.? There was no evidence of an atrial level shunt on the bubble contrast study.? 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 There were acute left parietal infarcts secondary to dissecting/clotted aneurysm. She had a second cerebral angiogram at [facility] and it too was negative for aneurysm or AVM's. While at [facility] she was diagnosed with aphasia.? After being seen by PT/OT/ST a recommendation was made for acute inpt rehab and Sanaz was transferred to [facility] inpt acute rehab on 08/12/22 for 3 hours of therapy daily to restore function at or near her level prior to the stroke.? Upon arrival at rehab her potassium was found to be low at 3.3. Is also low when she was started on magnesium and potassium supplements. She was ordered to have a 30-day event monitor at discharge and to follow up with cardiology. She has LAE and is at risk for AF so I would like to the potassium to remain around 4 and the mag around 2. At the time of discharge the potassium was 3.8 and the potassium supplement was increased to 20 mEq daily. The magnesium was 2 and she was given a prescription for a magnesium supplement to continue as an outpatient. She was given a Lab slip to obtain a BMP and a MAG in 1 week after DC. These tests were reviewed and the potassium was 4 with a magnesium of 2. The BUN was 12 with a stable creatinine at 0.98. Sanaz had been taking Atenolol since the . she had been placed on this medication by Dr. Suarez for SVT. Atenolol was discontinued at [facility]. Shortly after arriving on rehab Sanaz had SVT with a HR in the 140's and she wa s symptomatic. Atenolol was restarted and a consult was obtained with Dr. Suarez and he agreed with restarting Atenolol and will follow up with her as an OP. Sanaz did very well in therapy and at the time of DC she was supervision/set up for eating, grooming lower body dressing, toileting, toilet transfer and bathing. She was independent with upper body dressing. She was able to do 14 sit to stands in 30 seconds without using her upper extremities for 12 of the 14. She completed the a cognitive TUG in 8.83 seconds with no assistive device which is phenomenal. She was able to ascend/descend 20 stairs with 1 handrail at supervision. She was able to ambulate 800 feet without an assistive device at supervision level off the unit, on various surfaces, and busy halls while following directions and using wall signs with no LOB. Sanaz told me that she would prefer to follow up in [place] rather than going back to [place] for neurology and cardiology follow up. A 30 day event monitor was ordered at [facility] and at the conclusion of this she will follow up with Dr. Suarez who she has been seeing since the . Follow up appts were made for her with Dr. Suarez and with Dr. Lan from neurology. She will also follow up with Dr. Lynn post [facility]. Sanaz was discharged home on 08/27/22. She will have supervision at home for med management and higher level cognitive activities like check writing, balancing the check book and taking care of Finances. Her daughter Catie is very supportive. She will continue ST as am OP at [facility]. She had no DME needs at [facility]. Physical Exam Const alert, oriented x3, no apparent distress and well nourished Constitutional Narrative: Speech is more fluid than it was at admission and she is not having trouble with word finding today. General Appearance: cooperative and well developed Orientation / Consciousness: Negative for confused HEENT normocephalic, head/scalp atraumatic and moist oral mucous membranes Eyes PERRL and EOMs intact bilaterally Neck No nuchal rigidity, supple and No no carotid bruits General: trachea midline Lymph Lymphatic: no lymphadenopathy noted Resp normal respiratory effort, normal air movement and clear to auscultation bilaterally Effort and Inspection: Negative for tachypneic or labored Cardio regular rate, regular rhythm, S1 normal heart sound, S2 normal heart sound, no murmurs, no rub and no gallops GI normal to inspection, nondistended, normoactive bowel sounds, soft to palpation and non-tender GI Narrative: No guarding with palpation Extremity no calf tenderness General Extremity: Negative for clubbing, cyanosis or edema Skin No no wounds, No no jaundice and No no mottling General Skin Exam: no breakdown Rashes: no rashes Neuro CN's II-XII intact bilaterally, no focal motor deficits and no sensory deficits noted Neuro Narrative: Speech is fluid. No facial droop. No focal weakness. Coordination / Balance: wgifjf-[id number] test normal and hdis-jd-[id number] test normal Speech: speech normal Gait (Neuro): normal gait Psych thought process normal, cooperative, affect normal, denies homicidal ideation and denies suicidal ideation Appearance: appropriate Attitude: No agitated Activity / Motor Behavior: Negative for restless Weight / BMI Weight Weight: 180 lb 15.992 oz Body Mass Index (BMI) 35.5 ABG / Lab / Microbiology Data Result Diagrams: 08/27/22 05:47 08/27/22 05:47 Laboratory: Laboratory Results - last 24 hr 08/27/22 05:47: Hgb 12.0, Hct 34.6 L 08/27/22 05:47: Sodium 140, Potassium 3.8, Chloride 110 H, Carbon Dioxide 25.0, Anion Gap 5, BUN 16, Creatinine 0.87, Estim Creat Clear Calc 41.37, Est GFR (MDRD) Af Amer 82, Est GFR (MDRD) Non-Af 68, BUN/Creatinine Ratio 18.4, Glucose 115 H, Calcium 9.1, Magnesium 2.0 08/27/22 05:47: Hemoglobin A1c 5.4 Indicators for Scoring Admitted with or Primary Diagnosis of CVA/Stroke: Yes Hx of CVA/Stroke: Yes Modified Forsyth Score MRS Score at time of Evaluation: 2-Slight disability NIHSS NIHSS 1b. LOC Questions: Answers BOTH questions correctly. 1c. LOC Commands: Performs both tasks correctly. 2. Best Gaze: Normal 3. Visual: No visual loss 4. Facial Palsy: Normal symmetrical movements 5a. Left Arm: No drift; arm holds 90 (or 45) degrees for full 10 seconds 5b. Right Arm: No drift; arm holds 90 (or 45) degrees for full 10 seconds 6a. Left Leg: No drift; leg holds 30-degree position for full 5 seconds 6b. Right Leg: No drift; leg holds 30-degree position for full 5 seconds 7. Limb Ataxia: Absent 8. Sensory: Normal; no sensory loss 9. Best Language: Hxon-cs-gufndemv aphasia; 10. Dysarthria: Normal 11. Extinction and Inattention: No abnormality Total: 1 Stroke Questions Stroke Team Activated: No D/C Instructions Discharge Diet: - (Low fat, Low salt. Try and lose some weight......I know, easier said than done. I think if you exercise regularly and cut back a bit on calories you will lose weight. Exercise has been shown to preserve brain fu nction in addition to being good for you heart, your BP and your physical well being. ) Weight Bearing Status: Full weight bearing Keep extremity elevated above heart level: Legs Additional Activity Instructions: No bending over for the next month. Bending over and lifting increase the pressure in the skull and with the recent bleed we do not want to do this. No driving until you attend the driving program in [place] to make sure that you AND the other drivers on the road are safe. Call your doctor if you observe: Fever of 101 or Higher, Inability to urinate, Shortness of breath, Dizziness, Fainting spells, Swelling in the ankles, Chest pain, Increased palpitations (irregular heartbeat), Calf discomfort, Uncontrolled pain and - (STROKE symptoms: facial droop, slurred speech, inability to get words out, weakness on 1 side of the body and not the other, numbness on 1 side of the body and not the other, inability to maintain your balance sitting or standing, vertigo. ) Pending Tests Upon Discharge: none Please Follow Up With: Velasquez Lynn MD When: 08/31/[address] Suarez on 10/06/[address] Lan (neurology). 12/13/22 at 10 AM. Meaningful Use Info Meaningful Use Diagnoses (Choose all that apply): Hemorrhagic CVA CVA Therapy Assessed for PT,OT and/or ST?: Yes Discharge Plan Admission Admit Date/Time: 08/12/22 14:24 Primary Reason for Your Visit: Post stroke debility Attending Provider: Aisha Horta Primary Care Provider: Velasquez Lynn Consulting Providers: Adin Suarez Instructions Patient Instructions: Hemorrhagic Stroke ..., What Is a TIA?, 5 Steps for Eating Healthier, Angiography Risks Complications, Discharge Instructions for Stroke, Stroke Stop Another Health Tips, AFib Additional Instructions / Restrictions: 1. You had a hemorrhagic stroke. This means that you had bleeding from a blood vessel in your head. You had an MRI that showed an aneurysm. You then had an angiogram to confirm an aneurysm. This is when the doctor inserts a catheter in your groin and injects dye so the arteries in your head and neck can be visualized. The angiogram did NOT show an aneurysm. You had a second angiogram and it too showed no aneurysm. Angiograms are not risk free. I have given you some literature to read that lists the potential risks/complications of an angiogram. Sometimes we can not find the source of the bleeding and sometimes we can. At this time we do not know what caused the bleeding. We need to focus on how to prevent another stroke. 2. To prevent another stroke there are certain goals we must keep in mind. Your BP should be less than 130/80. The bad cholesterol also known as LDL should be 70 or less. If you are diabetic the HGBA1C must be 7 or less. You are not diabetic. your HGBA1C is 5.4. Try and lose some weight to prevent diabetes going forward. 3. You BP is well controlled. 4. You are taking a medication called atorvastatin to control cholesterol. You were on Atorvastatin 40 mg when you had the stroke and the dose has not changed. Your LDL was 86......this is not at goal. Dr. Lynn should recheck the cholesterol in a few weeks to make sure the LDL is less than or equal to 70.......you are being discharged on a low fat diet. If the LDL is still > 70 when checked in the next few weeks discuss this with Dr. Lynn and ask if the medication should be increased to get the LDL at 70 or less. The HDL (good cholesterol) was 47 and the goal for women is to have the HDL be 45 or greater. HDL protects the heart. Exercise increases HDL so do the exercises given to you by the therapists at least 6 days a week. 5. You are not on a diuretic. Diuretics cause the kidney to excrete potassium and often the potassium in the blood will be low. Your potassium is low. It is low despite your taking Cozaar (Losartan) for the BP and Cozaar generally helps the kidney to retain potassium. You must have excess excretion of potassium in the urine. Currently I have you on 10 MEQ fo potassium daily but, the potassium is 3.8 today and although this is within normal limits I would like to see the potassium be 4 or greater. The reason for this is the left upper chamber of your heart (called the left atrium) is dilated. The dilation can stretch the electrical conducting fibers in the heart and can cause atrial fibrillation. To help prevent atrial fibrillation we like to see the Potassium be at least 4 and the magnesium be around 2. You are on a magnesium supplement and at the time of discharge the magnesium level is 2. I am going to increase the potassium to 20 MEQ's a day. 6. Sometimes it is hard to detect whether a patient has had Atrial fibrillation (AF) or not. It can come and go. You are going to get a 30 day event monitor sent to you in the mail and after it comes off you will have an APPT with Dr. Suarez to discuss the results. 7. It has been a pleasure having you on rehab and getting to know you. Your speech and thought processing is much better and I suspect will continue to improve with more speech therapy as an outpatient. IF you or your family have any questions after you leave rehab please do not hesitate to call me. I will be seding a copy of your discharge summary to Dr. Lynn, Dr. Suarez and Dr. Lan. OFFICE: [phone] CELL: [phone] PS: I gave you a lab requisition to have a potassium and magnesium checked in 1 week. You can call me for the results or you can call Dr. Lynn. Discharge Orders/Prescriptions Prescriptions: New atenolol 25 mg Tablet 25 mg PO QHS Qty: 30 0RF amlodipine 2.5 mg Tablet 7.5 mg PO QHS Qty: 90 0RF Rx Instructions: Take 3 tabs daily at bedtime. losartan 100 mg Tablet 100 mg PO DAILY Qty: 30 0RF magnesium chloride 64 mg magnesium tablet 64 mg PO DAILY Qty: 30 0RF potassium chloride 20 mEq tablet extended release 20 meq PO BREAKFAST Qty: 30 0RF trazodone 50 mg Tablet 50 mg PO QHS Qty: 30 0RF Rx Instructions: for insomnia Continued omeprazole 40 mg capsule,delayed release(DR/EC) 40 mg PO DAILY PRN (Reason: GERD) fluticasone propionate 50 mcg/actuation spray,suspension 2 spray INTRANASAL DAILY PRN (Reason: Allergies) Rx Instructions: administer into each nostril calcium carbonate-vit D3-min 600 mg calcium- 400 unit tablet 1 tab PO BID fexofenadine 180 mg tablet 180 mg PO DAILY PRN (Reason: allergies') aspirin 81 mg Tablet,Chewable 81 mg PO DAILY Qty: 30 0RF Rx Instructions: Take this medication with food. Changed atorvastatin 40 mg tablet 40 mg PO QHS Qty: 30 0RF Rx Instructions: take this medication at bedtime Discontinued atenolol 50 mg tablet 50 mg PO DAILY amlodipine 5 mg tablet 10 mg PO QHS losartan 25 mg tablet 100 mg PO DAILY levetiracetam 1,000 mg Tablet 1,000 mg PO BID Referrals / Follow Up: Erick,[place], MD [Med Staff - Active Staff] - 10/06/22 1:00 pm Velasquez Lynn MD [Primary Care Provider] - 08/31/22 3:00 pm Jackson Lan MD [Non-Staff -Ordering Privileges] - 12/13/22 10:00 am Disposition Disposition (needs filled in before D/C Order can be placed): Home, Self Care Charges/Coding Visit Charges Inpatient E&M: 08010 Disch Hosp >30min
[2022-08-27 19:30] VITALS: BP 115/68; PULSE 68; RESP 18; TEMP 36.8; O2SAT 98
[2022-08-27] MEDS: Atenolol 25 MG Tablet PO (20:23)
[2022-08-27] MEDS: amLODIPine 2.5 MG Tablet 7.5 MG PO (20:23)
[2022-08-27] MEDS: Atorvastatin Calcium 40 MG Tablet PO (20:23)
[2022-08-27] MEDS: traZODone 50 MG Tablet PO (20:23)
[2022-08-28 08:03] VITALS: BP 126/66; PULSE 64; RESP 14; TEMP 36.8; O2SAT 97
[2022-08-28] MEDS: Potassium Chloride Oral Tablet 10 MEQ PO (08:44)
[2022-08-28] MEDS: Losartan Potassium 100 MG Tablet PO (08:44)
[2022-08-28] MEDS: Pantoprazole Sodium 40 MG Tablet PO (08:44)
[2022-08-28] MEDS: Aspirin 81 MG TAB.CHEW PO (08:44)
[2022-08-28] MEDS: Magnesium Chloride 64 MG Delay Rel.Tablet PO (08:45)
--- NOTE | 2022-08-28 10:03 | NURSING ---
Discharge instructions provided to daughter and patient and verbalized understanding.
[2022-08-28 12:00] VITALS: BP 126/66; PULSE 66; RESP 14; TEMP 36.8; O2SAT 97; BMI 35.5
== END 2022-08-28 12:00 | disposition home or self-care (01) | DRG 57 ==
PROVIDERS: Admitting Provider Internal Medicine; PCP Family Medicine; Visit Provider Internal Medicine
DX: I69.351 Hemiplegia and hemiparesis following cerebral infarction affecting right dominant side (principal); I47.1 Supraventricular tachycardia; I48.91 Unspecified atrial fibrillation; E87.6 Hypokalemia; I10 Essential (primary) hypertension; K21.9 Gastro-esophageal reflux disease without esophagitis; K44.9 Diaphragmatic hernia without obstruction or gangrene; E83.42 Hypomagnesemia; I69.320 Aphasia following cerebral infarction; E78.5 Hyperlipidemia, unspecified; I69.392 Facial weakness following cerebral infarction; I69.398 Other sequelae of cerebral infarction; M85.80 Other specified disorders of bone density and structure, unspecified site; G47.00 Insomnia, unspecified; Z79.899 Other long term (current) drug therapy; Z79.82 Long term (current) use of aspirin
CPT/HCPCS: 36415; 80048; 80053; 83036; 83735; 84100; 84132; 85014; 85018; 85025; 92507; 92523; 93005; 94668; 97110; 97112; 97116; 97129; 97130; 97162; 97166; 97530; 97535; 97802; 97803; 99252; A4216; G0463

== ENCOUNTER → 2022-09-03 | Outpatient (CLI) | payer MEDICARE, SELFPAY ==
[2022-09-03 17:04] LABS: Anion Gap 6 (5-15); BUN 12 mg/dL (7-18); BUN/Creat Ratio 12.3 RATIO (10-20); Calcium,Total 9.6 mg/dL (8.5-10.1); Chloride 106 mmol/L (98-107); Creatinine, Serum 0.98 mg/dL (0.55-1.02); EST Glomerular Filtration Rate 59 mL/min (>60); Est Glom Filt Rate - Afr Amer 72 mL/min (>60); Glucose 100 mg/dL (74-106); Sodium Level 138 mmol/L (136-145)
== END | disposition home or self-care (01) ==
LOC: MFPLAB 13:56
PROVIDERS: PCP Family Medicine; Visit Provider Internal Medicine
DX: E87.6 Hypokalemia (principal); E83.42 Hypomagnesemia
CPT/HCPCS: 36415; 80048; 83735

== ENCOUNTER → 2022-09-09 | Outpatient (CLI) | payer MEDICARE, SELFPAY | END | disposition home or self-care (01) | PROVIDERS: PCP Family Medicine; Referring Provider Family Medicine; Visit Provider Family Medicine | DX: N39.0 Urinary tract infection, site not specified (principal) | CPT/HCPCS: 87086; 87088 ==

== ENCOUNTER → 2022-09-15 | Outpatient (CLI) | payer MEDICARE, SELFPAY ==
[2022-09-15 15:22] LABS: Bacteria 0 SEEN /hpf (None Seen); Mucous, Urine 0 SEEN /hpf (<or=2+); Red Blood Cells-Urine 0 SEEN /hpf (0-5)
[2022-09-15 16:31] LABS: Color, Urine Yellow (Yellow); Glucose, Dipstick Normal (Normal); Ketone-Dipstick Negative (Negative); Leukocyte Esterase-Dipstick 25 /ul (Negative); Nitrite-Dipstick Negative (Negative); Occult Blood-Urine 10 /ul (Negative); Protein-Dipstick Negative (Negative); Urine Bilirubin Dipstick Negative (Negative); Urine Clarity Clear (Clear); Urine Urobilinogen Normal (Normal)
[2022-09-15 16:42] LABS: Squamous Epithelial Cells - UA 0-5 SEEN /hpf (5-10); White Blood Cells 0-5 SEEN /hpf (0-5)
== END | disposition home or self-care (01) ==
LOC: MFPLAB 15:20
PROVIDERS: PCP Family Medicine; Referring Provider Family Medicine; Visit Provider Family Medicine
DX: N39.0 Urinary tract infection, site not specified (principal)
CPT/HCPCS: 81001; 87086; 87088

== ENCOUNTER 2022-09-23 13:12 | Emergency (ER) | payer MEDICARE, SELFPAY ==
[2022-09-23 13:15] VITALS: BP 140/89; PULSE 68; RESP 18; TEMP 36.8; O2SAT 98
--- NOTE | 2022-09-23 14:49 | CT_ITS ---
STUDY: CT BRAIN WITHOUT CONTRAST REASON FOR EXAM: Female, 72 years old. Stroke RADIATION DOSAGE (If Supplied By Facility): CTDIvol = ( 44.99 ) mGy, DLP = ( 796.11 ) mGycm TECHNIQUE: Transaxial CT imaging of the brain was performed without administration of intravenous contrast material. Individualized dose optimization techniques were used for this CT. COMPARISON: 08/02/2022 CT head FINDINGS: Normal soft tissue structures. Normal calvarium. There is mild cerebral atrophy with widening of the extra-axial spaces and ventricular dilatation. There are areas of decreased attenuation within the white matter tracts of the supratentorial brain, consistent with microvascular disease changes. Normal basal ganglia and thalami. Normal brainstem. Normal cerebellum. There is a small focal hyperdense region within the left parietal lobe likely representing residual gyral hemorrhage with similar appearance compared to the prior exam measuring approximately 7 mm. There are no findings of an acute ischemic infarction. Normal visualized paranasal sinuses. CT/Brain/Head without Contrast IMPRESSION: 1. Stable hyperdense region within the left gyral parietal lobe measuring 7 mm and likely representing residual blood product with similar appearance compared to the 08/02/2022 exam. Otherwise no evidence of additional acute intracranial bleed. 2. There is a new hypodense region within the left posterior watershed zone consistent with previous subacute infarct and encephalomalacia (series 2 image ). Electronically Signed: Yamil Tomas DO at 16:00 EDT ,
[2022-09-23 14:51] VITALS: BP 129/78; PULSE 63; RESP 16; O2SAT 97; BMI 34.7
[2022-09-23 15:20] LABS: Absolute Lymphocyte Count 1.44 X10^3/uL (0.83-4.51); Absolute Neutrophil Count 5.8 X10^3/uL (2.0-7.7); Basophil# 0.07 X10^3/uL; Basophil% 0.9 % (0-1); Eosinophil# 0.16 X10^3/uL; Hemoglobin 13.6 g/dL (12.0-15.0); Lymphocyte # 1.44 X10^3/ul (0.83-4.51); Lymphocyte % 17.9 % (19-41); Mean Corp Hgb Conc 34.9 g/dL (32-36); Mean Corpuscular Hgb 30.6 pg (27.0-32.0); Mean Corpuscular Volume 87.8 fL (81-99); Mean Platelet Vol. 9.9 fl (6.2-12.0); Monocyte# 0.59 X10^3/uL; Monocyte% 7.3 % (0-10); NRBC Flagged by Analyzer 0 % (0-5); Neutrophil # 5.76 X10^3/uL (2.7-7.7); Neutrophil % 71.4 % (47-70); Platelet Count 225 K/mm3 (150-450); RBC Distribution Width CV 12.6 % (11.6-14.6); RBC Distribution Width SD 40.4 fl (35.1-43.9); Red Blood Count 4.44 M/mm3 (4.2-5.4); White Blood Count 8.1 K/mm3 (4.4-11.0)
[2022-09-23 15:28] LABS: Partial Thromboplast Time 28.9 Seconds (24.1-36.2); Prothrombin Time (Protime)PT. 12.7 SECONDS (11.7-14.9)
[2022-09-23 15:30] LABS: Bacteria 0 SEEN /hpf (None Seen); Mucous, Urine 0 SEEN /hpf (<or=2+); Red Blood Cells-Urine 0 SEEN /hpf (0-5); White Blood Cells 0 SEEN /hpf (0-5)
[2022-09-23 15:37] LABS: Color, Urine Yellow (Yellow); Glucose, Dipstick Normal (Normal); Ketone-Dipstick Negative (Negative); Leukocyte Esterase-Dipstick 25 /ul (Negative); Nitrite-Dipstick Negative (Negative); Occult Blood-Urine 10 /ul (Negative); Protein-Dipstick Negative (Negative); Urine Bilirubin Dipstick Negative (Negative); Urine Clarity Clear (Clear); Urine Urobilinogen Normal (Normal)
--- NOTE | 2022-09-23 15:40 | RAD_ITS ---
STUDY: X-RAY CHEST REASON FOR EXAM: Female, 72 years old. Chest pain TECHNIQUE: PA and lateral views of the chest. COMPARISON: 08/02/2022 FINDINGS: The lungs are clear and expanded. There is no demonstrated pleural abnormality. Normal size heart. Normal mediastinum and lisbet. Normal visualized pulmonary arteries. There is atherosclerotic calcification of the aortic arch with tortuosity. Normal visualized thoracic spine. Normal visualized ribs, clavicles, and shoulders. Large hiatal hernia is present. There is no demonstrated abnormality of the visualized soft tissue structures of the upper abdomen. RAD/Chest PA and Lateral IMPRESSION: Large hiatal hernia with otherwise no evidence of focal airspace disease. Electronically Signed: Yamil Tomas DO at 16:02 EDT ,
[2022-09-23 15:46] LABS: AST(SGOT) 20 U/L (15-37); Alanine Aminotransfer ALT/SGPT 20 U/L (13-56); Albumin, Serum 3.7 g/dL (3.2-5.0); Alkaline Phosphatase 119 U/L (45-117); Anion Gap 3 (5-15); BUN 14 mg/dL (7-18); BUN/Creat Ratio 13.2 RATIO (10-20); Chloride 105 mmol/L (98-107); Creatinine, Serum 1.06 mg/dL (0.55-1.02); EST Glomerular Filtration Rate 54 mL/min (>60); Est Glom Filt Rate - Afr Amer 65 mL/min (>60); Estimated Creatinine Clearance 33.95 ml/min; Globulin 3.7 g/dL (2.2-4.2); Glucose 110 mg/dL (74-106); Lipase 35 U/L (13-75); Potassium 4.4 mmol/L (3.5-5.1); Protein, Total 7.4 g/dL (6.4-8.2); Sodium Level 135 mmol/L (136-145); Troponin-I HS (w/2H Reflex) < 3 pg/mL (3.0-54.0)
[2022-09-23 15:46] LABS: Squamous Epithelial Cells - UA 0-5 SEEN /hpf (5-10)
[2022-09-23 16:00] VITALS: BP 139/73; PULSE 66; RESP 19; O2SAT 98
[2022-09-23 17:15] LABS: Reflex Troponin-HS? (from REC) Y
[2022-09-23 18:13] LABS: Troponin-I HS 3 pg/mL (3.0-54.0)
--- NOTE | 2022-09-23 18:40 | EDS_ITS ---
HPI History of Present Illness HPI Narrative: Patient presents with pain to her right arm and elbow area that began today. Patient states it has been coming and going. Patient states it lasts a few minutes. Patient describes her pain as aching. Patient states nothing makes it worse and nothing makes it better. Patient states she did have a stroke recently and is scheduled for follow-up next week. Patient states her pain starts in her neck and radiates down her arm. Patient denies any shortness of breath or cough. Patient is concerned that this could be cardiac in nature. Chief Complaint: Upper Extremity Injury Informant: patient Onset/Context/Timing Context: Gradual Onset Timing: Intermittent and Lasts (Few minutes) Quality of Pain: Aching Location: Right arm and right elbow Worsened by: Nothing Relieved by: Nothing Associated Symptoms Associated Symptoms: Negative for Parasthesia, Weakness or Loss of Funtion PFSH PFSH Medical History Abdominal pain Abdominal pain Allergic rhinitis Anxiety Dyslipidemia Hemorrhoids Hiatal hernia with GERD Hypertension Left atrial enlargement Osteopenia after menopause Personal history of colonic polyps Home Medications calcium carb-vit D3-minerals 600 mg calcium-400 unit tablet 1 tab PO BID 12/24/19 [History Last Taken Unknown] fexofenadine 180 mg tablet 180 mg PO DAILY PRN allergies' 12/24/19 [History Last Taken Unknown] fluticasone propionate 50 mcg/actuation nasal spray,suspension 2 spray intranasal DAILY PRN Allergies 12/24/19 [History Last Taken Unknown] omeprazole 40 mg capsule,delayed release 40 mg PO DAILY PRN GERD 12/24/19 [History Last Taken Unknown] amlodipine 2.5 mg tablet 7.5 mg PO QHS #90 tabs 08/27/22 [Rx Last Taken Unknown] aspirin 81 mg chewable tablet 81 mg PO DAILY Heart health #30 tabs 08/27/22 [Rx Last Taken Unknown] atenolol 25 mg tablet 25 mg PO QHS #30 tabs 08/27/22 [Rx Last Taken Unknown] atorvastatin 40 mg tablet 40 mg PO QHS Cholestrol #30 tabs 08/27/22 [Rx Last Taken Unknown] losartan 100 mg tablet 100 mg PO DAILY #30 tabs 08/27/22 [Rx Last Taken Unknown] magnesium chloride 64 mg (magnesium chloride) tablet 64 mg PO DAILY #30 tabs 08/27/22 [Rx Last Taken Unknown] potassium chloride 20 mEq tablet,extended release 20 meq PO BREAKFAST #30 tabs 08/27/22 [Rx Last Taken Unknown] trazodone 50 mg tablet 50 mg PO QHS #30 tabs 08/27/22 [Rx Last Taken Unknown] Allergy/AdvReac Type Severity Reaction Status Date / Time No Known Allergies Allergy Verified 09/23/22 13:17 Family History Sister Diabetes Mother CVA (cerebral vascular accident) High cholesterol Brother High cholesterol Surgical History History of bunionectomy of both great toes History of esophagogastroduodenoscopy (EGD) Hx of colonoscopy Hx of oral surgery Hx of right breast biopsy Social History household members: family and other details: She lives with her 98-year-old mother in a private one-story home with [address]: house pets and animals: Yes (1 dog and 1 cat) Smoking Status: Never smoker alcohol intake: never substance use type: does not use caffeine: Yes what type of physical activity do you participate in: none frequency: does not exercise ROS ROS ED Constitutional Constitutional ED: Denies chills or fever(s) Eyes Eyes: Denies blurry vision or change in vision ENT ENT ED: Denies rhinorrhea or sore throat Cardiovascular Cardiovascular: Denies chest pain or palpitations Respiratory/Chest Respiratory/Chest: Denies cough or dyspnea Gastrointestinal Gastrointestinal: Denies nausea or vomiting Genitourinary Genitourinary ED: Denies dysuria or hematuria Musculoskeletal Musculoskeletal: Denies back pain or neck pain Integumentary Denies abscess or rash Neurologic Neurologic: Denies headache(s) or weakness Allergic/Immunologic Allergic/Immunologic ED: Denies mouth swelling or urticaria EXAM Physical Exam Const Vital Signs: 09/23/22 13:15 09/23/22 14:51 09/23/22 16:00 Temperature 98.3 F Temperature Source Temporal Pulse Rate 68 63 66 Respiratory Rate 18 16 19 H Blood Pressure 140/89 H 129/78 H 139/73 H Blood Pressure Mean 106 95 95 Pulse Ox 98 97 98 Oxygen Delivery Method Room Air Room Air Room Air Positive well nourished and well developed General Appearance ED: well developed HEENT Reports moist mucous membranes Neck supple and no JVD Resp normal respiratory effort and clear to auscultation bilaterally Cardio regular rate, regular rhythm and no murmurs GI normal to inspection, nondistended, normoactive bowel sounds Palpation: soft and tender epigastric and RUQ; Negative for guarding or rebound tenderness present Extremity normal to inspection General Extremety ED: Negative for edema or tenderness General Extremity: Negative for edema Neuro oriented x3, CN's II-XII intact bilaterally and no sensory deficits noted Sensorium / Orientation: alert Motor Exam: strength 5/5 throughout Psych mental status grossly normal Skin no rashes or lesions noted MDM MDM MDM Narrative Medical decision making narrative: Differential diagnosis includes cardiac dysrhythmia, cardiac ischemia, stroke, neuropathy, radiculopathy, and musculoskeletal pain. CT scan of the brain will be obtained to assess for stroke or intracranial bleeding. Chest x-ray will be obtained to assess for pneumonia and pneumothorax. EKG will be obtained to assess for cardiac dysrhythmia and cardiac ischemia. CBC will be obtained to assess for leukocytosis and anemia. Comprehensive metabolic profile will be obtained to assess for hepatic function, renal function, and electrolyte abnormality. Lipase will be obtained to assess for pancreatitis. Urinalysis will be obtained to assess for urinary tract infection. PT with INR and PTT will be obtained to assess for coagulopathy. Lab Data Attestation: I reviewed the patient's lab results. Lab results narrative: CBC was reviewed and was within normal limits. PT with INR and PTT was reviewed and was within normal limits. Comprehensive metabolic profile was reviewed and was within normal limits. High-sensitivity troponin was reviewed and was less than 3. Lipase was reviewed and was normal. 2-hour repeat high-sensitivity troponin was reviewed and was 3. Urinalysis was reviewed. There is no evidence of urinary tract infection. Labs: Laboratory Results - last 24 hr 09/23/22 09/23/22 09/23/22 15:10 15:10 15:10 WBC 8.1 RBC 4.44 Hgb 13.6 Hct 39.0 MCV 87.8 MCH 30.6 MCHC 34.9 RDW Std Deviation 40.4 RDW Coeff of [place] 12.6 Plt Count 225 MPV 9.9 Immature Gran % (Auto) 0.500 Neut % (Auto) 71.4 H Lymph % (Auto) 17.9 L [place] % (Auto) 7.3 Eos % (Auto) 2.0 Baso % (Auto) 0.9 Absolute Neuts (auto) 5.8 Absolute Lymphs (auto) 1.44 Nucleated RBC % 0 PT 12.7 INR 1.0 APTT 28.9 Sodium 135 L Potassium 4.4 Chloride 105 Carbon Dioxide 27.0 Anion Gap 3 L BUN 14 Creatinine 1.06 H Estim Creat Clear Calc 33.95 Est GFR (MDRD) Af Amer 65 Est GFR (MDRD) Non-Af 54 L BUN/Creatinine Ratio 13.2 Glucose 110 H Calcium 10.0 Total Bilirubin 0.60 AST 20 ALT 20 Alkaline Phosphatase 119 H Troponin I High Sens < 3 L Total Protein 7.4 Albumin 3.7 Globulin 3.7 Albumin/Globulin Ratio 1.0 Lipase 35 Urine Color Urine Clarity Urine pH Ur Specific [place] Urine Protein Urine Glucose (UA) Urine Ketones Urine Occult Blood Urine Nitrite Urine Bilirubin Urine Urobilinogen Ur Leukocyte Esterase Urine RBC Urine WBC Ur Squamous Epith Cells Urine Bacteria Urine Mucus 09/23/22 09/23/22 15:20 17:35 WBC RBC Hgb Hct MCV MCH MCHC RDW Std Deviation RDW Coeff of [place] Plt Count MPV Immature Gran % (Auto) Neut % (Auto) Lymph % (Auto) [place] % (Auto) Eos % (Auto) Baso % (Auto) Absolute Neuts (auto) Absolute Lymphs (auto) Nucleated RBC % PT INR APTT Sodium Potassium Chloride Carbon Dioxide Anion Gap BUN Creatinine Estim Creat Clear Calc Est GFR (MDRD) Af Amer Est GFR (MDRD) Non-Af BUN/Creatinine Ratio Glucose Calcium Total Bilirubin AST ALT Alkaline Phosphatase Troponin I High Sens 3 Total Protein Albumin Globulin Albumin/Globulin Ratio Lipase Urine Color Yellow Urine Clarity Clear Urine pH 6.0 Ur Specific [place] 1.010 Urine Protein Negative Urine Glucose (UA) Normal Urine Ketones Negative Urine Occult Blood 10 H Urine Nitrite Negative Urine Bilirubin Negative Urine Urobilinogen Normal Ur Leukocyte Esterase 25 H Urine RBC 0 SEEN Urine WBC 0 SEEN Ur Squamous Epith Cells 0-5 SEEN Urine Bacteria 0 SEEN Urine Mucus 0 SEEN Radiography Diagnostic Testing: Clinical Impression(s) from Imaging Studies Brain CT 09/23/22 14:49 IMPRESSION: 1. Stable hyperdense region within the left gyral parietal lobe measuring 7 mm and likely representing residual blood product with similar appearance compared to the 08/02/2022 exam. Otherwise no evidence of additional acute intracranial bleed. 2. There is a new hypodense region within the left posterior watershed zone consistent with previous subacute infarct and encephalomalacia (series 2 image ). Electronically Signed: Yamil Tomas DO at 16:00 EDT , Chest X-Ray 09/23/22 15:40 IMPRESSION: Large hiatal hernia with otherwise no evidence of focal airspace disease. Electronically Signed: Yamil Tomas DO at 16:02 EDT , CT scan of the brain was obtained. There is no acute intracranial abnormality. There are changes from previous stroke. This was interpreted by the radiologist and was also independently reviewed by myself. PA and lateral chest x-ray was obtained. There are 2 views. On my independent interpretation, lung crockett are clear. There is normal cardiac silhouette. Bony thorax is normal. There is no acute process noted. Radiologist also interpreted the x-ray and agrees. EKG Initial EKG: Attestation: I personally reviewed and interpreted this EKG as follows: Interpretation: Sinus Rhythm (64) and No Acute Injury Pattern Comments: EKG was obtained. On my independent interpretation, it showed a normal sinus rhythm with a rate of 64. AL interval, QRS interval, and QTc intervals were all normal. [place] was normal. There are no acute ST or T wave changes. Prior EKG tracings: available for review Prior: Unchanged (08/23/2022) Treatment and Re-Evaluation Narrative: Patient was advised of her findings. Patient was advised that this is noncardiac in nature. This is not related to her stroke. This may be musculoskeletal or neuropathy. Patient was instructed to follow-up with her primary care physician in 5 to 7 days. Patient understood and was agreeable with the plan. All questions were answered. Discharge Plan Triage Chief Complaint: Upper Extremity Injury ED Provider: Schwiger,Gelacio Dx/Rx/DC Orders Clinical Impression: Pain in right upper arm Instructions: ED Pain, Acute, Uncertain Cause Prescriptions: No Action omeprazole 40 mg capsule,delayed release(DR/EC) 40 mg PO DAILY PRN (Reason: GERD) fluticasone propionate 50 mcg/actuation spray,suspension 2 spray INTRANASAL DAILY PRN (Reason: Allergies) Rx Instructions: administer into each nostril calcium carbonate-vit D3-min 600 mg calcium- 400 unit tablet 1 tab PO BID fexofenadine 180 mg tablet 180 mg PO DAILY PRN (Reason: allergies') atenolol 25 mg Tablet 25 mg PO QHS Qty: 30 0RF amlodipine 2.5 mg Tablet 7.5 mg PO QHS Qty: 90 0RF Rx Instructions: Take 3 tabs daily at bedtime. losartan 100 mg Tablet 100 mg PO DAILY Qty: 30 0RF magnesium chloride 64 mg magnesium tablet 64 mg PO DAILY Qty: 30 0RF potassium chloride 20 mEq tablet extended release 20 meq PO BREAKFAST Qty: 30 0RF trazodone 50 mg Tablet 50 mg PO QHS Qty: 30 0RF Rx Instructions: for insomnia atorvastatin 40 mg tablet 40 mg PO QHS Qty: 30 0RF Rx Instructions: take this medication at bedtime aspirin 81 mg Tablet,Chewable 81 mg PO DAILY Qty: 30 0RF Rx Instructions: Take this medication with food. Primary Care Provider: Velasquez Lynn Referrals: Velasquez Lynn MD [Primary Care Provider] - 5-7 Days Disposition Disposition: Home, Self Care
--- NOTE | 2022-09-23 18:48 | EKG12_ITS ---
Test Reason : DYSRHYTHMIA Blood Pressure : / mmHG Vent. Rate : 064 BPM Atrial Rate : 064 BPM P-R Int : 170 ms QRS Dur : 088 ms QT Int : 438 ms P-R-T Axes : 037 004 008 degrees QTc Int : 451 ms Normal sinus rhythm Normal ECG Confirmed by KAYLA LENTZ, KAMI ([id number]), news copy editor NNEKA MADRID ([id number]) on 09/27/2022 11:42:10 AM Referred By: CHRIS Confirmed By:ORTIZ GARZA MD
[2022-09-23 19:21] VITALS: BP 136/78
[2022-09-23 19:22] VITALS: BP 136/78
== END 2022-09-23 19:22 | disposition home or self-care (01) ==
PROVIDERS: Emergency Provider Emergency Medicine; PCP Family Medicine; Visit Provider Emergency Medicine
DX: M79.621 Pain in right upper arm (principal); I10 Essential (primary) hypertension; E78.5 Hyperlipidemia, unspecified; Z98.2 Presence of cerebrospinal fluid drainage device; Z79.899 Other long term (current) drug therapy; Z86.73 Personal history of transient ischemic attack (TIA), and cerebral infarction without residual deficits
CPT/HCPCS: 70450; 71046; 80053; 81001; 83690; 84484; 85025; 85610; 85730; 93005; 99285; A4216

== ENCOUNTER → 2022-11-23 | Outpatient (CLI) | payer MEDICARE, SELFPAY ==
--- NOTE | 2022-11-23 10:29 | BI_ITS ---
MAMMOGRAPHY - BILATERAL SCREENING REASON FOR EXAM: Female, 72 years old. Routine annual screening examination. PERTINENT HISTORY: Non-contributory. History of prior right stereotactic breast biopsy. TECHNIQUE: Digital bilateral breast linwood (3D mammographic acquisition) in the CC and MLO projections. 2-D mediolateral oblique (MLO) and craniocaudad (CC) views of both breasts were obtained. CAD: Full Field Digital Mammography with Computer Added Detection was performed. COMPARISON: Comparison is made with prior study of October 13, 2020 and October 02, 2019. FINDINGS: Breast Composition: The breasts are heterogeneously dense, which may obscure small masses. There are no dominant masses or suspicious calcifications. A tissue clip marker seen in the deep slightly inferior medial aspect of the right breast. No other significant abnormalities are identified. There has been no significant change since the prior study. BI/SCRN MAMM (CAD)W/LINWOOD BILAT IMPRESSION: Stable bilateral screening mammogram. Yearly follow-up mammogram recommended. (A) ASSESSMENT CATEGORY: BIRADS Category 2: Benign. A letter regarding these results will be sent to the patient by the facility within 30 days. Approximately 10% of breast cancers are not detected by mammography. A normal mammogram should not delay biopsy of a clinically suspicious abnormality. [id number] Electronically Signed: Darryn Mora MD at 11:59 EDT ,
--- NOTE | 2022-11-23 10:36 | BD_ITS ---
STUDY: DUAL ENERGY X-RAY ABSORPTIOMETRY / DXA REASON FOR EXAM: Female, 72 years old. M810 TECHNIQUE: Bone Mineral Density (BMD) measurements of lumbar spine and bilateral hips were obtained. COMPARISON: Comparison is made with prior study dated November 19, 2020. FINDINGS: Lumbar Spine (L1-L4): g/cm2 (0.881) / T-score (-1.5) / Z-score (0.8) Findings are suggestive of osteopenia with a low fracture risk. Left Femur Total: g/cm2 (0.912) / T-score (-0.2) / Z-score (1.4) Left Femoral Neck: g/cm2 (0.564) / T-score (-2.6) / Z-score (-0.6) Right Femur Total: g/cm2 (0.813) / T-score (-1.1) / Z-score (0.6) Right Femoral Neck: g/cm2 (0.527) / T-score (-2.9) / Z-score ( ) The T-Scores on the most recent prior examination were: Lumbar Spine (L1-L4): There has been worsening of bone density since the previous examination. Left Femur Total : which represents an improvement of 4.7%. Right Femur Total: which represents a worsening of 1.5%. BD/Dexa Bone Density Study IMPRESSION: The patient is considered osteoporotic as outlined below according to World Elias Organization (WHO) criteria with a high fracture risk. There has been worsening of bone density since the previous examination. Reference Information: The T-score is the number of standard deviations above or below the standard which is normal for young adults at their peak bone mineral density. The World Health Organization (WHO) interprets the T-scores as follows: Above -1 Normal bone density Between -1 and -2.5 Osteopenia Equal to / or below -2.5 Osteoporosis As a practical clinical guideline, osteopenia may be graded as follows: Mild -1 through -1.5 Moderate -1.6 through -2.0 Severe -2.1 through -2.4 The Z-score is the number of standard deviations above or below age-matched controls. A Z-score of less than -1.5 would be considered abnormal. References: 1. NIH Osteoporosis and Related Bone Diseases www osteo.org 2. International Society for Clinical Densitometry www iscd.org 3. National Osteoporosis Foundation www nof.org Electronically Signed: Darryn Mora MD at 11:59 EDT ,
--- NOTE | 2022-11-25 14:38 | HP.SP.REEV ---
History History Date of Eval: 11/25/22 Attending Doctor: Referring Doctor: Smoking Status: Never smoker Hx Smoking: No Hx Tobacco Use: No Pain Is pain an issue with your current prescribed condition?: No Personal Preferred language: Kinyarwanda Patient Allergies Allergies Allergies: Allergies No Known Allergies Allergy (Verified 10/11/22 07:40) Previous/Current Goals Goals 1-5 Previous Goal #1: Pt independently will complete complex problem solving, reasoning, and executive function tasks including but not limited to functional ADL (i.e. managing finances, safety awareness, paying bills, medication management, meal planning, using cellphone) with 90% acc during 2/3 sessions. Goal 1 Status: GOAL Progressing: Memory and mental manipulation, word order 4:20% acc, increased to 40% with rep & cues When provided a visual and using verbal rehearsal, 20%acc, increased to 80% with repetition Pt group items in a grocery list to assist with memory. With a 1 minute delay, pt recalled 6/8 items Previous Goal #2: Pt will identify moments of conversation breakdown and utilize 1 conversational repair strategy during 2/3 opportunities with up to min cues during 3 measured sessions. Goal 2 Status: GOAL MET: Pt I identified moments of conversational breakdown and repaired them. There were limited number of breakdowns as pt was further into treatment. Pt reported low conversational breakdown issues at home. Previous Goal #3: Pt will participate in an ongoing assessment of her language and cognition to measure progress and recreate appropriate goals. Goal 3 Status: Goal Progressing: Sanaz has completed 2[facility] sections [facility] executive functioning assessment and will complete the other 2 sections in tx. * Pediatric & Adult patients Adult Subjective Cog/Ling/Com Subjective Cognitive/Linguistic/Communication: Pt's daughter expressed concerns about her mother's ability to manage medications, finances, bills and other tasks of daily living. Pt's daughter stated that her mother often get confused, especially at night and has trouble explaining what she needs to ask for help. During the [facility]RES assessment, Sanaz had difficulty forming questions to ask for clarification and need multiple repetition of the task directions. Sanaz stated that when she gets something, it becomes easy, but it can be hard to wrap her head around new concepts and explain what she is trying to say. Both Sanaz and her daughter reports frustration due to communication breakdowns and difficulty with ALDS. RODRIGUE HUSAIN Administered: Yes RODRIGUE: Functional Assessment of Verbal Reasoning and Executive Strategies is a standardized test of subtle cognitive- communication difficulties designed specifically for patients with acquired brain injuries including CVA and trauma. This functional measure targets aspects of complex communication, complex expression, verbal reasoning and problem solving, and executive functioning. This tests consists of four verbal reasoning tasks: Planning an event, Scheduling, Making a Decision and Building a case. The standard score is a mean of 100 with a standard deviation of 15. A score of 85 or better is considered within normal limits. Planning an Event Accuracy Standard Score: 3 Rationale Standard Score: 5 Time Standard Score: 6 Comments: Accuracy - did not met cut off, Standard Score - 70 Rationale - met cut off Making a Decision Accuracy Standard Score: 4 Rationale Standard Score: 5 Time Standard Score: 8 Comments: Accuracy - Met cut off Score Rationale - met cut off Reference: Neuro-QoL instrument Radiation Oncology Patient Plan Plan Plan: Will recommend Pt for weekly continued outpatient speech therapy to address mod cognitive impairment characterized by deficits in working memory, word retrieval, verbal reasoning, executive functioning, problem solving/reasoning, and safety awareness. Pt would benefit from continued training in compensatory strategies for medication management, finance management and self monitoring, as well as cognitive training to improve cognitive functioning. Recommendations MBS: No Treatment Warranted: Yes Treatment Warranted: Receptive/ Expressive Language Progress Prognosis: Excellent Frequency Frequency: 1-2x /Week Duration: 2-4 Months Goals that are Established Determination:: Goals will be added/modified as deemed necessary and appropriate. Therapy will be discontinued when results of re-evaluation indicate therapy is no longer needed or lack of progress has been documented. Goal #1-5 Goal #1: Pt independently will complete complex problem solving, reasoning, and executive function tasks including but not limited to functional ADL (i.e. managing finances, safety awareness, paying bills, medication management, meal planning, using cellphone) with 90% acc during 2/3 sessions. Goal #2: Pt will complete verbal monologue tasks including but not limited to stating pros/cons, verbal reasoning, problem solving, requesting help, explaining directions, story telling/retelling with no more than min cues during 2/3 trials across 3 sessions. Goal #3: Pt will complete basic to complex short-term, and working memory tasks with 80% acc independently across 3 measured opportunities. Goal #4: Pt will complete the FAVRES testing
== END | disposition home or self-care (01) ==
LOC: OPBD 10:26
PROVIDERS: PCP Family Medicine; Referring Provider Family Medicine; Visit Provider Family Medicine
DX: M81.0 Age-related osteoporosis without current pathological fracture (principal); Z12.31 Encounter for screening mammogram for malignant neoplasm of breast
CPT/HCPCS: 77063; 77067; 77080

== ENCOUNTER → 2022-11-29 | Outpatient (CLI) | payer MEDICARE, SELFPAY ==
[2022-11-29 13:09] LABS: ALB/GLOB Ratio 0.9 RATIO (0.9-2.4); AST(SGOT) 12 U/L (15-37); Alanine Aminotransfer ALT/SGPT 20 U/L (13-56); Albumin, Serum 3.6 g/dL (3.2-5.0); Alkaline Phosphatase 115 U/L (45-117); Anion Gap 6 (5-15); BUN 18 mg/dL (7-18); Calcium,Total 9.5 mg/dL (8.5-10.1); Chloride 105 mmol/L (98-107); Cholesterol 190 mg/dL (200); Creatinine, Serum 1.29 mg/dL (0.55-1.02); EST Glomerular Filtration Rate 43 mL/min (>60); Est Glom Filt Rate - Afr Amer 52 mL/min (>60); Globulin 3.9 g/dL (2.2-4.2); Glucose 146 mg/dL (74-106); High Density Lipoprotein 51 mg/dL; Potassium 4.3 mmol/L (3.5-5.1); Protein, Total 7.5 g/dL (6.4-8.2); Sodium Level 138 mmol/L (136-145); Triglycerides 279 mg/dL; Very Low Density Lipoprotein 56 mg/dL (5-40)
== END | disposition home or self-care (01) ==
LOC: MFPLAB 10:40
PROVIDERS: PCP Family Medicine; Visit Provider Family Medicine
DX: I63.9 Cerebral infarction, unspecified (principal)
CPT/HCPCS: 36415; 80053; 80061

== ENCOUNTER → 2022-12-24 | Outpatient (CLI) | payer MEDICARE, SELFPAY ==
[2022-12-24 12:52] LABS: Anion Gap 6 (5-15); BUN 14 mg/dL (7-18); BUN/Creat Ratio 13.6 RATIO (10-20); Calcium,Total 9.3 mg/dL (8.5-10.1); Chloride 104 mmol/L (98-107); Creatinine, Serum 1.03 mg/dL (0.55-1.02); EST Glomerular Filtration Rate 56 mL/min (>60); Est Glom Filt Rate - Afr Amer 67 mL/min (>60); Glucose 111 mg/dL (74-106); Magnesium 2.1 mg/dL (1.6-2.6); Phosphorus 3.1 mg/dL (2.5-4.9); Potassium 3.9 mmol/L (3.5-5.1); Sodium Level 138 mmol/L (136-145)
[2022-12-24 12:54] LABS: PTHIN 66.9 pg/mL (18.4-80.1); Vitamin D,25 Hydroxy 45.4 ng/mL
== END | disposition home or self-care (01) ==
LOC: MTLAB 11:13
PROVIDERS: PCP Family Medicine; Referring Provider Family Medicine; Visit Provider Family Medicine
DX: M85.80 Other specified disorders of bone density and structure, unspecified site (principal)
CPT/HCPCS: 36415; 80048; 82306; 83735; 83970; 84100

== ENCOUNTER → 2023-03-04 | Outpatient (CLI) | payer MEDICARE, SELFPAY ==
--- NOTE | 2023-03-04 09:20 | RAD_ITS ---
INDICATION: pain EXAMINATION/TECHNIQUE: X-RAY - XR Spine Cervical 4 or 5 Views: AP, lateral, bilateral oblique and open-mouth odontoid views COMPARISON: None. FINDINGS: VERTEBRAE: Preserved vertebral body heights. No fracture. No spondylolisthesis. Preservation of the normal cervical lordosis. No suspicious osseous lesion. Multilevel mild degenerative facet arthropathy. DISCS: Disc spaces are maintained. NECK SOFT TISSUES: No prevertebral soft tissue widening. LUNG APICES: Clear. RAD/Cerv Spine 4 or 5 Views IMPRESSION: Mild cervical degenerative facet arthropathy. Electronically Signed: Pako Sanchez MD at 0:19 EDT ,
== END | disposition home or self-care (01) ==
LOC: MTRAD 09:17
PROVIDERS: PCP Family Medicine; Referring Provider Family Medicine; Visit Provider Family Medicine
DX: S46.811A Strain of other muscles, fascia and tendons at shoulder and upper arm level, right arm, initial encounter (principal); X58.XXXA Exposure to other specified factors, initial encounter
CPT/HCPCS: 72050

== ENCOUNTER 2023-03-14 13:00 | Outpatient (RCR) | payer MEDICARE, SELFPAY ==
--- NOTE | 2022-08-31 14:25 | HP.SP.EV_ITS ---
Visit History - Visit Info Date of Eval: 08/30/22 Visit: 1 Business Agent: GREGORIA - History Attending Doctor: Referring Doctor: Reason for Referral: CVA,COGNITIVE DYSFUNC/EXECTUTIVE FUNCTION. RX HERE Previous speech therapy: Yes Other Relevant Medical History/Diagnoses/Surgery: Sanaz is a 72 year old female who was seen at [facility] for a speech and language evaluation. Pt was accompanied by her daughter. Pt lives at home with her mother and acts as her caregiver. Pt daughter currently is helping out at their house with ADL's. 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 Pt was treated at [facility] then transferred to [facility]. Pt was on the rehab floor for 2 weeks and received speech therapy during their stay. Pt and her daughter reports no cognitive, speech or language impairments at baseline prior to the cva. Medications related to this diagnosis: , bills, medication, getting things switched around, deficit awareness, Smoking Status: Never smoker - Diagnosis Diagnosis: CVA - Pain Is pain an issue with your current prescribed condition?: No - Personal Preferred language: Romanian History - History Date of Eval: 08/30/22 Previous speech therapy: Yes Other Relevant Medical History/Diagnoses/Surgery: Sanaz is a 72 year old female who was seen at [facility] for a speech and language evaluation. Pt was accompanied by her daughter. Pt lives at home with her mother and acts as her caregiver. Pt daughter currently is helping out at their house with ADL's. 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 Pt was treated at [facility] then transferred to [facility]. Pt was on the rehab floor for 2 weeks and received speech therapy during their stay. Pt and her daughter reports no cognitive, speech or language impairments at baseline prior to the cva. Medications related to this diagnosis: , bills, medication, getting things switched around, deficit awareness, Smoking Status: Never smoker Hx Smoking: No Hx Tobacco Use: No - Pain Is pain an issue with your current prescribed condition?: No Patient Allergies - Allergies Allergies lisinopril Adverse Reaction (Mild, Verified 08/02/22 13:22) Other Objective Cog/Ling/Com - Orientation Orientation: Person, Place, Date, Day, Birthdate, Medical Diagnosis - Naming [place]: WNL Abstract: Moderate - Conversational Tasks Conversational Tasks: Mild Comments: Pt's daughter notes difficulty with using the correct word. Pt will use the opposite word and this causes communication breakdowns (i.e. saying up for down) - Recall Repeating Words: Difficulty with memory and mental manipulation tasks. - Medication Reading a medication label: Severe Correctly stating instructions of medications: Severe Completing medications independently: Severe - Numerical Skills Counting Money: Pt's daughter has taken on financial services officer use to pt's problems with higher level executive functioning tasks. Pt wishes to work towards regaining independence in this area Telling Time: Pt has difficulty with reading a clock and drawing the hands on a clock Numerical Work Problems: Pt stated she has had great difficulty with mental math, which used to be a strength for her. - Problem Solving Simple: Mild Complex: Severe - Judgement & Reasoning Judgement/Reasoning: Mild - Cognitive Linguistic Supervision/Saftey Awareness of deficits: Mild Being left home alone: WFL Managing medications: Moderate, Severe Managing finances: Moderate, Severe CLQT - CLQT CLQT Administered: Yes CLQT: Cognitive Linguistic Quick Test (CLQT) is a criterion - referenced assessment designed for adults between the ages of 18 and 89 with known or suspected neurological dysfuntions. The CLQT is to assess strength and weaknesses in five cognitive domains. Severity ratings are within normal limits, mild, moderate, severe deficits. The subtests are as follows: Date: 08/30/22 - Attention Attention: WNL - Memory Memory: WNL - Executive Functions Executive Functions: WNL - Language Language: Mild - Visuospatial Skills Visuospatial Skills: WNL - Composite Severity Rating Composite Severity Rating: WNL - Clock Drawing Severity Rating Clock Drawing Severity Rating: Mild - In past 7 days I had to read something several times to understand it: Rarely (once) My thinking was slow: Sometimes (2-3 times) I had to work really hard to pay attention or i would make a mistake: Sometimes (2-3 times) I had trouble concentrating: Sometimes (2-3 times) - How much DIFFICULTY do you currently reading & following complex instructions (e.g. directions for new medication: Cannot do planning for & keeping appts that are not part of weekly routine: A lot managing your time to do most of your daily activities: A lot learning new tasks or instructions: Cannot do - Neuro-QOL Score Raw Score: 19 T - Score: 34.0 Plan - Plan Plan: Will recommend Pt for weekly outpatient speech therapy to address mild to mod cognitive impairment characterized by deficits in working memory, word r etrieval, executive functioning, problem solving/reasoning, and safety awareness. Pt would benefit from training in compensatory strategies for medication management, finance managment and word retrieval, as well as cognitive training to improve cognitive functioning. - Recommendations MBS: No Treatment Warranted: Yes Treatment Warranted: Receptive/ Expressive Language, Cognition - Progress Prognosis: Excellent - Frequency Frequency: 1-2x /Week Duration: 6 Months - Goals that are Established Determination:: Goals will be added/modified as deemed necessary and vi ropriate. Therapy will be discontinued when results of re-evaluation indicate therapy is no longer needed or lack of progress has been documented. - Goal #1-5 Goal #1: Pt independently will complete complex problem solving, reasoning, and executive function tasks including but not limited to functional ADL (i.e. managing finances, safety awareness, paying bills, medication management, meal planning, using cellphone) with 90% acc during 2/3 sessions. Goal #2: Pt will identify moments of conversation breakdown and utilize 1 conversational repair strategy during 2/3 opportunities with up to min cues during 3 measured sessions. Goal #3: Pt will participate in an ongoing assessment of her language and cogn ition to measure progress and recreate appropriate goals. Education - Patient has Indicated that the Following Identified Educational Needs: None The Patient has indicated that they have no educational or learning abilities that may effect their care.: Yes - Patient Instruction Patient Education: Diagnosis, Treatment Plan Person Taught: Patient, Family Teaching Method: Discussion Response to teaching: Verbalize understanding
--- NOTE | 2022-09-13 12:45 | HP.PTEVAL_ITS ---
Patient's Visit Information DESI ANDERSON is a 72 year old F referred to Physical Therapy by Dr. Aisha Horta DO with a diagnosis of STROKE. Date of Evaluation: 09/13/22 Physical Therapist: Priscilla Matos PT, Cert MDT - Visit Plan Frequency: 2-3x /Week Duration: 4-6 Months Plan: PHYSICIAN RESTRICTIONS: NO BENDING AND NO DRIVING. *STILL HAS SMALL BRAIN BLEED PER PATIENT REPORT (FOLLOW UP angiogram PENDING OCTOBER 04). GAIT AND BALANCE TRAINING ON LEVEL SURFACES AND UP AND DOWN STEPS. CORE STRENGTHENING WITH NEUTRAL SPINE. BRENDA LE ROM, STRETCHING AND STRENGTHENING. WORK ON LE PROPRIOCEPTION. - Subjective PATIENT REPORTS THAT PRIOR TO HAVING HER STORKE HER BACK HURT AND SHE KNOWS IT IS WEAK. SHE REPORTS SHE HAS SCOLIOSIS AND OSTEOPENIA. SHE REPORTS SHE WAS GOING TO THE CHIROPRACTOR BUT HAD TO STOP DUE TO HAVING THE STROKE 08/02/22. SHE REPORTS SHE IS HERE TO TRY TO GET HER WALKING BACK TO WHERE IT WAS BEFORE THE STROKE. NO PLANS TO GO BACK TO THE CHIROPRACTOR AT THIS POINT. SHE REPORTS HER WALKING IS STILL SLOWER THAN NORMAL BUT SHE IS NOT FALLING. STATES SHE WAS ABLE TO DO 4 FLIGHTS OF STAIRS IN THE HOSPITAL. OCT 04 2022 angiogram pending because she reports she still has a small bleed and they are hoping it will scar over. If it isn't healed she reports they are going to do a procedure. PATIENT REPORTS HAVING THE FOLLOWING RESTRICTIONS: NO DRIVING, NO BENDING OVER. Work/Leisure: RETIRED. Present symptoms: PATIENT DENIES PAIN CURRENTLY BUT REPORTS SHE WAS TESTED FOR UTI LAST WEEK AND HAS NOT RECEIVED THE RESULTS YET. NO LOW BACK PAIN RIGHT NOW. IT COMES AND GOES. Pain Scale: 0-7-8/10. Currently: 0/10. Is it getting better, worse or staying the same: GETTING BETTER. Commenced as a result of: NO APPARENT REASON. Symptoms at onset: COGNITIVE DIFFICULTY AND SOME R HAND NUMBNESS. Worse: SITTING. Better: TYLONOL. Disturbed sleep: YES. Previous history/Previous treatment: CHIROPRACTOR. NO BACK SURGERY. NO BACK INJECTIONS. Gait: SLOW BUT NOT USING ASSISTIVE DEVICE. Bowel or Bladder Dysfunction: NO. Accidents: NO. Unexplained weight loss: NO. Imaging: X- RAYS BY CHIROPRACTOR OF LOW BACK. NO MRI. PMH/Recent major surgery: HTN, HIGH CHOLESTEROL. OTHER: WEARING AFIB MONITOR X 30 DAYS - 2 DAYS LEFT. CONSIDERING PLANET FITNESS MEMBERSHIP WITH INSURANCE POST PT. - Objective THIS PATIENT AMBULATES INDEP'LY INTO PT WITHOUT ANY ASSISTIVE DEVICES AND WITHOUT ANY LOB. SHE WALKS WITH DECREASED CADANCE AND HAS DIFFICULTY INITIATING GAIT AFTER SITTING. ONCE WALKING HER STRIDE IMPROVES. SHE WAS BROUGHT TO PT ALONE BY SPEECH THERAPIST. SHE IS ORIENTED TO PERSON, PLACE AND TIME. SHE ANSWERS ALL QUESTIONS APPROPRIATELY AND FOLLOWS ALL COMMANDS WELL. SHE IS PLEASANT AND COOPERATIVE TO WORK WITH. Sensory deficit: BRENDA LE LIGHT TOUCH SE NSATION IS GROSSLY INTACT AND SYMMETRICAL. ROM deficit: TIGHT BRENDA LE HS AND GASTROC-SOLEUS COMPLEX'S. Motor deficit: BRENDA LE STRENGTH IS GROSSLY 5/5 WITH MMT'ING EXCEPT R HIP 4-/5 AND L HIP 4/5. Core strength: POOR. SEE TUG AND STS TEST RESULTS BELOW. OTHER: PATIENT IS ABLE TO SLS ON THE L LE WITHOUT UE ASSIST X APPOX 5 SEC BUT UNABLE TO STAND ON R LE WITHOUT AT LEAST ONE UE ASSIST. - PATIENTS DAUGHTER JOINED US LAST 10 MINUTES OF SESSION. - Balance/Special Test Scores Lower Extremity Functional Score: 37 TUG Test Time Seconds: 13.44 30 Second Chair Rise Test Seconds: 9 - Goals Goal 1:: PATIENT WILL COMPLETE 12 STANDS IN 30 SECS TO DEMONSTRATE IMPROVED FU NCTIONAL STRENGTH Goal 2:: PATIENT WILL COMPLETE TUG IN < 10 SECS TO DEMONSTRATE IMPROVED GAIT STABILITY Goal 3:: PATIENT WILL BE INDEP WITH A HEP FOR CONTINUED IMPROVEMENT ONCE FORMAL PHYSICAL THERAPY CONCLUDES. - Anticipated Interventions Patient/Client Instruction: Educate patient on: Condition, Plan of Care, Risk Factors For the Purpose of:: To improve self management Therapeutic Exercise to Include: Strength training, Endurance training, Balance training, Coordination, Flexibilty training, Gait and locomotor training, Neuromotor development For the Purpose of:: To increase ROM, To improve muscle performance and motor function, To increase tolerance to activity/condition/position, To improve ability of physical actions for home/community/work/leisure, To improve gait and locomotor functions Thank you for the opportunity to evaluate your patient. For Medicare and Medicare HMO plans, please review the plan of care and approve it. It will need to be FAXED BACK to us at [phone] for Medicare purposes. For Medicare only, by signing this I certify the plan of care. Please let me know if there are questions or concerns regarding this plan of care. Physician Signature: Date:
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
--- NOTE | 2022-11-25 14:42 | HP.SP.REEV ---
History History Date of Eval: 08/30/22 Previous speech therapy: Yes Other Relevant Medical History/Diagnoses/Surgery: Sanaz is a 72 year old female who was seen at [facility] for a speech and language evaluation. Pt was accompanied by her daughter. Pt lives at home with her mother and acts as her caregiver. Pt daughter currently is helping out at their house with ADL's. 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 Pt was treated at [facility] then transferred to [facility]. Pt was on the rehab floor for 2 weeks and received speech therapy during their stay. Pt and her daughter reports no cognitive, speech or language impairments at baseline prior to the cva. Medications related to this diagnosis: , bills, medication, getting things switched around, deficit awareness, Smoking Status: Never smoker Hx Smoking: No Hx Tobacco Use: No Pain Is pain an issue with your current prescribed condition?: No Patient Allergies Allergies Allergies: Allergies No Known Allergies Allergy (Verified 10/11/22 07:40) * Pediatric & Adult patients Adult Objective Cog/Ling/Com Orientation Orientation: Person, Place, Date, Day, Birthdate and Medical Diagnosis Naming [place]: WNL Abstract: Moderate Conversational Tasks Conversational Tasks: Mild Comments: Pt's daughter notes difficulty with using the correct word. Pt will use the opposite word and this causes communication breakdowns (i.e. saying up for down) Recall Repeating Words: Difficulty with memory and mental manipulation tasks. Medication Reading a medication label: Severe Correctly stating instructions of medications: Severe Completing medications independently: Severe Numerical Skills Counting Money: Pt's daughter has taken on nonprofit financial controller use to pt's problems with higher level executive functioning tasks. Pt wishes to work towards regaining independence in this area Telling Time: Pt has difficulty with reading a clock and drawing the hands on a clock Numerical Work Problems: Pt stated she has had great difficulty with mental math, which used to be a strength for her. Problem Solving Simple: Mild Complex: Severe Judgement & Reasoning Judgement/Reasoning: Mild Cognitive Linguistic Supervision/Saftey Awareness of deficits: Mild Being left home alone: WFL Managing medications: Moderate and Severe Managing finances: Moderate and Severe CLQT CLQT CLQT Administered: Yes CLQT: Cognitive Linguistic Quick Test (CLQT) is a criterion - referenced assessment designed for adults between the ages of 18 and 89 with known or suspected neurological dysfuntions. The CLQT is to assess strength and weaknesses in five cognitive domains. Severity ratings are within normal limits, mild, moderate, severe deficits. The subtests are as follows: Date: 08/30/22 Attention Attention: WNL Memory Memory: WNL Executive Functions Executive Functions: WNL Language Language: Mild Visuospatial Skills Visuospatial Skills: WNL Composite Severity Rating Composite Severity Rating: WNL Clock Drawing Severity Rating Clock Drawing Severity Rating: Mild Reference: Neuro-QoL instrument In past 7 days I had to read something several times to understand it: Rarely (once) My thinking was slow: Sometimes (2-3 times) I had to work really hard to pay attention or i would make a mistake: Sometimes (2-3 times) I had trouble concentrating: Sometimes (2-3 times) How much DIFFICULTY do you currently reading & following complex instructions (e.g. directions for new medication: Cannot do planning for & keeping appts that are not part of weekly routine: A lot managing your time to do most of your daily activities: A lot learning new tasks or instructions: Cannot do Neuro-QOL Score Raw Score: 19 T - Score: 34.0 Radiation Oncology Patient Plan Plan Plan: Will recommend Pt for weekly outpatient speech therapy to address mild to mod cognitive impairment characterized by deficits in working memory, word retrieval, executive functioning, problem solving/reasoning, and safety awareness. Pt would benefit from training in compensatory strategies for medication management, finance managment and word retrieval, as well as cognitive training to improve cognitive functioning. Recommendations MBS: No Treatment Warranted: Yes Treatment Warranted: Receptive/ Expressive Language and Cognition Progress Prognosis: Excellent Frequency Frequency: 1-2x /Week Duration: 6 Months Visits in this POC: 10 Goals that are Established Determination:: Goals will be added/modified as deemed necessary and appropriate. Therapy will be discontinued when results of re-evaluation indicate therapy is no longer needed or lack of progress has been documented. Goal #1-5 Goal #1: Pt independently will complete complex problem solving, reasoning, and executive function tasks including but not limited to functional ADL (i.e. managing finances, safety awareness, paying bills, medication management, meal planning, using cellphone) with 90% acc during 2/3 sessions. Goal #2: Pt will identify moments of conversation breakdown and utilize 1 conversational repair strategy during 2/3 opportunities with up to min cues during 3 measured sessions. Goal #3: Pt will participate in an ongoing assessment of her language and cognition to measure progress and recreate appropriate goals. Goal #4: Pt will complete work memory tasks with 60% acc given min cues during 3 measured sessions. Education Patient has Indicated that the Following Identified Educational Needs: None The Patient has indicated that they have no educational or learning abilities that may effect their care.: Yes Patient Instruction Patient Education: Diagnosis and Treatment Plan Person Taught: Patient and Family Teaching Method: Discussion Response to teaching: Verbalize understanding
--- NOTE | 2022-11-25 14:58 | HP.SPREEV_ITS ---
History History Date of Eval: 08/30/22 Attending Doctor: Referring Doctor: Reason for Referral: CVA,COGNITIVE DYSFUNC/EXECTUTIVE FUNCTION. RX HERE Previous speech therapy: Yes Other Relevant Medical History/Diagnoses/Surgery: Sanaz is a 72 year old female who was seen at [facility] for a speech and language evaluation. Pt was accompanied by her daughter. Pt lives at home with her mother and acts as her caregiver. Pt daughter currently is helping out at their house with ADL's. 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 Pt was treated at [facility] then transferred to [facility]. Pt was on the rehab floor for 2 weeks and received speech therapy during their stay. Pt and her daughter reports no cognitive, speech or language impairments at baseline prior to the cva. Medications related to this diagnosis: , bills, medication, getting things switched around, deficit awareness, Smoking Status: Never smoker Hx Smoking: No Hx Tobacco Use: No Pain Is pain an issue with your current prescribed condition?: No Personal Preferred language: [place] Patient Allergies Allergies Allergies: Allergies No Known Allergies Allergy (Verified 10/11/22 07:40) Previous/Current Goals Goals 1-5 Previous Goal #1: Pt independently will complete complex problem solving, reasoning, and executive function tasks including but not limited to functional ADL (i.e. managing finances, safety awareness, paying bills, medication management, meal planning, using cellphone) with 90% acc during 2/3 sessions. Goal 1 Status: GOAL Progressing: Memory and mental manipulation, word order 4:20% acc, increased to 40% with rep & cues When provided a visual and using verbal rehearsal, 20%acc, increased to 80% with repetition Pt group items in a grocery list to assist with memory. With a 1 minute delay, pt recalled 6/8 items Previous Goal #2: Pt will identify moments of conversation breakdown and utilize 1 conversational repair strategy during 2/3 opportunities with up to min cues during 3 measured sessions. Goal 2 Status: GOAL MET: Pt I identified moments of conversational breakdown and repaired them. There were limited number of breakdowns as pt was further into treatment. Pt reported low conversational breakdown issues at home. Previous Goal #3: Pt will participate in an ongoing assessment of her language and cognition to measure progress and recreate appropriate goals. Goal 3 Status: Goal Progressing: Sanaz has completed 2/4 sections of the FAVRES executive functioning assessment and will complete the other 2 sections in tx. Previous Goal #4: Pt will complete work memory tasks with 60% acc given min cues during 3 measured sessions. * Pediatric & Adult patients Adult Subjective Cog/Ling/Com Subjective Cognitive/Linguistic/Communication: Pt's daughter expressed concerns about her mother's ability to manage medications, finances, bills and other tasks of daily living. Pt's daughter stated that her mother often get confused, especially at night and has trouble explaining what she needs to ask for help. During the FAVRES assessment, Sanaz had difficulty forming questions to ask for clarification and need multiple repetition of the task directions. Sanaz stated that when she gets something, it becomes easy, but it can be hard to wrap her head around new concepts and explain what she is trying to say. Both Sanaz and her daughter reports frustration due to communication breakdowns and difficulty with ALDS. Objective Cog/Ling/Com Orientation Orientation: Person, Place, Date, Day, Birthdate and Medical Diagnosis Naming [place]: WNL Abstract: Moderate Conversational Tasks Conversational Tasks: Mild Comments: Pt's daughter notes difficulty with using the correct word. Pt will use the opposite word and this causes communication breakdowns (i.e. saying up for down) Recall Repeating Words: Difficulty with memory and mental manipulation tasks. Medication Reading a medication label: Severe Correctly stating instructions of medications: Severe Completing medications independently: Severe Numerical Skills Counting Money: Pt's daughter has taken on financial retirement plan specialist use to pt's problems with higher level executive functioning tasks. Pt wishes to work towards regaining independence in this area Telling Time: Pt has difficulty with reading a clock and drawing the hands on a clock Numerical Work Problems: Pt stated she has had great difficulty with mental math, which used to be a strength for her. Problem Solving Simple: Mild Complex: Severe Judgement & Reasoning Judgement/Reasoning: Mild Cognitive Linguistic Supervision/Saftey Awareness of deficits: Mild Being left home alone: WFL Managing medications: Moderate and Severe Managing finances: Moderate and Severe CLQT CLQT CLQT Administered: Yes CLQT: Cognitive Linguistic Quick Test (CLQT) is a criterion - referenced assessment designed for adults between the ages of 18 and 89 with known or suspected neurological dysfuntions. The CLQT is to assess strength and weaknesses in five cognitive domains. Severity ratings are within normal l imits, mild, moderate, severe deficits. The subtests are as follows: Date: 08/30/22 Attention Attention: WNL Memory Memory: WNL Executive Functions Executive Functions: WNL Language Language: Mild Visuospatial Skills Visuospatial Skills: WNL Composite Severity Rating Composite Severity Rating: WNL Clock Drawing Severity Rating Clock Drawing Severity Rating: Mild FAVRES FAVRES FAVRES Administered: Yes FAVRES: Functional Assessment of Verbal Reasoning and Executive Strategies is a standardized test of subtle cognitive- communication difficulties designed specifically for patients with acquired brain injuries including CVA and trauma. This functional measure targets aspects of complex communication, complex expression, verbal reasoning and problem solving, and executive functioning. This tests consists of four verbal reasoning tasks: Planning an event, Scheduling, Making a Decision and Building a case. The standard score is a mean of 100 with a standard deviation of 15. A score of 85 or better is considered within normal limits. Date: 11/23/22 Planning an Event Accuracy Standard Score: 3 Rationale Standard Score: 5 Time Standard Score: 6 Comments: Accuracy - did not met cut off, Standard Score - 70 Rationale - met cut off Making a Decision Accuracy Standard Score: 4 Rationale Standard Score: 5 Time Standard Score: 8 Comments: Accuracy - Met cut off Score Rationale - met cut off Reference: Neuro-QoL instrument In past 7 days I had to read something several times to understand it: Rarely (once) My thinking was slow: Sometimes (2-3 times) I had to work really hard to pay attention or i would make a mistake: Sometimes (2-3 times) I had trouble concentrating: Sometimes (2-3 times) How much DIFFICULTY do you currently reading & following complex instructions (e.g. directions for new medication: Cannot do planning for & keeping appts that are not part of weekly routine: A lot managing your time to do most of your daily activities: A lot learning new tasks or instructions: Cannot do Neuro-QOL Score Raw Score: 19 T - Score: 34.0 Radiation Oncology Patient Plan Plan Plan: Will recommend Pt for weekly continued outpatient speech therapy to address mod cognitive impairment characterized by deficits in working memory, word retrieval, verbal reasoning, executive functioning, problem solving/reasoning, and safety awareness. Pt would benefit from continued training in compensatory strategies for medication management, finance management and self monitoring, as well as cognitive training to improve cognitive functioning. Recommendations MBS: No Treatment Warranted: Yes Treatment Warranted: Receptive/ Expressive Language Progress Prognosis: Excellent Frequency Frequency: 1-2x /Week Duration: 2-4 Months Visits in this POC: 10 Goals that are Established Determination:: Goals will be added/modified as deemed necessary and appropriate. Therapy will be discontinued when results of re-evaluation indicate therapy is no longer needed or lack of progress has been documented. Goal #1-5 Goal #1: Pt independently will complete complex problem solving, reasoning, and executive function tasks including but not limited to functional ADL (i.e. managing finances, safety awareness, paying bills, medication management, meal planning, using cellphone) with 90% acc during 2/3 sessions. Goal #2: Pt will complete verbal monologue tasks including but not limited to stating pros/cons, verbal reasoning, problem solving, requesting help, explaining directions, storytelling/retelling with no more than min cues during 2/3 trials across 3 sessions. Goal #3: Pt will complete basic to complex short-term, and working memory tasks with 80% acc independently across 3 measured opportunities. Goal #4: Pt will complete the FAVRES testing Education Patient has Indicated that the Following Identified Educational Needs: None The Patient has indicated that they have no educational or learning abilities that may effect their care.: Yes Patient Instruction Patient Education: Diagnosis and Treatment Plan Person Taught: Patient and Family Teaching Method: Discussion Response to teaching: Verbalize understanding
== END 2023-03-14 19:00 | disposition home or self-care (01) ==
LOC: PT 13:00
PROVIDERS: PCP Family Medicine; Referring Provider Internal Medicine; Visit Provider Family Medicine
DX: I69.318 Other symptoms and signs involving cognitive functions following cerebral infarction (principal)
CPT/HCPCS: 92507; 92523; 97110; 97129; 97130; 97162; 97164; 97530

== ENCOUNTER 2023-04-13 12:00 | Outpatient (RCR) | payer MEDICARE, SELFPAY ==
--- NOTE | 2023-03-18 10:45 | HP.SP.DC ---
ST Discharge Summary Discharged: Discharge: Pt was seen for initial speech/language/cognitive evaluation at [facility] on 08/31/22 s/p cva. Pt attended 20 additional sessions following initial evaluation to target attention, word retrieval, divergent naming, problem solving/reasoning, memory, executive functioning, and safety awareness. Following re-evaluation of Pt?s current level of cognitive function and self-report, Pt deemed appropriate for d/c from speech therapy at this time. Pt discharged from speech therapy caseload on this date, 03/18/23. Thank you for allowing me to participate in the care of your Pt. Will reevaluate at Pt?s request following script from physician.
--- NOTE | 2023-09-05 11:15 | HP.PT.NRP ---
Patient Information Patient Information: DESI ANDERSON was seen in my office for initial evaluation on 03/14/23. The following Plan of Care was established for this patient: POC Established Initial Frequency: 2x /Week Initial Duration: 4 Weeks Anticipated Interventions Patient/Client Instruction: Educate patient on: Benefits of Fitness Program Therapeutic Exercise to Include: Strength training, Endurance training, Body mechanics, Postural training, Neuromotor development, Passive ROM, Active ROM, Marci Exercises and Scapular Strength/Stabilization Manual Therapy Techniques to Include: Mobilization and Soft tissue mobilization TENS: Yes Cryotherapy (ice pack, ice massage): Yes Thermo therapy (hot pack): Yes Ultrasound (thermal/non thermal): Yes Last Seen Last Seen: This patient was last seen in our office . Pertinent comments regarding their Physical therapy will appear below: Patient has not been seen in PT for over 4 months- she is appropriate to be d/c at this time. At this point I will be discontinuing this patient from physical therapy. I would be happy to see this patient again in the future if found appropriate by the physician. Thank you! Lena Watkins DPT Balance/Gait/Functional tests Balance/Special Test Scores Oswestry Neck Score: 16
== END 2023-04-13 19:00 | disposition home or self-care (01) ==
LOC: PT 12:00
PROVIDERS: PCP Family Medicine; Referring Provider Family Medicine; Visit Provider Family Medicine
DX: M50.30 Other cervical disc degeneration, unspecified cervical region (principal)
CPT/HCPCS: 97110; 97162

== ENCOUNTER → 2023-07-13 | Outpatient (CLI) | payer MEDICARE, SELFPAY ==
[2023-07-13 16:17] LABS: Anion Gap 4 (5-15); BUN 15 mg/dL (7-18); BUN/Creat Ratio 14.6 RATIO (10-20); Calcium,Total 9.4 mg/dL (8.5-10.1); Chloride 107 mmol/L (98-107); Cholesterol 204 mg/dL (200); Creatinine, Serum 1.03 mg/dL (0.55-1.02); EST Glomerular Filtration Rate 56 mL/min (>60); Est Glom Filt Rate - Afr Amer 67 mL/min (>60); Glucose 121 mg/dL (74-106); High Density Lipoprotein 56 mg/dL; Potassium 4.3 mmol/L (3.5-5.1); Sodium Level 139 mmol/L (136-145); Triglycerides 265 mg/dL; Very Low Density Lipoprotein 53 mg/dL (5-40)
== END | disposition home or self-care (01) ==
LOC: MFPLAB 11:40
PROVIDERS: PCP Family Medicine; Visit Provider Family Medicine
DX: I10 Essential (primary) hypertension (principal); I63.9 Cerebral infarction, unspecified
CPT/HCPCS: 36415; 80048; 80061

== ENCOUNTER → 2023-08-25 | Outpatient (CLI) | payer MEDICARE, SELFPAY ==
[2023-08-25 15:32] LABS: Absolute Lymphocyte Count 2.07 X10^3/uL (0.83-4.51); Absolute Neutrophil Count 6.2 X10^3/uL (2.0-7.7); Basophil# 0.09 X10^3/uL; Eosinophil# 0.13 X10^3/uL; Eosinophils% 1.4 % (0-5); Hematocrit 40.6 % (37-47); Hemoglobin 13.7 g/dL (12.0-15.0); Lymphocyte # 2.07 X10^3/ul (0.83-4.51); Lymphocyte % 22.5 % (19-41); Mean Corp Hgb Conc 33.7 g/dL (32-36); Mean Corpuscular Hgb 29.4 pg (27.0-32.0); Mean Corpuscular Volume 87.1 fL (81-99); Mean Platelet Vol. 10.4 fl (6.2-12.0); Monocyte# 0.64 X10^3/uL; NRBC Flagged by Analyzer 0 % (0-5); Neutrophil # 6.24 X10^3/uL (2.7-7.7); Neutrophil % 67.8 % (47-70); Platelet Count 256 K/mm3 (150-450); RBC Distribution Width CV 13.6 % (11.6-14.6); Red Blood Count 4.66 M/mm3 (4.2-5.4); White Blood Count 9.2 K/mm3 (4.4-11.0)
[2023-08-25 15:52] LABS: Vitamin B12 376 pg/mL (211-911)
[2023-08-25 15:58] LABS: Erythrocyte Sedimentation Rate 8 mm/hr (0-30)
[2023-08-25 16:05] LABS: AST(SGOT) 16 U/L (15-37); Alanine Aminotransfer ALT/SGPT 18 U/L (13-56); Albumin, Serum 3.6 g/dL (3.2-5.0); Alkaline Phosphatase 101 U/L (45-117); Anion Gap 6 (5-15); BUN 17 mg/dL (7-18); BUN/Creat Ratio 17.2 RATIO (10-20); Calcium,Total 9.2 mg/dL (8.5-10.1); Chloride 105 mmol/L (98-107); Creatinine, Serum 0.99 mg/dL (0.55-1.02); EST Glomerular Filtration Rate 58 mL/min (>60); Est Glom Filt Rate - Afr Amer 71 mL/min (>60); Globulin 3.7 g/dL (2.2-4.2); Glucose 105 mg/dL (74-106); Iron 81 ug/dL (50-170); Magnesium 2.2 mg/dL (1.6-2.6); Potassium 3.7 mmol/L (3.5-5.1); Protein, Total 7.3 g/dL (6.4-8.2); Sodium Level 136 mmol/L (136-145); Thyroid Stim Hormone (TSH) 1.56 uIU/mL (0.358-3.74)
== END | disposition home or self-care (01) ==
LOC: MFPLAB 11:50
PROVIDERS: PCP Family Medicine; Visit Provider Family Medicine
DX: K13.79 Other lesions of oral mucosa (principal); K21.9 Gastro-esophageal reflux disease without esophagitis; E87.8 Other disorders of electrolyte and fluid balance, not elsewhere classified
CPT/HCPCS: 36415; 80053; 82607; 83540; 83735; 84443; 85025; 85652

== ENCOUNTER → 2023-11-28 | Outpatient (CLI) | payer MEDICARE, SELFPAY ==
--- NOTE | 2023-11-28 12:18 | BI_ITS ---
MAMMOGRAPHY - BILATERAL SCREENING 3-D TOMOSYNTHESIS REASON FOR EXAM: Female, 73 years old. SCREENING PERTINENT HISTORY: No significant family history. TECHNIQUE: 2-D mammograms and 3-D Tomosynthesis of the breast (s) were performed. CAD was performed. COMPARISON: 11/23/2022 FINDINGS: The breast composition is heterogeneously dense that can obscure small breast masses. Scattered benign calcifications are seen. No dense spiculated masses or suspicious microcalcifications are identified. No architectural distortion is identified. There is no skin thickening or retraction. There has been no significant change since the prior study. BI/SCRN MAMM (CAD)W/[place] BILAT IMPRESSION: No mammographic signs of malignancy. Routine yearly mammograms recommended. ASSESSMENT CATEGORY: BIRADS Category 1: Negative. A letter regarding these results will be sent to the patient by the facility within 30 days. FOLLOW UP RECOMMENDATION: Yearly follow up mammogram recommended. (A) Approximately 10% of breast cancers are not detected by mammography. A normal mammogram should not delay biopsy of a clinically suspicious abnormality. Electronically Signed: Sea Braga MD at 16:27 EDT ,
== END | disposition home or self-care (01) ==
LOC: OPBI 12:17
PROVIDERS: PCP Family Medicine; Referring Provider Family Medicine; Visit Provider Family Medicine
DX: Z12.31 Encounter for screening mammogram for malignant neoplasm of breast (principal)
CPT/HCPCS: 77063; 77067

== ENCOUNTER → 2024-08-13 | Outpatient (CLI) | payer MEDICARE, SELFPAY ==
[2024-08-13 15:38] LABS: Hematocrit 39.4 % (37-47); Hemoglobin 13.6 g/dL (12.0-15.0); Mean Corp Hgb Conc 34.5 g/dL (32-36); Mean Corpuscular Hgb 30.3 pg (27.0-32.0); Mean Corpuscular Volume 87.8 fL (81-99); Mean Platelet Vol. 10.4 fl (6.2-12.0); Platelet Count 251 K/mm3 (150-450); RBC Distribution Width CV 13.4 % (11.6-14.6); Red Blood Count 4.49 M/mm3 (4.2-5.4); White Blood Count 7.7 K/mm3 (4.4-11.0)
[2024-08-13 18:44] LABS: ALB/GLOB Ratio 1.5 RATIO (0.9-2.4); AST(SGOT) 17 U/L (<=31); Alanine Aminotransfer ALT/SGPT 13 U/L (<=34); Albumin, Serum 4.4 g/dL (3.4-4.8); Alkaline Phosphatase 110 U/L (35-104); Anion Gap 13 (5-15); BUN 14 mg/dL (4-19); Calcium,Total 9.8 mg/dL (7.6-11.0); Carbon Dioxide 22.3 mmol/L (21.0-32.0); Chloride 103 mmol/L (98-108); Cholesterol 222 mg/dL (<=200); Creatinine, Serum 1.01 mg/dL (0.70-1.20); EST Glomerular Filtration Rate 58 (>60); Ferritin 32 ng/mL (22-378); Globulin 2.9 g/dL (2.2-4.2); Glucose 113 mg/dL (70-99); High Density Lipoprotein 54 mg/dL; Low Density Lipoprotein Calc. 106 mg/dL; Protein, Total 7.3 g/dL (5.9-8.4); Sodium Level 139 mmol/L (133-145); Triglycerides 308 mg/dL; Very Low Density Lipoprotein 62 mg/dL (5-40); Vitamin D,25 Hydroxy 56.8 ng/mL (30-100)
[2024-08-13 22:40] LABS: Iron 73 ug/dL (50-170)
[2024-08-17 10:08] LABS: SJOGREN'S Anti-SS-A test < 0.2 AI (0.0-0.9); SJOGREN'S Anti-SS-B test < 0.2 AI (0.0-0.9)
== END | disposition home or self-care (01) ==
LOC: MFPLAB 11:46
PROVIDERS: PCP Family Medicine; Referring Provider Family Medicine; Visit Provider Family Medicine
DX: I10 Essential (primary) hypertension (principal); D64.9 Anemia, unspecified; M81.0 Age-related osteoporosis without current pathological fracture
CPT/HCPCS: 36415; 80053; 80061; 82306; 82728; 83540; 84443; 85027; 86235

== ENCOUNTER → 2024-10-08 | Outpatient (CLI) | payer MEDICARE, SELFPAY ==
[2024-10-11 11:08] LABS: HPV APTIMA, High Risk Negative (Negative)
== END | disposition home or self-care (01) ==
LOC: LABSPEC 15:43
PROVIDERS: PCP Family Medicine; Referring Provider Obstetrics & Gynecology; Visit Provider Obstetrics & Gynecology
DX: R30.0 Dysuria (principal); Z12.4 Encounter for screening for malignant neoplasm of cervix
CPT/HCPCS: 87086; 87088; 87624; 88175; G0145

== ENCOUNTER → 2024-12-17 | Outpatient (CLI) | payer MEDICARE, SELFPAY ==
--- NOTE | 2024-12-17 16:24 | US_ITS ---
PROCEDURE: PELVIC W/ TRANSVAGINAL 12/17/2024 REASON FOR EXAM: DUB TECHNIQUE: PELVIC W/ TRANSVAGINAL COMPARISON: None. FINDINGS: Measurements: Uterus: 6.8 x 3.0 x 3.5 cm for volume of 37.0 mL Endometrial Thickness: 0.4 cm Uterus: Anteverted. There is a heterogeneous myometrial lesion near the body measuring 1.4 x 1.3 x 1.4 cm. Endometrium: Normal echotexture. Right ovary: Not visualized due to shadowing bowel gas Left ovary: Not visualized due to shadowing bowel gas Cul-de-sac: No free intraperitoneal fluid identified. Color Doppler: Normal color flow doppler signal at both ovaries. US/Pelvic w/ Transvaginal IMPRESSION: Leiomyoma at the uterine body measuring 1.4 cm. Reading Location: [id number]
== END | disposition home or self-care (01) ==
PROVIDERS: PCP Family Medicine; Referring Provider Family Medicine; Visit Provider Family Medicine
DX: N93.8 Other specified abnormal uterine and vaginal bleeding (principal)
CPT/HCPCS: 76830; 76856

== ENCOUNTER 2024-12-25 08:23 | Day surgery (SDC) | payer MEDICARE, SELFPAY ==
--- NOTE | 2024-12-20 16:35 | PAT.ANESEVAL ---
Pre-Assessment Diagnosis/Proposed Procedure Planned Operative Procedure(s): COLONOSCOPY, EGD Anesthesia History Anesthesia History - hazard waste handler: Anesthesia History - hazard waste handler Hx Hospitalization No 12/20/24 14:21 Any Problems With Anesthesia No 12/20/24 14:21 Cholinesterase deficiency No 12/20/24 14:21 You/Your Family Experience No 12/20/24 14:21 fever (hyperthermia) with Relationship Recent Exposure to Contagious No 01/01/20 08:12 Disease Does patient have nerve No 12/20/24 14:21 stimulator Patient instructed to have device shut off --Does patient have Pacemaker or ICD? When Was Last Pacemaker Check QUESTION #4 FULL TEXT: You/Your Family Experience fever (hyperthermia) with Anesthesia Last Oral Intake Last Oral intake: Last Oral Intake NPO since Meds taken in AM with sips of water? Meds patient instructed to take am of surgery PONV PONV - hazard waste handler: PONV - hazard waste handler Female Yes 12/20/24 14:21 HX of Motion Sickness No 12/20/24 14:21 HX of N/V After Surgery No 12/20/24 14:21 Non-Smoker Yes 12/20/24 14:21 Duration of Surgery greater No 12/20/24 14:21 than 60 minutes Number of Risk Factors 2 12/20/24 14:21 PONV Score Moderate Risk 12/20/24 14:21 Height & Weight Height & Weight: Anesthesia: Height & Weight Height 4 ft 11 in 12/03/24 13:54 Respiratory Assessment Respiratory Assessment - hazard waste handler: Respiratory Tract Infection Hx - hazard waste handler Hx Respiratory Tract Infection No 12/20/24 14:21 STOP Sleep Apnea STOP Sleep Apnea - hazard waste handler: STOP Sleep Apnea - hazard waste handler Hx Hypertension Yes: PER PT, CONTROLLED ON 12/20/24 14:21 MEDS Hx Sleep Apnea No 12/20/24 14:21 CPAP BIPAP Do you snore loudly (louder Yes 12/20/24 14:21 than talking or can be heard Do you often feel tired/ No 12/20/24 14:21 fatigued/ sleepy during daytime? Has anyone observed you stop No 12/20/24 14:21 breathing during sleep? STOP Results Positive 12/20/24 14:21 QUESTION #5 FULL TEXT : Do you snore loudly (louder than talking or can be heard through closed doors)? 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 Specify any problems Hx of Preganancy in last 3 No 12/20/24 14:21 Months Nurse Filling Out Transfusion SCOTT 12/20/24 14:21 & Questions: Date: 12/20/24 12/20/24 14:21 Time: 14:23 12/20/24 14:21 Patient unable to answer at this time (ie. confused, unrespo /Reproduction History /Reproductive History - hazard waste handler: /Reproductive Hx- hazard waste handler Hx Now No 12/20/24 14:21 Gestational Age (in weeks): EDC: Hx Hx Para Hx Section SAB No 12/20/24 14:21 [facility]LY [facility] Medical History (Updated 12/20/24 @ 14:31 by Parisa Card) Wears glasses Depression High cholesterol Stroke/cerebrovascular accident History of seizures as a child History of hiatal hernia Gastric reflux Shortness of breath on exertion Hoarseness Leg cramps Non-smoker Cardiology follow-up encounter History of irregular heartbeat Cervical cancer screening Hypertriglyceridemia Seasonal allergies Anxiety Hiatal hernia with GERD Tachycardia Allergic rhinitis Dyslipidemia Left atrial enlargement Osteopenia after menopause 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) Personal history of colonic polyps Hemorrhoids Abdominal pain Hypertension Home Medications ?Medication ?Instructions ?Recorded ?Last Taken ?Type calcium 600 mg (as carbonate)-vit 1 tab PO TID 12/24/19 Unknown History D3 10 mcg (400 unit)-minerals tablet fexofenadine 180 mg tablet 180 mg PO DAILY PRN allergies' 12/24/19 Unknown History fluticasone propionate 50 2 spray intranasal DAILY PRN 12/24/19 Unknown History mcg/actuation nasal Allergies spray,suspension omeprazole 40 mg capsule,delayed 40 mg PO DAILY GERD 12/24/19 Unknown History release amlodipine 2.5 mg tablet 7.5 mg (3 x 2.5 mg) PO QHS #90 tabs 08/27/22 Unknown Rx aspirin 81 mg chewable tablet 81 mg PO DAILY Heart health #30 08/27/22 Unknown Rx tabs atorvastatin 40 mg tablet 40 mg PO QHS Cholestrol #30 tabs 08/27/22 Unknown Rx magnesium chloride 64 mg 64 mg PO DAILY #30 tabs 08/27/22 Unknown Rx (magnesium chloride) tablet potassium chloride 20 mEq 20 meq PO BREAKFAST #30 tabs 08/27/22 Unknown Rx tablet,extended release citalopram 10 mg tablet 10 mg PO QDAY 10/08/24 Unknown History losartan 50 mg tablet 50 mg PO QDAY 10/08/24 Unknown History atenolol 25 mg tablet 25 mg PO 1800 12/20/24 Unknown History denosumab 60 mg/mL subcutaneous 60 mg subcut .Q6MO 12/20/24 Unknown History syringe (Prolia) Allergy/AdvReac Type Severity Reaction Status Date / Time No Known Allergies Allergy Verified 12/20/24 14:16 Family History Sister Diabetes Mother CVA (cerebral vascular accident) High cholesterol Hypertension Brother High cholesterol Father Kidney disease Surgical History H/O thumb surgery H/O LEEP Hx of right breast biopsy Hx of colonoscopy History of esophagogastroduodenoscopy (EGD) History of bunionectomy of both great toes Hx of oral surgery Social History household members: family housing: house pets and animals: Yes (1 dog and 1 cat) Smoking Status: Never smoker alcohol intake: never substance use type: does not use caffeine: No what type of physical activity do you participate in: none frequency: does not exercise seatbelt use: always do you feel safe at home: Yes additional social history: Audit: Pertinent Findings Pertinent Findings EKG Perinent findings: 09/23/2022: Normal sinus rhythm, normal ECG. Additional pertinent findings: Per cardiology visit 08/16/2022: Previous suspicion of supraventricular tach arrhythmia that is suspected to have abated spontaneously. No documentation of SVT on EKG, with only normal EKG findings as recently as 09/23/2022. Previous GEMMA with normal LV size and function at 60 to 65%. Recommendation Anesthesia Recommendation Anesthesia recommendation: OPTIMIZED for anesthesia (Patient with abnormal mets, and previously normal EKG and echo findings. Will encourage to follow-up with her pipe stem repairer outpatient.)
[2024-12-25] VITALS (9 sets, daily range): BP systolic 99–129; BP diastolic 55–73; PULSE 56–73; RESP 16; TEMP 36.3–36.6; O2SAT 96–99; BMI 32.7
[2024-12-25] MEDS: Lactated Ringers 1,000 ML 15 ML IV (09:05)
--- NOTE | 2024-12-25 09:15 | PRE.ANES_ITS ---
ASA Classification* ASA Classification ASA Classification: 3 Assessment & Plan Anesthesia* Anesthesia Assessment Anesthesia Assessment: Discussed sedation and/or anesthesia options, risks, benefits, and alternatives with patient/parents/legal guardian/POA. Questions invited. The patient/parents/legal guardian/POA seems to understand and agrees to proceed with anesthesia plan. Reviewed the physical assessment, medical history, allergy history and patient home medications list prior to surgery/procedure/anesthetic and documented any changes. Performed airway and anesthesia risk assessments. Anesthesia Type Anesthesia Type: MAC History Source History Obtained from:: Patient and Chart Anesthesia Focused Assessment* Temperature: 97.3 F Pulse Rate: 73 Blood Pressure: 129/73 Respiratory Rate: 16 Pulse Ox: 99 Oxygen Delivery Method: Room Air Airway Assessment Mouth opens: >3 cm Mallampati Score: II Teeth Condition: Caps/Crowns (Patient has several crowns. They are all tight.) Neck Range of motion (ROM): Limited ROM (Slight Decrease) Labs Anesthesia Preop lab: CBC WBC 7.7 K/mm3 (4.4-11.0) 08/13/24 11:47 08/13/24 RBC 4.49 M/mm3 (4.2-5.4) 08/13/24 11:47 08/13/24 Hgb 13.6 g/dL (12.0-15.0) 08/13/24 11:47 08/13/24 Hct 39.4 % (37-47) 08/13/24 11:47 08/13/24 Plt Count 251 K/mm3 (150-450) 08/13/24 11:47 08/13/24 CHEMISTRY Potassium 4.0 mmol/L (3.3-5.1) 08/13/24 15:45 08/13/24 Sodium 139 mmol/L (133-145) 08/13/24 15:45 08/13/24 Magnesium 2.2 mg/dL (1.6-2.6) 08/25/23 11:50 08/25/23 Phosphorus 3.1 mg/dL (2.5-4.9) 12/24/22 11:15 12/24/22 BUN 14 mg/dL (4-19) 08/13/24 15:45 08/13/24 Creatinine 1.01 mg/dL (0.70-1.20) 08/13/24 15:45 08/13/24 Glucose 113 mg/dL (70-99) H 08/13/24 15:45 08/13/24 POC Glucose 104 mg/dL (74-106) 08/02/22 13:31 08/02/22 TSH 2.200 uIU/mL (0.300-4.200) 08/13/24 15:45 07/28 12/21 COAG PT 12.7 SECONDS (11.7-14.9) 09/23/22 15:10 Pre-Assessment Diagnosis/Proposed Procedure Planned Operative Procedure(s): COLONOSCOPY, EGD Anesthesia History Anesthesia History - contemporary or modern dancer: Anesthesia History - contemporary or modern dancer Hx Hospitalization No 12/20/24 14:21 Any Problems With Anesthesia No 12/20/24 14:21 Cholinesterase deficiency No 12/20/24 14:21 You/Your Family Experience No 12/20/24 14:21 fever (hyperthermia) with Relationship Recent Exposure to Contagious No 12/25/24 09:05 Disease Does patient have nerve No 12/20/24 14:21 stimulator Patient instructed to have device shut off --Does patient have Pacemaker No 12/25/24 09:05 or ICD? When Was Last Pacemaker Check QUESTION #4 FULL TEXT: You/Your Family Experience fever (hyperthermia) with Anesthesia Last Oral Intake Last Oral intake: Last Oral Intake NPO since 02:00 12/25/24 09:05 Meds taken in AM with sips of Yes 12/25/24 09:05 water? Meds patient instructed to losartan 12/25/24 09:05 take am of surgery Any additional information?: Yes NPO since: 07:00 (Patient took losartan at 7 AM.) Meds taken in AM with sips of water?: Yes Meds patient instructed to take am of surgery: Losartan PONV PONV - contemporary or modern dancer: PONV - contemporary or modern dancer Female Yes 12/20/24 14:21 HX of Motion Sickness No 12/20/24 14:21 HX of N/V After Surgery No 12/20/24 14:21 Non-Smoker Yes 12/20/24 14:21 Duration of Surgery greater No 12/20/24 14:21 than 60 minutes Number of Risk Factors 2 12/20/24 14:21 PONV Score Moderate Risk 12/20/24 14:21 Height & Weight Height & Weight: Anesthesia: Height & Weight Height 5 ft 12/25/24 09:05 Weight: 76 kg 12/25/24 09:05 Body Mass Index (BMI) 32.7 12/25/24 09:05 Respiratory Assessment Respiratory Assessment - contemporary or modern dancer: Respiratory Tract Infection Hx - contemporary or modern dancer Hx Respiratory Tract Infection No 12/20/24 14:21 STOP Sleep Apnea STOP Sleep Apnea - contemporary or modern dancer: STOP Sleep Apnea - contemporary or modern dancer Hx Hypertension Yes: PER PT, CONTROLLED ON 12/20/24 14:21 MEDS Hx Sleep Apnea No 12/20/24 14:21 CPAP BIPAP Do you snore loudly (louder Yes 12/20/24 14:21 than talking or can be heard Do you often feel tired/ No 12/20/24 14:21 fatigued/ sleepy during daytime? Has anyone observed you stop No 12/20/24 14:21 breathing during sleep? STOP Results Positive 12/20/24 14:21 QUESTION #5 FULL TEXT : Do you snore loudly (louder than talking or can be heard through closed doors)? 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 Specify any problems Hx of Preganancy in last 3 No 12/20/24 14:21 Months Nurse Filling Out Transfusion MGRIFFITH 12/20/24 14:21 & Questions: Date: 12/20/24 12/20/24 14:21 Time: 14:23 12/20/24 14:21 Patient unable to answer at this time (ie. confused, unrespo /Reproduction History /Reproductive History - contemporary or modern dancer: /Reproductive Hx- contemporary or modern dancer Hx Now No 12/20/24 14:21 Gestational Age (in weeks): EDC: Hx Hx Para Hx Section SAB No 12/20/24 14:21 Active Medications Active Medications: Current Medications Generic Name Dose Route Start Last Admin Trade Name Freq PRN Reason Stop Dose Admin Lactated Ringer's 1,000 mls @ 15 mls/hr 12/25/24 08:45 12/25/24 09:05 IV 15 mls/hr .Q48H KAYCEE Administration PFSH Medical History (Updated 12/25/24 @ 09:[address] 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) Personal history of colonic polyps Hemorrhoids Abdominal pain Hypertension Home Medications ?Medication ?Instructions ?Recorded ?Last Taken ?Type calcium 600 mg (as carbonate)-vit 1 tab PO TID 0 Unknown History D3 10 mcg (400 unit)-minerals tablet fexofenadine 180 mg tablet 180 mg PO DAILY PRN allergi es' 12/24/19 Unknown History fluticasone propionate 50 2 spray intranasal DAILY PRN 12/24/19 Unknown History mcg/actuation nasal Allergies spray,suspension omeprazole 40 mg capsule,delayed 40 mg PO DAILY GERD 0 12/24/19 Unknown History release amlodipine 2.5 mg tablet 7.5 mg (3 x 2.5 mg) PO QHS # 90 tabs 08/27/22 Unknown Rx aspirin 81 mg chewable tablet 81 mg PO DAILY Heart hea lth #30 08/27/22 12/24/24 Rx tabs atorvastatin 40 mg tablet 40 mg PO QHS Cholestrol #30 tabs 08/27/22 Unknown Rx magnesium chloride 64 mg 64 mg PO DAILY #30 tabs 07/30 06/21 Unknown Rx (magnesium chloride) tablet potassium chloride 20 mEq 20 meq PO BREAKFAST #30 tabs 08/27/22 Unknown Rx tablet,extended release citalopram 10 mg tablet 10 mg PO QDAY 10/08/24 Unkno wn History losartan 50 mg tablet 50 mg PO QDAY 10/08/2412/25 07:00 History atenolol 25 mg tablet 25 mg PO 1800 12/20/2412/24 History denosumab 60 mg/mL subcutaneous 60 mg subcut .Q6MO Unknown History syringe (Prolia) Allergy/AdvReac Type Severity Reaction Status Date / Time No Known Allergies Allergy Verified 12/25/24 09:02 Family History Sister Diabetes Mother CVA (cerebral vascular accident) High cholesterol Hypertension Brother High cholesterol Father Kidney disease Surgical History H/O thumb surgery H/O LEEP Hx of right breast biopsy Hx of colonoscopy History of esophagogastroduodenoscopy (EGD) History of bunionectomy of both great toes Hx of oral surgery Social History household members: family housing: house pets and animals: Yes (1 dog and 1 cat) Smoking Status: Never smoker alcohol intake: never substance use type: does not use caffeine: No what type of physical activity do you participate in: none frequency: does not exercise seatbelt use: always do you feel safe at home: Yes additional social history: Review of Systems (Anesthesia) ROS Narrative System reviewed and no additional complaints, except as documented.
--- NOTE | 2024-12-25 09:19 | PCM.HP.STD ---
HPI - General General Date of Admission: 12/25/24 Date of Service: 12/25/24 Chief Complaint: EGD/Colonoscopy HPI Narrative The patient is a 74-year-old female in need of a surveillance colonoscopy. She also requested EGD. She states that she does have chronic heartburn as well as borborygmi that is quite audible. We discussed the details of the planned procedure and she wishes to proceed. This will be scheduled in a timely manner. 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) Personal history of colonic polyps Hemorrhoids Abdominal pain Hypertension Home Medications ?Medication ?Instructions ?Recorded ?Last Taken ?Type calcium 600 mg (as carbonate)-vit 1 tab PO TID 12/24/19 Unknown History D3 10 mcg (400 unit)-minerals tablet fexofenadine 180 mg tablet 180 mg PO DAILY PRN allergies' 12/24/19 Unknown History fluticasone propionate 50 2 spray intranasal DAILY PRN 12/24/19 Unknown History mcg/actuation nasal Allergies spray,suspension omeprazole 40 mg capsule,delayed 40 mg PO DAILY GERD 12/24/19 Unknown History release amlodipine 2.5 mg tablet 7.5 mg (3 x 2.5 mg) PO QHS #90 tabs 08/27/22 Unknown Rx aspirin 81 mg chewable tablet 81 mg PO DAILY Heart health #30 08/27/22 12/24/24 Rx tabs atorvastatin 40 mg tablet 40 mg PO QHS Cholestrol #30 tabs 08/27/22 Unknown Rx magnesium chloride 64 mg 64 mg PO DAILY #30 tabs 08/27/22 Unknown Rx (magnesium chloride) tablet potassium chloride 20 mEq 20 meq PO BREAKFAST #30 tabs 08/27/22 Unknown Rx tablet,extended release citalopram 10 mg tablet 10 mg PO QDAY 10/08/24 Unknown History losartan 50 mg tablet 50 mg PO QDAY 10/08/24 12/25/24 07:00 History atenolol 25 mg tablet 25 mg PO 1800 12/20/24 12/24/24 History denosumab 60 mg/mL subcutaneous 60 mg subcut .Q6MO 12/20/24 Unknown History syringe (Prolia) Allergy/AdvReac Type Severity Reaction Status Date / Time No Known Allergies Allergy Verified 12/25/24 09:02 Family History Sister Diabetes Mother CVA (cerebral vascular accident) High cholesterol Hypertension Brother High cholesterol Father Kidney disease Surgical History H/O thumb surgery H/O LEEP Hx of right breast biopsy Hx of colonoscopy History of esophagogastroduodenoscopy (EGD) History of bunionectomy of both great toes Hx of oral surgery Social History household members: family housing: house pets and animals: Yes (1 dog and 1 cat) Smoking Status: Never smoker alcohol intake: never substance use type: does not use caffeine: No what type of physical activity do you participate in: none frequency: does not exercise seatbelt use: always do you feel safe at home: Yes additional social history: Vital Signs Vital Signs Vital Signs: 12/25/24 09:05 12/25/24 09:05 Temperature 97.3 F L Temperature Source Temporal Pulse Rate 73 Respiratory Rate 16 Respiratory Pattern Normal Blood Pressure 129/73 H Blood Pressure Mean 91 Blood Pressure Source Monitor Blood Pressure Position Semi-Fowlers Blood Pressure Location Left Arm Pulse Ox 99 Oxygen Delivery Method Room Air Weight Weight: 167 lb 8.821 oz Body Mass Index (BMI) 32.7 Physical Exam Const alert, oriented x3 and no apparent distress Assessment & Plan Assessment/Plan (1) Hiatal hernia with GERD: PLAN: Plan EGD and colonoscopy to be performed today.
--- NOTE | 2024-12-25 09:30 | EGD_PTH ---
PATIENT: DESI ANDERSON LOC: EN U#:[id number] AGE/SX: 74/F ROOM: RE12/25/[address]: Dr. Adama Carbajal MD : 1950 BED: DIS: 12/25/2024 SPEC #: [id number] RECD: 12/25/24 11:12 STATUS: KEVIN VENUS #: [id number] ARNOL: 12/25/24 09:[address]: Adama Carbajal DEPT: SURGICAL PATHOLOGY RECD BY: Roscoe Gray ENTERED: 12/25/24 12:48 SP TYPE: EGD BIOPSY OT DR: Dr. Tony Lynn MD Tissues: A - Gastric mucous membrane B - Esophagus, NOS C - Sigmoid colon biopsy Procedures: Immunohistochemical Stains Surgery Specimen Level IV HEADER OPERATION: Colonoscopy with polypectomy, EGD with biopsy PRE-OP DIAGNOSIS: Hiatal hernia with GERD TISSUE SUBMITTED: A- Antrum biopsy, B- GE junction biopsy, C- Sigmoid polyp MICROSCOPIC DIAGNOSIS A. Stomach, antrum, biopsy: * Antral mucosa with mild chronic inflammation * No morphologic evidence of Helicobacter pylori organisms on H&E or immunostained sections B. GE junction, biopsy: * Benign squamous epithelium * Oxyntocardiac type mucosa with mild chronic inflammation, negative for goblet cells C. Sigmoid colon, polyp, biopsy: * Tubular adenoma MICROSCOPIC DESCRIPTION Slides are reviewed. All matched controls reacted appropriately. These tests were developed and their performance characteristics determined by [facility]. They may not have been cleared or approved by the [place]. Food and Drug Administration. The FDA has determined that such clearance or approval is not necessary. The above immunohistochemical/dualISH markers are viewed by the Pathologist. GROSS DESCRIPTION A. Received in fixative is one container labeled with the patient's name and designated Antrum biopsy. The specimen consists of three irregular fragments of light marsh soft tissue that in aggregate measure 0.2 to 0.5 cm. The specimen is totally submitted in one cassette. B. Received in fixative is one container labeled with the patient's name and designated GE junction biopsy. The specimen consists of one irregular fragment of light marsh soft tissue that measures 0.3 cm. The specimen is totally submitted in one cassette. C. Received in fixative is one container labeled with the patient's name and designated Sigmoid polyp. The specimen consists of2 marsh tissue fragments, 0.4 cm and 0.6 cm and a 0.9 x 0.8 x 0.7 cm pink-red friable and granular polyp. The possible resection margin is inked black and the polyp is serially sectioned. Entirely submitted in 2 cassettes as follows: C1: 2 tissue fragmentsC2: Polyp MO 12/25/2024 CPT:[id number]
--- NOTE | 2024-12-25 10:18 | OP.EGD_ITS ---
Patient Name: Sanaz Howell Procedure Date: 12/25/2024 9:22 AM Date of : 1950 Age: 74 Procedure: Upper GI endoscopy Indications: Heartburn Providers: Admaa Carbajal MD Referring MD: Velasquez Lynn Medicines: Monitored Anesthesia Care Patient Profile: Refer to note in patient chart for documentation of history and physical. Patient has symptoms of chronic heartburn. Complications: No immediate complications. Estimated blood loss: Minimal. Procedure: Pre-Anesthesia Assessment: - Prior to the procedure, a History and Physical was performed, and patient medications and allergies were reviewed. The patient's tolerance of previous anesthesia was also reviewed. The risks and benefits of the procedure and the sedation options and risks were discussed with the patient. All questions were answered, and informed consent was obtained. Prior Anticoagulants: The patient has taken no anticoagulant or antiplatelet agents. ASA Grade Assessment: II - A patient with mild systemic disease. After reviewing the risks and benefits, the patient was deemed in satisfactory condition to undergo the procedure. After obtaining informed consent, the endoscope was passed under direct vision. Throughout the procedure, the patient's blood pressure, pulse, and oxygen saturations were monitored continuously. The gastroscope was introduced through the mouth, and advanced to the duodenal bulb. The upper GI endoscopy was accomplished without difficulty. The patient tolerated the procedure well. Moderate Sedation: See the other procedure note for documentation of moderate sedation with intraservice time. Scope In: 9:36:12 AM Scope Out: 9:46:08 AM Total Procedure Duration Time 0 hours 9 minutes 56 seconds Findings: No gross lesions were noted in the duodenal bulb. A few 7 mm semi-sessile polyps with no bleeding and no stigmata of recent bleeding were found in the gastric antrum. The polyp was removed with a cold biopsy forceps. Resection and retrieval were complete. Verification of patient identification for the specimen was done by the nurse using the patient's name, date and medical record number. Estimated blood loss was minimal. A medium-sized hiatal hernia was present. No gross lesions were noted in the entire esophagus. Mucosa was biopsied with a cold forceps for histology randomly at the gastroesophageal junction. The exam was otherwise without abnormality. Impression: - No gross lesions in the duodenal bulb. - A few gastric polyps. Resected and retrieved. - Medium-sized hiatal hernia. - No gross lesions in the entire esophagus. Biopsied. - The examination was otherwise normal. Recommendation: - Await pathology results. - Continue present medications. Procedure Code(s): --- Professional --- 15457, Esophagogastroduodenoscopy, flexible, transoral; with biopsy, single or multiple Diagnosis Code(s): --- Professional --- K31.7, Polyp of stomach and duodenum R12, Heartburn K44.9, Diaphragmatic hernia without obstruction or gangrene CPT copyright 2021 [employer]. All rights reserved. The codes documented in this report are preliminary and upon artifacts conservator review may be revised to meet current compliance requirements. Adama Carbajal MD 12/25/2024 10:18:15 AM This report has been signed electronically. Number of Addenda: 0 Note Initiated On: 12/25/2024 9:22 AM
--- NOTE | 2024-12-25 10:18 | OP.PROVAT_ITS ---
12/25/2024 Velasquez Lynn [address] [place] [address] Re : Upper GI endoscopy procedure for Sanaz Howell Dear Dr. Lynn This procedure was performed on Wednesday, December 25, 2024. My impressions and recommendations are as follows: Impressions : - No gross lesions in the duodenal bulb. - A few gastric polyps. Resected and retrieved. - Medium-sized hiatal hernia. - No gross lesions in the entire esophagus. Biopsied. - The examination was otherwise normal. Recommendations : - Await pathology results. - Continue present medications. My findings are described in the full procedure note, which is enclosed. If I can be of further assistance, please feel free to contact me at . Sincerely, Adama Carbajal MD 12/25/2024 10:18:15 AM This report has been signed electronically.
--- NOTE | 2024-12-25 10:21 | PCM.POST.ANE ---
Anesthesia: Postop Eval I Current Vital Signs Temperature: 97.9 F Pulse Rate: 60 Blood Pressure: 99/58 Respiratory Rate: 16 Pulse Ox: 97 Oxygen Delivery Method: Room Air Assessment Airway patent: Yes Spontaneous unlabored respirations: Yes Mental status: Asleep nausea: No Vomiting: No Anesthesia Complication: No Fluid Hydration Crystalloid volume administer (ml): 600 Total IV fluid infused: 600 Progress Note Anesthesia document: Postop Eval 1 completed: No
--- NOTE | 2024-12-25 10:22 | OP.COLON_ITS ---
Patient Name: Sanaz Howell Procedure Date: 12/25/2024 9:46 AM Date of : 1950 Age: 74 Procedure: Colonoscopy Indications: Screening for colorectal malignant neoplasm Providers: Adama Carbajal MD Referring MD: Velasquez Lynn Medicines: Monitored Anesthesia Care Patient Profile: Refer to note in patient chart for documentation of history and physical. Patient has symptoms of chronic heartburn. Refer to note in patient chart for documentation of history and physical. Last Colonoscopy: none. The patient's first colonoscopy is today. Complications: No immediate complications. Estimated blood loss: None. Procedure: Pre-Anesthesia Assessment: - Prior to the procedure, a History and Physical was performed, and patient medications and allergies were reviewed. The patient's tolerance of previous anesthesia was also reviewed. The risks and benefits of the procedure and the sedation options and risks were discussed with the patient. All questions were answered, and informed consent was obtained. Prior Anticoagulants: The patient has taken no anticoagulant or antiplatelet agents. ASA Grade Assessment: II - A patient with mild systemic disease. After reviewing the risks and benefits, the patient was deemed in satisfactory condition to undergo the procedure. After I obtained informed consent, the scope was passed under direct vision. Throughout the procedure, the patient's blood pressure, pulse, and oxygen saturations were monitored continuously. The colonoscope was introduced through the anus and advanced to the cecum, identified by appendiceal orifice and ileocecal valve. The ileocecal valve, appendiceal orifice, and rectum were photographed. The entire colon was well visualized. The colonoscopy was performed without difficulty. The patient tolerated the procedure well. The quality of the bowel preparation was adequate. Moderate Sedation: See the other procedure note for documentation of moderate sedation with intraservice time. Scope In: 9:49:13 AM Scope Withdrawal Time 0 hours 10 minutes 15 seconds Scope Out: 10:11:00 AM Total Procedure Duration Time 0 hours 21 minutes 47 seconds Findings: The perianal and digital rectal examinations were normal. A few small-mouthed diverticula were found in the sigmoid colon. A 10 mm polyp was found in the sigmoid colon. The polyp was pedunculated. The polyp was removed with a hot snare. Resection and retrieval were complete. Verification of patient identification for the specimen was done by the nurse using the patient's name, date and medical record number. Estimated blood loss was minimal. Non-bleeding hemorrhoids were found during retroflexion. The hemorrhoids were moderate. Impression: - Diverticulosis in the sigmoid colon. - One 10 mm polyp in the sigmoid colon, removed with a hot snare. Resected and retrieved. - Non-bleeding hemorrhoids. Recommendation: - Discharge patient to home (ambulatory). - High fiber diet. - Await pathology results. - Repeat colonoscopy in 3 - 5 years for surveillance. - Return to my office PRN. - Continue present medications. Procedure Code(s): --- Professional --- 69925, Colonoscopy, flexible; with removal of tumor(s), polyp(s), or other lesion(s) by snare technique Diagnosis Code(s): --- Professional --- Z12.11, Encounter for screening for malignant neoplasm of colon K64.9, Unspecified hemorrhoids K57.30, Diverticulosis of large intestine without perforation or abscess without bleeding D12.5, Benign neoplasm of sigmoid colon CPT copyright 2021 [employer]. All rights reserved. The codes documented in this report are preliminary and upon medication reconciliation technician review may be revised to meet current compliance requirements. Adama Carbajal MD 12/25/2024 10:22:07 AM This report has been signed electronically. Number of Addenda: 0 Note Initiated On: 12/25/2024 9:46 AM
--- NOTE | 2024-12-25 10:22 | OP.PROVAT_ITS ---
12/25/2024 Velasquez Lynn [address] [place] [address] Re : Colonoscopy procedure for Sanaz Howell Dear Dr. Lynn This procedure was performed on Wednesday, December 25, 2024. My impressions and recommendations are as follows: Impressions : - Diverticulosis in the sigmoid colon. - One 10 mm polyp in the sigmoid colon, removed with a hot snare. Resected and retrieved. - Non-bleeding hemorrhoids. Recommendations : - Discharge patient to home (ambulatory). - High fiber diet. - Await pathology results. - Repeat colonoscopy in 3 - 5 years for surveillance. - Return to my office PRN. - Continue present medications. My findings are described in the full procedure note, which is enclosed. If I can be of further assistance, please feel free to contact me at . Sincerely, Adama Carbajal MD 12/25/2024 10:22:07 AM This report has been signed electronically.
== END 2024-12-25 11:08 | disposition home or self-care (01) ==
LOC: EN 08:28 → AC 08:30
PROVIDERS: PCP Family Medicine; Referring Provider Family Medicine; Visit Provider Surgery
PROC: 0DJD8ZZ Inspection of Lower Intestinal Tract, Via Natural or Artificial Opening Endoscopic (ICD-10-PCS; CPT 45378; principal; 2024-12-25 09:25)
DX: Z12.11 Encounter for screening for malignant neoplasm of colon (principal); D12.5 Benign neoplasm of sigmoid colon; K57.30 Diverticulosis of large intestine without perforation or abscess without bleeding; K64.9 Unspecified hemorrhoids; K29.50 Unspecified chronic gastritis without bleeding; K31.7 Polyp of stomach and duodenum; K44.9 Diaphragmatic hernia without obstruction or gangrene; K21.9 Gastro-esophageal reflux disease without esophagitis; I10 Essential (primary) hypertension; E78.00 Pure hypercholesterolemia, unspecified; Z79.82 Long term (current) use of aspirin; Z79.899 Other long term (current) drug therapy; Z86.0100 Personal history of colon polyps, unspecified
CPT/HCPCS: 45385; 43239; 88305; 88342; J2405

== ENCOUNTER → 2025-01-02 | Outpatient (CLI) | payer MEDICARE, SELFPAY ==
--- NOTE | 2025-01-02 12:18 | BI_ITS ---
EXAM: SCRN MAMM (CAD)W/LINWOOD BILAT DATE: 01/02/2025 CLINICAL HISTORY: F, Age 74 y/o , ANNUAL SCREENING TECHNIQUE: SCRN MAMM (CAD)W/LINWOOD BILAT COMPARISON: Prior exam(s) were compared FINDINGS: TISSUE DENSITY: The breasts are heterogeneously dense, which may obscure small masses. Bilateral Breast Mammographic Findings: No suspicious masses, calcifications or other abnormalities are identified. BI/SCRN MAMM (CAD)W/LINWOOD BILAT IMPRESSION: No mammographic evidence of malignancy in either breast OVERALL FINAL ASSESSMENT BI-RADS 1: NEGATIVE. RECOMMENDATION: Routine annual follow-up in 1 Year A letter with findings and recommendations will be mailed to the patient. Reading Location: [id number]
--- NOTE | 2025-01-02 12:26 | BD_ITS ---
PROCEDURE: DEXA BONE DENSITY STUDY 01/02/2025 REASON FOR EXAM: F, age 74 y/o . Postmenopausal. TECHNIQUE: DEXA BONE DENSITY STUDY COMPARISON: Prior study dated November 23, 2022. FINDINGS: BMD and T-SCORES Lumbar spine: 0.874 g/cm2, T-score -1.6 Levels: L1 through L4 Change from prior: Loss of 0.7%. Left femoral neck: 0.570 g/cm2, T-score -2.5 Femoral neck comparison data not recommended for monitoring change. Left total hip: 0.875 g/cm2, T-score -0.5 Change from prior: Loss of 4%. Right femoral neck: 0.53 cm g/cm2, T-score -2.8 Femoral neck comparison data not recommended for monitoring change. Right total hip: 0.811 g/cm2, T-score -1.1 Change from prior: Loss of 0.2%. The World Health Organization has defined the following categories based on bone density: Normal bone density: T-score equal to or greater than -1.0 Osteopenia: T-score between -1.0 and -2.5 Osteoporosis: T-score equal to or less than -2.5 The patient does meet the pharmacological treatment recommendations for prevention of osteoporosis. BD/Dexa Bone Density Study IMPRESSION: OSTEOPOROSIS. Recommend follow-up as clinically warranted. Reading Location: [id number]
== END | disposition home or self-care (01) ==
LOC: OPBD 12:15
PROVIDERS: PCP Family Medicine; Referring Provider Family Medicine; Visit Provider Family Medicine
DX: M81.0 Age-related osteoporosis without current pathological fracture (principal); Z12.31 Encounter for screening mammogram for malignant neoplasm of breast
CPT/HCPCS: 77063; 77067; 77080

== ENCOUNTER → 2025-04-18 | Outpatient (CLI) | payer MEDICARE, SELFPAY ==
[2025-04-18 17:44] LABS: Hematocrit 33.5 % (37-47); Hemoglobin 10.9 g/dL (12.0-15.0); Mean Corp Hgb Conc 32.5 g/dL (32-36); Mean Corpuscular Volume 79.6 fL (81-99); Mean Platelet Vol. 10.2 fl (6.2-12.0); Platelet Count 251 K/mm3 (150-450); RBC Distribution Width CV 14.6 % (11.6-14.6); RBC Distribution Width SD 42.1 fl (35.1-43.9); Red Blood Count 4.21 M/mm3 (4.2-5.4); White Blood Count 7.8 K/mm3 (4.4-11.0)
[2025-04-18 18:29] LABS: AST(SGOT) 16 U/L (<=31); Alanine Aminotransfer ALT/SGPT 10 U/L (<=34); Albumin, Serum 4.2 g/dL (3.4-4.8); Alkaline Phosphatase 113 U/L (35-104); Anion Gap 11 (5-15); BUN 14 mg/dL (4-19); BUN/Creat Ratio 14.7 RATIO (10-20); Calcium,Total 9.2 mg/dL (7.6-11.0); Carbon Dioxide 23.4 mmol/L (21.0-32.0); Chloride 103 mmol/L (98-108); Ferritin 18 ng/mL (22-378); Globulin 2.8 g/dL (2.2-4.2); Glucose 79 mg/dL (70-99); Iron 34 ug/dL (50-170); Potassium 4.4 mmol/L (3.3-5.1); Vitamin B12 346 pg/mL (180-914); Vitamin D,25 Hydroxy 56.1 ng/mL (30-100)
[2025-04-22 12:08] LABS: ANTINUCLEAR ANTIBODIES DIRECT Negative (Negative)
== END | disposition home or self-care (01) ==
LOC: MFPLAB 15:53
PROVIDERS: PCP Family Medicine; Visit Provider Family Medicine
DX: D64.9 Anemia, unspecified (principal); G62.9 Polyneuropathy, unspecified
CPT/HCPCS: 36415; 80053; 82306; 82607; 82728; 83036; 83540; 84443; 85027; 85652; 86038

== ENCOUNTER → 2025-05-20 | Outpatient (CLI) | payer MEDICARE, SELFPAY ==
[2025-05-20 15:20] LABS: Hematocrit 35.5 % (37-47); Hemoglobin 11.3 g/dL (12.0-15.0); Immature Granulocytes Count 0.030 X10^3/uL (0.0-0.0); Mean Corp Hgb Conc 31.8 g/dL (32-36); Mean Corpuscular Volume 84.3 fL (81-99); Mean Platelet Vol. 10.8 fl (6.2-12.0); NRBC Flagged by Analyzer 0 % (0-5); Platelet Count 204 K/mm3 (150-450); RBC Distribution Width CV 17.9 % (11.6-14.6); RBC Distribution Width SD 54.6 fl (35.1-43.9); Red Blood Count 4.21 M/mm3 (4.2-5.4); White Blood Count 6.5 K/mm3 (4.4-11.0)
[2025-05-20 15:40] LABS: Microalbumin,Random Urine 22.1 mg/L (<20 mg/L)
[2025-05-20 15:50] LABS: Ferritin 58 ng/mL (22-378); Iron 55 ug/dL (50-170); Iron Binding Capacity,Total 364 ug/dL (250-450); Iron Binding Capacity,Unsat 309 ug/dL (228-428)
[2025-05-20 16:13] LABS: Immature Reticulocyte Fraction 14.00 % (3.00-15.90); Reticulocyte Count 3.69 % (0.5-1.5)
== END | disposition home or self-care (01) ==
LOC: MTLAB 13:11
PROVIDERS: PCP Family Medicine; Referring Provider Family Medicine; Visit Provider Family Medicine
DX: D64.9 Anemia, unspecified (principal); I10 Essential (primary) hypertension
CPT/HCPCS: 36415; 82043; 82728; 83540; 83550; 85025; 85045